=== PATIENT | female | born 1950 | race Caucasian/White ===

== ENCOUNTER 2020-07-07 08:58 | Outpatient (REF) | payer MEDICARE, SELFPAY ==
[2020-07-07 14:35] LABS: Thyroid Stimulating Hormone 1.04 uIU/mL (0.32-4.0)
[2020-07-07 15:05] LABS: T4 Thyroxine 6.6 ug/dL (4.5-12.0)
[2020-07-08 08:18] LABS: Triiodothyronine T3 Total 63 ng/dL (76-181)
== END 2020-07-07 08:59 | disposition home or self-care (01) ==
LOC: HO.10HDL 08:58
PROVIDERS: Visit Provider Internal Medicine Pulmonary Disease
DX: L65.9 Nonscarring hair loss, unspecified (principal)
CPT/HCPCS: 36415; 84436; 84443; 84480

== ENCOUNTER 2020-09-19 08:13 | Day surgery (SDC) | payer MEDICARE, SELFPAY ==
[2020-09-15 11:00] VITALS: BMI 22.6
--- NOTE | 2020-09-16 14:52 | HO.ANESPROP2 ---
Documented by User: Sharmin Lin 09/16/20 14:52 HPI - Anesthesia Eval Consult details Narrative: 70yo F for Colonoscopy FOR[facility] Past Medical History Medical History (Updated 09/15/20 @ 10:56 by Korin Villegas) No significant medical problems Surgical History Surgical History (Updated 09/15/20 @ 10:56 by Korin Villegas) H/O colonoscopy History of Social History Social History (Updated 09/15/20 @ 11:01 by Korin Villegas) Household Members: Spouse Patient Tobacco Use Status: Tobacco use Unknown Are you DNR?: No Advance Directives Information Provided: No Meds Allergies Allergy/AdvReac Type Severity Reaction Status Date / Time No Known Allergies Allergy Unverified 12/20/19 15:16 [No Known Allergies*] Home Medications Medication Instructions Recorded Confirmed Last Taken Type calcium carbonate-vitamin D2 1 tab PO DAILY 09/15/20 09/15/20 Unknown History [Calcium + Vitamin D] multivitamin 1 tab PO DAILY 09/15/20 09/15/20 Unknown History Exam Exam Date and Time: September 16, 2020 1452 Height,Weight and Vital Signs: Height 5 ft 5 in Weight 61.689 kg Assessment and Plan Assessment Anesthesia Assessment: Chart Reviewed Documented by User: Ann Peck 09/19/20 08:57 [facility] Past Medical History Medical History (Updated 09/15/20 @ 10:56 by Korin Villegas) No significant medical problems Surgical History Surgical History (Updated 09/15/20 @ 10:56 by Korin Villegas) H/O colonoscopy History of Social History Social History (Updated 09/15/20 @ 11:01 by Korin Villegas) Household Members: Spouse Patient Tobacco Use Status: Tobacco use Unknown Are you DNR?: No Advance Directives Information Provided: No Meds Allergies Allergy/AdvReac Type Severity Reaction Status Date / Time No Known Allergies Allergy Unverified 12/20/19 15:16 [No Known Allergies*] Home Medications Medication Instructions Recorded Confirmed Last Taken Type calcium carbonate-vitamin D2 1 tab PO DAILY 09/15/20 09/15/20 Unknown History [Calcium + Vitamin D] multivitamin 1 tab PO DAILY 09/15/20 09/15/20 Unknown History Exam Airway Mallampati Class: I TM Dist: >3cm Neck ROM: Full Heart: rrr Lungs: cta Assessment and Plan Assessment Anesthesia Assessment: Anesthesia Plan Discussed and Chart Reviewed Final Anesthetic Review NPO: Yes ASA Class: II Final Preanesthetic Review: No Changes in Pt Med Stat and Consent Obtained/Reviewed Patient Risk: Intermediate Procedure Risk: Intermediate Anesthetic Plan Anesthetic Plan: MAC: Disposition: Standard PACU
[2020-09-19 08:34] VITALS: BP 136/68; PULSE 65; RESP 18; TEMP 36.7; O2SAT 98
[2020-09-19] MEDS: Lactated Ringers 1,000 ML 100 ML IVCONT (08:41)
[2020-09-19 09:48] VITALS: BP 107/48; PULSE 65; RESP 16; TEMP 36.1; O2SAT 94
--- NOTE | 2020-09-19 09:52 | P.BOP_ITS ---
Brief Operative Note Date of Service: 09/19/20 Pre-op diagnosis: Screening Post-op diagnosis: other (Diverticulosis) Procedure: Colonoscopy to the cecum Surgeon: Rodrigo Moss Anesthesia: MAC Was an Analytical Chemistry Teacher used for this Procedure?: No Estimated blood loss (mL): 0 Pathology: none sent Condition: stable Disposition: PACU
[2020-09-19 10:03] VITALS: BP 104/57; PULSE 56; RESP 16; TEMP 36.1; O2SAT 99
[2020-09-19 10:18] VITALS: BP 105/48; PULSE 51; RESP 16; TEMP 36.1; O2SAT 98
[2020-09-19 10:51] VITALS: BP 114/48; PULSE 50; RESP 16; TEMP 36.1; O2SAT 100
--- NOTE | 2020-09-19 10:57 | OP_ITS ---
SURGEON: Rodrigo Moss MD INDICATIONS: The patient presents for followup of colorectal cancer screening. Full consent has been obtained from her for this, including risks of bleeding and perforation. PREOPERATIVE DIAGNOSIS: Colorectal cancer screening. POSTOPERATIVE DIAGNOSIS: PROCEDURE PERFORMED: Colonoscopy to the cecum. ESTIMATED BLOOD LOSS: COMPLICATIONS: ANESTHESIA: Monitored anesthesia care. ASSISTANTS: SPECIMENS: POSTOPERATIVE DIAGNOSES: Colorectal cancer screening, mild sigmoid diverticulosis, small internal hemorrhoids. DESCRIPTION OF PROCEDURE: The patient was placed in the left lateral decubitus position. The digital rectal exam revealed no abnormalities. The Olympus video pediatric colonoscope was entered into the rectum and advanced easily to the cecum. Once in the cecum, I did identify normal-appearing cecal pouch with appendiceal orifice and a normal-appearing ileocecal valve. There was transillumination of light deep in the right lower quadrant. The entire cecum was well visualized and appeared normal. Scope was slowly withdrawn assessing all mucosal surfaces carefully. Preparation was excellent. I did not visualize any sign of polyps, colitis, nor angiodysplasia. There was a mild amount of sigmoid diverticulosis. In the rectum, scope was retroflexed visualizing minimal internal hemorrhoids, but no other pathology. The rectal mucosa appeared normal. The scope was straightened and withdrawn from the patient. She tolerated the procedure well and was returned to recovery area in stable condition. IMPRESSION: 1. Mild sigmoid diverticulosis. 2. Small internal hemorrhoids. PLAN: Given today's negative exam, negative colonoscopies in 2004 and 2010, and no family history of colorectal cancer, I do not think she will need any further screening colonoscopies at this point given her age. She will otherwise see me on a p.r.n. basis. MD YAMIL Freeman/SPEEDY / [id number]
[2020-09-19 11:23] VITALS: BP 119/60; PULSE 57; RESP 16; O2SAT 99
== END 2020-09-19 13:11 | disposition home or self-care (01) ==
PROVIDERS: PCP Internal Medicine; Visit Provider Internal Medicine
PROC: 0DJD8ZZ Inspection of Lower Intestinal Tract, Via Natural or Artificial Opening Endoscopic (ICD-10-PCS; CPT 45378; principal; 2020-09-19 09:00)
DX: Z12.11 Encounter for screening for malignant neoplasm of colon (principal); Z86.010 Personal history of colon polyps; K57.30 Diverticulosis of large intestine without perforation or abscess without bleeding; K64.8 Other hemorrhoids; K58.1 Irritable bowel syndrome with constipation
CPT/HCPCS: G0105

== ENCOUNTER 2020-10-21 15:46 | Outpatient (REF) | payer MEDICARE, SELFPAY ==
--- NOTE | ~2020-10-21 | MM_ITS ---
EXAMINATION: MM SCREENING DIGITAL BREAST TOMOSYNTHESIS, BILATERAL CLINICAL INFORMATION: Screening. Asymptomatic. The lifetime risk of breast cancer based on the Tyrer-Cuzick Model is 5%. COMPARISON: Mammography: 09/17/2019, 09/11/2018, 08/09/2017, 07/05/2016, 12/22/2015, 07/01/2015, 05/20/2015. TECHNIQUE: Digital breast tomosynthesis is performed in both the craniocaudal and mediolateral oblique views along with computer-aided detection (CAD). Synthesized 2D images are generated from the tomosynthesis. FINDINGS: The breasts are heterogeneously dense, which may obscure small masses (ACR BI-RADS breast composition Category c). Breast tissue composition borders on average fibroglandular. The parenchymal pattern is similar to prior studies. There is no interval mass or architectural abnormality or developing density. No abnormal calcifications on the right. The axilla and skin contours are unremarkable. Left breast has focal calcifications central upper outer breast mid depth, possibly early vascular on tomography. It is uncertain if these are new or coarsening of old calcifications previously under surveillance. Patient will be recalled for additional magnification views. MM/MM tomosynthesis screening BI IMPRESSION: 1. Left: Calcifications central upper outer breast mid depth, possibly early vascular on tomography. It is uncertain if these are new or coarsening of calcifications previously under surveillance. 2. Right: There are no significant changes from prior study. ASSESSMENT: BI-RADS 0: Incomplete - Need Additional Imaging Evaluation RECOMMENDATION: 1. Additional views of the left breast (magnification CC, magnification ML). 2. Radiology department staff will contact the patient for additional imaging. This patient's information was entered into a reminder system with a target due date for their next mammogram.
== END 2020-10-21 15:47 | disposition home or self-care (01) ==
LOC: HO.MAMMO 15:46
PROVIDERS: PCP Internal Medicine; Visit Provider Internal Medicine
DX: Z12.31 Encounter for screening mammogram for malignant neoplasm of breast (principal)
CPT/HCPCS: 77063; 77067

== ENCOUNTER 2020-10-27 10:29 | Outpatient (REF) | payer MEDICARE, SELFPAY ==
--- NOTE | ~2020-10-27 | MM_ITS ---
EXAMINATION: MM DIAGNOSTIC DIGITAL MAMMOGRAPHY, LEFT CLINICAL INFORMATION: Recall from screening for calcifications central upper outer left breast mid depth. Prior history left breast calcifications under surveillance same quadrant. COMPARISON: Mammography: 10/21/2020, 09/17/2019, 09/11/2018, 08/09/2017, 07/05/2016 TECHNIQUE: Digital mammography is performed in the following views: Magnification CC, magnification ML x2. FINDINGS: The breasts are heterogeneously dense, which may obscure small masses (ACR BI-RADS breast composition Category c). The additional magnification views demonstrate a few new faint tubular-shaped calcifications central upper outer breast corresponding to recent screening mammography, possibly early ductal secretory type. Management plan is for short interval six-month follow-up left mammography in 6 months to include magnification views. The previously followed tightly grouped calcifications mid upper outer left breast residing slightly more posterior are uniform punctate and stable in number and appearance from prior remote diagnostic magnification views 2017 and 2016. Results are discussed with the patient at time of visit. MM/MM added views LT IMPRESSION: 1. New probable benign calcifications central upper outer left breast. 2. The prior grouped calcifications mid upper outer left breast under surveillance are stable. ASSESSMENT: BI-RADS 3: Probably Benign RECOMMENDATION: Diagnostic left mammography in 6 months. This patient's information was entered into a reminder system with a target due date for their next mammogram.
== END 2020-10-27 10:30 | disposition home or self-care (01) ==
LOC: HO.MAMMO 10:29
PROVIDERS: Visit Provider Internal Medicine
DX: R92.1 Mammographic calcification found on diagnostic imaging of breast (principal)
CPT/HCPCS: 77065

== ENCOUNTER 2020-12-17 09:27 | Outpatient (REF) | payer MEDICARE, SELFPAY ==
[2020-12-17 11:19] LABS: Appearance Urine CLEAR; Color Urine YELLOW; Glucose Urine UA NEG (NEG); Leukocyte Esterase Urine TRACE (NEG); Nitrite Urine NEG (NEG); PH 6.5 (5.0-8.0); Specific Gravity - Urine 1.015 (1.005-1.025); Urine Blood NEG (NEG); Urine Ketones NEG (NEG); Urine Protein NEG (NEG-TRACE)
[2020-12-17 11:22] LABS: MANUAL DIFF FLAG NO
[2020-12-17 11:31] LABS: Basophils Percent Auto 0.6 % (0-2); Eosinophils Absolute Auto 0.1 X10*3/uL (0.0-0.4); Eosinophils Percent Auto 2.9 % (0-4); Hematocrit 38.5 % (37-47); Hemoglobin 12.8 g/dl (12.0-16.0); Imm Gran Abs Auto 0.01 X10*3/uL (0.00-0.03); Imm Gran Pct Auto 0.2 % (0.0-0.4); Lymphocytes Absolute Auto 1.5 X10*3/uL (1.2-4.9); Mean Corpuscular HGB Conc 33.2 g/dl (31.0-35.0); Mean Corpuscular Hemoglobin 31.4 pg (27.0-33.0); Mean Corpuscular Volume 94.6 fL (80-98); Mean Platelet Volume 11.4 fL (9.4-12.3); Monocytes Absolute Auto 0.4 X10*3/uL (0.1-1.2); Monocytes Percent Auto 7.3 % (2-11); Neutrophils Absolute Auto 2.8 X10*3/uL (2.0-8.3); Platelet Count 216 X10*3/uL (160-400); Red Blood Count 4.07 X10*6/uL (4.20-5.50); Red Cell Distribution Width 12.5 % (11.0-16.0); White Blood Count 4.8 X10*3/uL (4.8-10.8)
[2020-12-17 11:32] LABS: RBC Urine 0 /HPF (0); Squamous Epithelial Cell Urine TRACE /LPF; WBC Urine 0-2 /HPF (0-4)
[2020-12-17 12:44] LABS: Alanine Aminotransferase 15 U/L (0-31); Albumin Level 4.1 g/dL (3.5-5.0); Alkaline Phosphatase 61 U/L (39-117); Anion Gap 11 (12-20); Aspartate Amino Transferase 21 U/L (5-31); Bilirubin Total 0.8 mg/dL (0.0-1.0); Blood Urea Nitrogen 18 mg/dL (9-16); Calcium 9.1 mg/dL (8.4-10.2); Carbon Dioxide 27 mmol/L (22-29); Chloride 109 mmol/L (96-108); Cholesterol 191 mg/dL; Estimated Glomerular Filt Rate > 60; Glucose Fasting 97 mg/dL (60-99); HDL Cholesterol 65 mg/dL; LDL Cholesterol Calculated 116 mg/dl; Potassium 4.5 mmol/L (3.3-5.1); Sodium 142 mmol/L (135-145); Total Protein 6.1 g/dL (6.5-8.0); Triglycerides 50 mg/dL
[2020-12-17 13:16] LABS: Thyroid Stimulating Hormone 0.65 uIU/mL (0.32-4.0); Vitamin D 25-OH Total 51.4 ng/mL (>30)
== END 2020-12-17 09:28 | disposition home or self-care (01) ==
LOC: HO.HMGCLDS 09:27
PROVIDERS: PCP Internal Medicine; Visit Provider Internal Medicine
DX: Z00.00 Encounter for general adult medical examination without abnormal findings (principal)
CPT/HCPCS: 36415; 80053; 80061; 81001; 82306; 84443; 85025

== ENCOUNTER → 2020-12-25 14:49 | Outpatient (BNVA) | payer MEDICARE, SELFPAY | PROVIDERS: PCP Internal Medicine; Visit Provider Advanced Practice Midwife | DX: Z01.419 Encounter for gynecological examination (general) (routine) without abnormal findings (principal); N90.89 Other specified noninflammatory disorders of vulva and perineum | CPT/HCPCS: 99212 ==

== ENCOUNTER 2021-02-16 10:26 | Outpatient (REF) | payer MEDICARE, SELFPAY | END 2021-02-16 10:27 | disposition home or self-care (01) | LOC: HO.LAB 10:26 | PROVIDERS: PCP Internal Medicine; Visit Provider Obstetrics & Gynecology | DX: N90.89 Other specified noninflammatory disorders of vulva and perineum (principal) | CPT/HCPCS: 88305; 88312 ==

== ENCOUNTER 2021-06-04 12:25 | Outpatient (REF) | payer MEDICARE, SELFPAY ==
--- NOTE | ~2021-06-04 | MM_ITS ---
EXAMINATION: MM DIAGNOSTIC DIGITAL BREAST TOMOSYNTHESIS, LEFT CLINICAL INFORMATION: Short interval follow-up probable benign calcifications central upper outer left breast. No known family history breast cancer. The lifetime risk of breast cancer based on the Tyrer-Cuzick Model is 5%. COMPARISON: Mammography: 10/27/2020, 10/21/2020 (BI-RADS 0), diagnostic mammography 08/09/2017 (BI-RADS 2). TECHNIQUE: Digital breast tomosynthesis is performed in both the craniocaudal and mediolateral oblique views along with computer-aided detection (CAD). Synthesized 2D images are generated from the tomosynthesis. Additional magnification CC and magnification ML views are obtained. FINDINGS: There are scattered areas of fibroglandular density (ACR BI-RADS breast composition Category b). Breast tissue composition borders on heterogeneously dense. There is no interval mass or architectural abnormality or developing density. The axilla and skin contours are unremarkable. There are tightly grouped punctate calcifications mid upper outer left breast previously under surveillance which are stable since prior diagnostic exam 2018. The more recent loosely grouped calcifications central upper outer left breast are unchanged in number and geographic extent. The calcifications appear amorphous on the CC view and do not have the typical appearance for early ductal secretory type. The calcifications are unchanged in appearance on the ML view. Results are discussed with the patient and her spouse. Management options were discussed including stereotactic sampling versus continued short interval follow-up diagnostic mammography. Patient is in favor of stereotactic sampling. MM/MM tomosynthesis diagnostic LT IMPRESSION: Although unchanged in number, the calcifications for follow-up appear amorphous on the CC view rather than early ductal secretory type. ASSESSMENT: BI-RADS 4: Suspicious (subcategory 4A: Low suspicion for malignancy) RECOMMENDATION: Stereotactic sampling left breast calcifications. This patient's information was entered into a reminder system with a target due date for their next mammogram.
== END 2021-06-04 12:26 | disposition home or self-care (01) ==
LOC: HO.MAMMO 12:25
PROVIDERS: PCP Internal Medicine; Visit Provider Internal Medicine
DX: R92.1 Mammographic calcification found on diagnostic imaging of breast (principal)
CPT/HCPCS: 77061; 77065

== ENCOUNTER → 2021-06-11 09:09 | Outpatient (BNVA) | payer MEDICARE, SELFPAY | PROVIDERS: PCP Internal Medicine; Visit Provider Surgery | DX: R92.8 Other abnormal and inconclusive findings on diagnostic imaging of breast (principal) | CPT/HCPCS: 99202 ==

== ENCOUNTER 2021-06-12 07:57 | Outpatient (REF) | payer MEDICARE, SELFPAY ==
--- NOTE | ~2021-06-12 | MM_ITS ---
EXAMINATION: STEREOTACTIC TOMOSYNTHESIS-GUIDED VACUUM-ASSISTED BREAST BIOPSY, LEFT SPECIMEN RADIOGRAPH, LEFT POST PROCEDURE DIGITAL MAMMOGRAM, LEFT CLINICAL INFORMATION: Grouped calcifications mid upper outer left breast for sampling. COMPARISON: Mammography 10/21/2020, 10/27/2020, 06/04/2021. TECHNIQUE/PROCEDURE: Informed consent was obtained from the patient after discussion of the benefits, risks, and alternatives to biopsy today. Patient appeared to understand. Gave opportunity for questions. Patient signed consent form. BIOPSY TABLE: [employer] Affirm Prone Biopsy System. LESION: Grouped calcifications mid upper outer left breast. LOCAL ANESTHESIA: 10 mL carbonated 1% lidocaine; 10 mL 1% lidocaine with epinephrine. DERMATOTOMY: Single skin erasto dermatotomy performed. NEEDLE: Stayfuliva 9-gauge vacuum assisted core biopsy device. APPROACH: craniocaudal. TARGETING: Combination of digital breast tomosynthesis and stereotactic digital mammography used for targeting. CORES: 8. CLIP: [employer] SecurMark Cylinder-shaped marker. SPECIMEN RADIOGRAPH: Specimen radiograph is taken in separate room using digital mammography. The index calcifications are in the excised cores. There are at least 8 calcifications in the cores. POST PROCEDURE UNILATERAL DIGITAL MAMMOGRAM: The post biopsy mammogram is performed in separate room using separate digital mammography equipment from the biopsy procedure. CC and ML views are obtained. There are scattered areas of fibroglandular density (breast composition category: b). The clip marker is in position. The calcifications are markedly decreased at the biopsy site. No gross hematoma. The patient tolerated the procedure well. No immediate complications. Home instructions reviewed with the patient. Final pathology results are pending. MM/MM stereotactic biopsy LT IMPRESSION: 1. Digital tomosynthesis-guided core biopsy left breast with clip placement. 2. Specimen radiograph taken and post procedure mammogram. There is satisfactory positioning of the biopsy clip. 3. Final pathology results pending. An addendum report will be issued.
[2021-06-12] MEDS: Lidocaine HCl 1 % 20 ML VIAL 10 ML SUBCUT (09:20)
[2021-06-12] MEDS: Sodium Bicarbonate 8.4% 50 MEQ/50 ML VIAL SUBCUT (09:22)
== END 2021-06-12 07:58 | disposition home or self-care (01) ==
LOC: HO.MAMMO 07:57
PROVIDERS: PCP Internal Medicine; Visit Provider Surgery
DX: R92.1 Mammographic calcification found on diagnostic imaging of breast (principal)
CPT/HCPCS: 19081; 88305; 88360; A4648

== ENCOUNTER → 2021-06-16 10:11 | Outpatient (BNVA) | payer MEDICARE, SELFPAY | PROVIDERS: PCP Internal Medicine; Visit Provider Surgery | DX: D05.12 Intraductal carcinoma in situ of left breast (principal) | CPT/HCPCS: 99212 ==

== ENCOUNTER 2021-11-16 11:31 | Outpatient (REF) | payer MEDICARE, SELFPAY ==
[2021-11-16 13:47] LABS: MANUAL DIFF FLAG NO
[2021-11-16 13:58] LABS: C Reactive Protein 1.78 mg/dL (< or = 0.50)
[2021-11-16 14:23] LABS: Free T4 (Free Thyroxine) 1.73 ng/dL (0.71-1.85); Thyroid Stimulating Hormone < 0.01 uIU/mL (0.32-4.0)
[2021-11-16 15:23] LABS: Erythrocyte Sedimentation Rate 16 MM/HR (0-20)
[2021-11-16 18:27] LABS: Basophils Percent Auto 0.3 % (0-2); Eosinophils Absolute Auto 0.1 X10*3/uL (0.0-0.4); Eosinophils Percent Auto 1.1 % (0-4); Hematocrit 39.1 % (37.0-47.0); Hemoglobin 12.6 g/dl (12.0-16.0); Imm Gran Abs Auto 0.02 X10*3/uL (0.00-0.03); Imm Gran Pct Auto 0.3 % (0.0-0.4); Lymphocytes Absolute Auto 1.1 X10*3/uL (1.2-4.9); Lymphocytes Percent Auto 18.3 % (20-40); Mean Corpuscular HGB Conc 32.2 g/dl (31.0-35.0); Mean Corpuscular Hemoglobin 30.4 pg (27.0-33.0); Mean Corpuscular Volume 94.4 fL (80.0-98.0); Mean Platelet Volume 10.7 fL (9.4-12.3); Monocytes Absolute Auto 0.6 X10*3/uL (0.1-1.2); Monocytes Percent Auto 10.3 % (2-11); Neutrophils Absolute Auto 4.3 x10*3/uL (2.0-8.3); Neutrophils Percent Auto 69.7 % (45-73); Platelet Count 261 X10*3/uL (160-400); Red Blood Count 4.14 X10*6/uL (4.20-5.50); Red Cell Distribution Width 12.1 % (11.0-16.0); White Blood Count 6.1 X10*3/uL (4.8-10.8)
[2021-11-18 05:32] LABS: Triiodothyronine T3 Free 5.8 pg/mL (2.3-4.2)
== END 2021-11-16 11:32 | disposition home or self-care (01) ==
LOC: HO.HMGCLDS 11:31
PROVIDERS: PCP Internal Medicine; Visit Provider Internal Medicine
DX: M54.2 Cervicalgia (principal)
CPT/HCPCS: 36415; 84439; 84443; 84481; 85025; 85652; 86140

== ENCOUNTER → 2021-11-25 09:18 | Outpatient (BNVA) | payer MEDICARE, SELFPAY | PROVIDERS: PCP Internal Medicine; Visit Provider Internal Medicine Endocrinology, Diabetes & Metabolism | DX: E05.90 Thyrotoxicosis, unspecified without thyrotoxic crisis or storm (principal) | CPT/HCPCS: 99202 ==

== ENCOUNTER → 2021-12-01 10:23 | Outpatient (REF) | payer MEDICARE, SELFPAY ==
--- NOTE | ~2021-12-01 | NM_ITS ---
EXAMINATION: NM THYROID UPTAKE AND SCAN CLINICAL INFORMATION: Thyrotoxicosis. Tender neck. COMPARISON: None TECHNIQUE: Following the oral administration of 0.27 microcuries of I-123 sodium iodide, thyroid uptake was performed and expressed as a percentage of the administrated dose. Gamma scintillation camera images of the thyroid in the anterior and right and left anterior oblique views were obtained using a pinhole collimator following the administration of 10 mCi Tc-99m pertechnetate. FINDINGS: On thyroid scan no thyroid gland is visualized. A 24-hour radioactive iodine uptake is 0.36%. On Technetium imaging there is faint visualization of thyroid gland after more than 5 minutes of imaging. NM/NM thyroid w uptake IMPRESSION: Findings consistent with hypoactive thyroid gland secondary to inflammatory process. Radioactive thyroid uptake is 0.36% at 24 hours. The thyroid gland is barely visible on Technetium study.
== END ==
LOC: HO.NUCMED 10:23
PROVIDERS: PCP Internal Medicine; Visit Provider Internal Medicine Endocrinology, Diabetes & Metabolism
DX: E05.90 Thyrotoxicosis, unspecified without thyrotoxic crisis or storm (principal)
CPT/HCPCS: 78014; A9512; A9516

== ENCOUNTER 2021-12-02 11:58 | Outpatient (REF) | payer MEDICARE, SELFPAY ==
[2021-12-02 14:27] LABS: Free T4 (Free Thyroxine) 1.75 ng/dL (0.71-1.85); Thyroid Stimulating Hormone < 0.01 uIU/mL (0.32-4.0)
[2021-12-03 23:56] LABS: Triiodothyronine T3 Free 6.3 pg/mL (2.3-4.2)
== END 2021-12-02 11:59 | disposition home or self-care (01) ==
LOC: HO.LAB 11:58
PROVIDERS: PCP Internal Medicine; Visit Provider Internal Medicine Endocrinology, Diabetes & Metabolism
DX: E05.90 Thyrotoxicosis, unspecified without thyrotoxic crisis or storm (principal)
CPT/HCPCS: 36415; 84439; 84443; 84481

== ENCOUNTER 2022-01-04 14:11 | Outpatient (REF) | payer MEDICARE, SELFPAY ==
[2022-01-04 17:25] LABS: Free T4 (Free Thyroxine) 0.96 ng/dL (0.71-1.85); Thyroid Stimulating Hormone 0.06 uIU/mL (0.32-4.0)
[2022-01-06 04:56] LABS: Triiodothyronine T3 Free 2.9 pg/mL (2.3-4.2)
== END 2022-01-04 14:12 | disposition home or self-care (01) ==
LOC: HO.HMGCLDS 14:11
PROVIDERS: PCP Internal Medicine; Visit Provider Internal Medicine Endocrinology, Diabetes & Metabolism
DX: E05.90 Thyrotoxicosis, unspecified without thyrotoxic crisis or storm (principal)
CPT/HCPCS: 36415; 84439; 84443; 84481

== ENCOUNTER 2022-02-10 14:56 | Outpatient (REF) | payer MEDICARE, SELFPAY ==
[2022-02-10 17:13] LABS: Free T4 (Free Thyroxine) 0.93 ng/dL (0.71-1.85)
== END 2022-02-10 14:57 | disposition home or self-care (01) ==
LOC: HO.HMGCLDS 14:56
PROVIDERS: PCP Internal Medicine; Visit Provider Internal Medicine Endocrinology, Diabetes & Metabolism
DX: E05.90 Thyrotoxicosis, unspecified without thyrotoxic crisis or storm (principal)
CPT/HCPCS: 36415; 84439; 84443

== ENCOUNTER → 2022-02-19 14:37 | Outpatient (BNVA) | payer MEDICARE, SELFPAY | PROVIDERS: PCP Internal Medicine; Visit Provider Internal Medicine Endocrinology, Diabetes & Metabolism | DX: E05.90 Thyrotoxicosis, unspecified without thyrotoxic crisis or storm (principal) | CPT/HCPCS: 99212 ==

== ENCOUNTER 2022-06-02 15:36 | Outpatient (REF) | payer MEDICARE, SELFPAY ==
--- NOTE | ~2022-06-02 | XR_ITS ---
EXAMINATION: XR ABDOMEN WITH DECUBITUS VIEWS CLINICAL INDICATION: Right upper quadrant abdominal pain. COMPARISON: None TECHNIQUE: Abdomen with upright views. FINDINGS: Moderate scattered stool is seen in colon without any obstruction. There is no free air or air-fluid levels in upright view. There is no organomegaly. There is mild dextroscoliosis of mid lumbar spine. XR/XR abdomen w decubitus IMPRESSION: Mild constipation.
[2022-06-02 15:54] LABS: MANUAL DIFF FLAG NO
[2022-06-02 17:42] LABS: Basophils Absolute Auto 0.1 X10*3/uL (0.0-0.2); Basophils Percent Auto 0.8 % (0-2); Eosinophils Absolute Auto 0.1 X10*3/uL (0.0-0.4); Eosinophils Percent Auto 1.9 % (0-4); Hematocrit 41.1 % (37.0-47.0); Hemoglobin 13.6 g/dl (12.0-16.0); Imm Gran Abs Auto 0.02 X10*3/uL (0.00-0.03); Imm Gran Pct Auto 0.3 % (0.0-0.4); Lymphocytes Absolute Auto 1.5 X10*3/uL (1.2-4.9); Lymphocytes Percent Auto 24.3 % (20-40); Mean Corpuscular HGB Conc 33.1 g/dl (31.0-35.0); Mean Corpuscular Hemoglobin 30.9 pg (27.0-33.0); Mean Corpuscular Volume 93.4 fL (80.0-98.0); Mean Platelet Volume 10.3 fL (9.4-12.3); Monocytes Absolute Auto 0.5 X10*3/uL (0.1-1.2); Monocytes Percent Auto 8.3 % (2-11); Neutrophils Absolute Auto 4.1 x10*3/uL (2.0-8.3); Neutrophils Percent Auto 64.4 % (45-73); Platelet Count 226 X10*3/uL (160-400); Red Cell Distribution Width 12.4 % (11.0-16.0); White Blood Count 6.3 X10*3/uL (4.8-10.8)
[2022-06-02 17:53] LABS: Appearance Urine Clear; Color Urine Yellow; Glucose Urine UA Negative (Negative); Leukocyte Esterase Urine Negative (Negative); Nitrite Urine Negative (Negative); Specific Gravity - Urine <= 1.005 (1.005-1.025); Urine Blood Negative (Negative); Urine Ketones Negative (Negative); Urine Protein Negative (Neg-Trace)
[2022-06-02 18:27] LABS: Alanine Aminotransferase 47 U/L (0-31); Albumin Level 4.3 g/dL (3.5-5.0); Alkaline Phosphatase 71 U/L (39-117); Anion Gap 13 (12-20); Aspartate Amino Transferase 36 U/L (5-31); Bilirubin Total 0.5 mg/dL (0.0-1.0); Blood Urea Nitrogen 19 mg/dL (9-16); C Reactive Protein 0.24 mg/dL (< or = 0.50); Calcium 9.6 mg/dL (8.4-10.2); Carbon Dioxide 29 mmol/L (22-29); Chloride 105 mmol/L (96-108); Estimated Glomerular Filt Rate > 60; Glucose Random 73 mg/dL (60-115); Potassium 4.6 mmol/L (3.3-5.1); Sodium 142 mmol/L (135-145); Total Protein 6.6 g/dL (6.5-8.0)
== END 2022-06-02 15:37 | disposition home or self-care (01) ==
LOC: HO.LAB 15:36
PROVIDERS: PCP Internal Medicine; Visit Provider Internal Medicine
DX: R10.11 Right upper quadrant pain (principal)
CPT/HCPCS: 36415; 74021; 80053; 81003; 85025; 86140

== ENCOUNTER 2022-06-18 13:07 | Outpatient (REF) | payer MEDICARE, SELFPAY ==
[2022-06-18 14:48] LABS: Alanine Aminotransferase 65 U/L (0-31); Alkaline Phosphatase 69 U/L (39-117); Aspartate Amino Transferase 61 U/L (5-31); Bilirubin Direct < 0.2 mg/dL (0.0-0.5); Bilirubin Total 0.5 mg/dL (0.0-1.0); Total Protein 6.1 g/dL (6.5-8.0)
== END 2022-06-18 13:08 | disposition home or self-care (01) ==
LOC: HO.HMGCLDS 13:07
PROVIDERS: PCP Internal Medicine; Visit Provider Internal Medicine
DX: Z13.89 Encounter for screening for other disorder (principal)
CPT/HCPCS: 36415; 80076

== ENCOUNTER 2022-06-18 13:18 | Outpatient (REF) | payer MEDICARE, SELFPAY ==
--- NOTE | ~2022-06-18 | US_ITS ---
EXAMINATION: US PELVIS CLINICAL INFORMATION: Right lower quadrant pain. Postmenopausal, age 71. Prior history uterine fibroids. COMPARISON: CT abdomen and pelvis with contrast 06/30/2015; MR pelvis with contrast 05/17/2005 (report); ultrasound pelvis 05/06/2005 (report). TECHNIQUE: Ultrasound of the pelvis is performed using both transabdominal and transvaginal transducers along with Doppler. Transvaginal imaging is performed due to inadequate visualization transabdominally. FINDINGS: Uterus: The uterus is anteverted and measures 6.4 x 4.2 x 5.5 cm. Volume 77 mL. Prior ultrasound measurements 2006:12.6 x 5.2 x 7.6 cm; volume 259 mL The double wall endometrial thickness is normal: 2.5 mm. Again, there is an intramural left uterine fundal/body fibroid, nearly isoechoic, mildly heterogeneous, with overall dimensions 4.8 x 1.6 x 4.2 cm. Prior measurements 2006: 4.0 x 2.0 x 3.9 cm. There is also a small heavily calcified fibroid peripheral intramural close to some serous right body measuring 0.7 x 0.6 x 0.9 cm. Prior ultrasound report 2005 notes 2 cm subserous fundal fibroid. Adnexa: Right ovary measures 2.1 x 1.3 x 1.9 cm. Volume 2.8 mL. Left ovary: Not visualized. There is no visible pelvic adnexal mass. No pelvic ascites. US/US pelvic and transvaginal IMPRESSION: -Uterine fibroids, larger 4.8 cm. Prior measurement 4.0 cm in 2006. No significant change. -Right ovary unremarkable. Left ovary not visualized. -No pelvic ascites.
== END 2022-06-18 13:19 | disposition home or self-care (01) ==
LOC: HO.HMGCX 13:18
PROVIDERS: PCP Internal Medicine; Visit Provider Internal Medicine
DX: R10.31 Right lower quadrant pain (principal)
CPT/HCPCS: 36415; 76830; 76856; 80076

== ENCOUNTER → 2022-07-21 13:26 | Outpatient (BNVA) | payer MEDICARE, SELFPAY | PROVIDERS: PCP Internal Medicine; Visit Provider Obstetrics & Gynecology | DX: R10.9 Unspecified abdominal pain (principal); D21.9 Benign neoplasm of connective and other soft tissue, unspecified | CPT/HCPCS: 99212 ==

== ENCOUNTER → 2022-07-26 10:59 | Outpatient (BNVA) | payer MEDICARE, SELFPAY | PROVIDERS: PCP Internal Medicine; Visit Provider Anesthesiology | DX: R10.9 Unspecified abdominal pain (principal); G58.9 Mononeuropathy, unspecified | CPT/HCPCS: 99202 ==

== ENCOUNTER 2022-08-26 10:31 | Day surgery (SDC) | payer MEDICARE, SELFPAY ==
[2022-08-24 11:05] VITALS: BMI 25.1
--- NOTE | 2022-08-25 09:14 | P.CONAN_ITS ---
Documented by User: Sharmin Lin NP 08/25/22 09:14 HPI - Anesthesia Eval Consult details Narrative: 72yo F for Right Diagnostic Transversus Abdominal Plane Block PMFSH Active Problems Active Problems: All Active Problems (Updated 08/24/22 @ 10:56 by Rosa Menchaca, RN) Encounter for annual routine gynecological examination (Acute) Vulvar lesion (Acute) Abnormal mammogram of left breast (Acute) DCIS (ductal carcinoma in situ) (Acute) Abdominal pain (Acute) Myoma (Acute) Mononeuropathy, unspecified (Acute) Hyperthyroidism (Acute) Past Medical History Medical History Arthritis Back pain Ductal carcinoma of breast Hyperthyroidism No significant medical problems Family History Family History Mother Metastatic melanoma Surgical History Surgical History H/O colonoscopy History of History of lumpectomy of left breast Social History Social History Household Members: Spouse Alcohol intake: current Alcohol intake frequency: holidays/special occasions only Patient Tobacco Use Status: Never used Tobacco Advance Directives: No Advance Directives Information Provided: Yes Advance Directives on File: No Sexual orientation: Straight/Heterosexual Gender identity: Female Meds Allergies Allergy/AdvReac Type Severity Reaction Status Date / Time sulfamethoxazole Allergy Intermediate Diarrhea Verified 08/26/22 10:47 [From Bactrim] trimethoprim [From Bactrim] Allergy Intermediate Diarrhea Verified 08/26/22 10:47 ibuprofen AdvReac Unknown Gastrointestinal Verified 08/26/22 10:47 Upset Home Medications Medication Instructions Recorded Confirmed Last Taken Type calcium carb-ergocalciferol (vit 1 tab PO DAILY 09/15/20 08/24/22 Unknown History D2) 600 mg calcium-200 unit tablet multivitamin 1 tab PO DAILY 09/15/20 08/24/22 Unknown History anastrozole 1 mg tablet 1 mg PO DAILY 11/25/21 08/24/22 Unknown History cholecalciferol (vitamin D3) 25 25 mcg PO DAILY 11/25/21 08/24/22 Unknown History mcg (1,000 unit) capsule lorazepam 1 mg tablet 1 mg PO BEDTIME PRN Insomnia 02/19/22 08/24/22 Unknown History Exam Exam Date and Time: August 25, 2022 0914 Height,Weight and Vital Signs: Height 5 ft 4 in Weight 66.224 kg Pertinent Lab Results Pertinent Lab Results: Laboratory Tests 06/02/22 06/02/22 15:51 15:51 WBC 6.3 Hgb 13.6 Hct 41.1 Plt Count 226 Sodium 142 Potassium 4.6 Chloride 105 Carbon Dioxide 29 BUN 19 H Creatinine 0.77 Assessment and Plan Assessment Anesthesia Assessment: Chart Reviewed Documented by User: Anne Sanchez MD 08/26/22 11:35 PMFSH Past Medical History Medical History Arthritis Back pain Ductal carcinoma of breast Hyperthyroidism No significant medical problems Family History Family History Mother Metastatic melanoma Family history of problems with anesthesia: No Surgical History Surgical History H/O colonoscopy History of History of lumpectomy of left breast History of Problems with Anesthesia: No Social History Social History Household Members: Spouse Alcohol intake: current Alcohol intake frequency: holidays/special occasions only Patient Tobacco Use Status: Never used Tobacco Advance Directives: No Advance Directives Information Provided: Yes Advance Directives on File: No Sexual orientation: Straight/Heterosexual Gender identity: Female Meds Allergies Allergy/AdvReac Type Severity Reaction Status Date / Time sulfamethoxazole Allergy Intermediate Diarrhea Verified 08/26/22 10:47 [From Bactrim] trimethoprim [From Bactrim] Allergy Intermediate Diarrhea Verified 08/26/22 10:47 ibuprofen AdvReac Unknown Gastrointestinal Verified 08/26/22 10:47 Upset Home Medications Medication Instructions Recorded Confirmed Last Taken Type calcium carb-ergocalciferol (vit 1 tab PO DAILY 09/15/20 08/24/22 Unknown History D2) 600 mg calcium-200 unit tablet multivitamin 1 tab PO DAILY 09/15/20 08/24/22 Unknown History anastrozole 1 mg tablet 1 mg PO DAILY 11/25/21 08/24/22 Unknown History cholecalciferol (vitamin D3) 25 25 mcg PO DAILY 11/25/21 08/24/22 Unknown Hi story mcg (1,000 unit) capsule lorazepam 1 mg tablet 1 mg PO BEDTIME PRN Insomnia 02/19/22 08/24/22 Unknown History Exam Airway Mallampati Class: I TM Dist: >3cm Neck ROM: Full Loose/Missing/Broken Teeth: No Heart: rr Lungs: cta Assessment and Plan Assessment Anesthesia Assessment: Anesthesia Plan Discussed Final Anesthetic Review Family History of Problems with Anesthesia: No History of Problems with Anesthesia: No NPO: Yes ASA Class: I Final Preanesthetic Review: No Changes in Pt Med Stat, Meds/Allgs Chart Reviewed, Consent Obtained/Reviewed and Anes Risks/Benef Reviewed Patient Risk: Low Procedure Risk: Low Anesthetic Plan Anesthetic Plan: GA Disposition: Standard PACU
--- OUTSIDE RECORDS SUMMARY | 2022-08-26 10:33 | XMS_ITS ---
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 Propagator Laborer Name Role Phone Rodrigo Moss [facility] [phone] PROBLEMS Type Condition ICD9-CM Code UMD50-GJ Code Onset Dates Condition Status SNOMED Code Problem Encounter for screening for malignant neoplasm of colon Z12.11 Active 126935557 Problem History of adenomatous polyp of colon Z86.010 Active 364533957 Problem Nausea and vomiting, intractability of vomiting not specified, unspecified vomiting type R11.2 Active 10442780 Problem RLQ abdominal pain R10.31 Active 51031 4002 Problem Encounter for screening for malignant neoplasm of rectum Z12.12 Active 246744709 Problem Elevated liver function tests R79.89 Active 076916043 Problem Preprocedural examination Z01.818 Active 279901301408810 Problem Diarrhea, unspecified type R19.7 Active 46232074 Problem Irritable bowel syndrome with constipation K58.1 Active 067976210 Problem Diverticulosis of colon K57.30 Active 466091990 Problem Elevated liver enzymes R74.8 Active 108960191 ALLERGIES Substance Reaction Event Type Date Status Bactrim Unknown Drug Allergy Jun, Active ENCOUNTERS Encounter Location Date Diagnosis [facility] [address] [place], [place] Jun, Elevated liver function tests R79.89 [facility] [address] [place] [address] [place] 09 Jun, 2022 RLQ abdominal pain R10.31 and Elevated liver enzymes R74.8 [facility] [address] [facility] [place] Jun, [facility] [address], [place] [phone] Sep, Colon cancer screening Z12.11 ; Other hemorrhoids K64.8 and Diverticulosis of colon K57.30 [facility] [address] [place] [address] [place] Jun, Irritable bowel syndrome with constipation K58.1 ; History of adenomatous polyp of colon Z86.010 ; Encounter for screening for malignant neoplasm of colon Z12.11 and Preprocedural examination Z01.818 [facility] [address] [place] [address] Jun, [facility] [address] [place] [address] Nov, Diarrhea, unspecified type R19.7 and Nausea and vomiting, intractability of vomiting not specified, unspecified vomiting type R11.2 [facility] [address] [place] [address] Apr, Encounter for screening for malignant neoplasm of colon Z12.11 [facility] [address] [place] [phone] Oct, Preprocedural examination Z01.818 ; History of adenomatous polyp of colon Z86.010 ; Encounter for screening for malignant neoplasm of colon Z12.11 and Encounter for screening for malignant neoplasm of rectum Z12.12 [facility] [address], [place] [id number] Apr, [facility] ER [address], [place] [id number] Jan, [facility] [address], [place] [phone] Jun, [facility] ER [address], [place] [id number] May, [facility] [address], [place] [id number] Apr, [facility] [address], [place] [id number] Mar, [facility] [address], [place] [id number] Jan, [facility] ER [address], [place] [id number] August, IMMUNIZATIONS Vaccine Route Administration Date Status Influenza Unknown Dec 03, 2021 Administered SOCIAL HISTORY Never Assessed REASON FOR REFERRAL FUNCTIONAL STATUS PLAN OF CARE Activity Details VITAL SIGNS Weight 145 lbs 2022-06-10 Weight 136 lbs 2020-06-10 Weight 140 lbs 2015-10-07 Height 64.5 in 2022-06-10 Height 65 in 2020-06-10 Height 65 in 2015-10-07 BMI 24.50 kg/m2 2022-06-10 BMI 22.63 kg/m2 2020-06-10 BMI 23.29 kg/m2 2015-10-07 Heart Rate 56 /min 2020-06-10 Heart Rate 60 /min 2015-10-07 Temperature 97.5 degrees Fahrenheit Blood pressure systolic 000 mm Hg Blood pressure diastolic 00 mm Hg 2022-06 MEDICATIONS Medication Instructions Dosage Frequency Start Date End Date Duration Status Vitamin D 1000 UNIT Orally Once a day 1 tablet 24h 30 day(s) Active Calcium 600 + D 600-200 MG-UNIT Orally Twice a day 1 tablet 12h Active Anastrozole 1 MG TAKE 1 TABLET BY MOUTH EVERY DAY 90 Active Hyoscyamine Sulfate 0.125 MG Sublingual Every 4 to 6 hours as needed for abdominal discomfort/cramp s use 1 or 2 tablets Jun, 30 days Active Multivitamin Act simi PROCEDURES Procedure Date Ordered Result Body Site TOBACCO NON-USER June 10, 2022 COLORECTAL CA SCREEN DOC REV June 10, 2020 DOC MEDS VERIFIED W/PT OR RE June 10, 2020 DOC MEDS VERIFIED W/PT OR RE June 10, 2022 PRES/ABSN URINE INCON ASSESS June 10, 2020 COLORECTAL CA SCREEN DOC REV June 10, 2022 TEST FOR BLOOD, FECES Apr 15, 2016 BP SCR PRFRM RCMDD DEFIND SCR INTVL June 10, 2020 BP SCR NOT PRFRM REC REASON NOS June 10, 2022 TOBACCO NON-USER June 10, 2020 COLOREC CNCR SCR;COLNSCPY NO HI RSK September 19, 2020 RESULTS Name Result Date Reference Range Liver Panel 2022-06-18 Bilirubin Total 0.5 0.0-1.0 Bilirubin Direct < 0.2 0.0-0.5 Aspartate Amino Transferase 61 5-31 Alanine Aminotransferase 65 0-3 1 Total Protein 6.1 6.5-8.0 Albumin Level 4.0 3.5-5.0 Alkaline Phosphatase 69 39-117 US pelvic and transvaginal 2022-06-18 Hemoccult Cards (Screening) 2016-04-15 Sample 1 neg Sample 2 neg Sample 3 neg REASON FOR VISIT Patient presents today for abd pain, PT PRESENTS TODAY FOR Rt lower quadrant pain, screening, patient presents today for screening colonoscopy, want to do a telephone OV, hemoccult cards, screening colonoscopy, screening colonoscopy Insurance Providers Health Insurance Type Health Plan Insurance Address Health Plan Insurance Phone Health Plan Insurance Name Health Plan Coverage Dates Member ID Patient Relationship to Subscriber Patient Address Patient Phone Patient Name Patient Date of Subscriber ID Subscriber Name Subscriber Date of Group [facility] [address] [facility] [phone] [place] [address] ZEENAT NICHOLS [id number] MEDICARE OF [place] [address] [facility] [address] MEDICARE OF [facility] ZEENAT NICHOLS [id number] MEDEX ATTN CLAIMS [address] [facility] [address] MEDEX self ZEENAT NICHOLS [id number]
--- OUTSIDE RECORDS SUMMARY | 2022-08-26 10:33 | XMS_ITS ---
Author Name Rodrigo Serna Address [address] [place] [phone] Organization Rodrigo Serna DO [facility] Address [address] [place] [phone] Care Team Providers Care Centralized Traffic Control Operator Name Role Phone Rodrigo Serna [facility] [phone] PROBLEMS Type Condition ICD9-CM Code LSC23-EH Code Onset Dates Condition Status SNOMED Code Problem Irritable bowel syndrome without diarrhea K58.9 Active 87222877 Problem Subacute thyroiditis E06.1 Active 66014165 ALLERGIES Substance Reaction Event Type Date Status Sulfamethoxazole-TMP DS rash, pruritis, diarrhea Drug Phil rgy Jul, Active ENCOUNTERS Encounter Location Date Diagnosis Rodrigo Serna DO [address] [id number] August, Rodrigo Serna DO [address] [id number] Jul, Right lower quadrant abdominal pain R10.31 and Ductal carcinoma in situ (DCIS) of left breast D05.12 Rodrigo Serna DO [address] [id number] Jul, Rodrigo Serna DO [address] [id number] Jun, Rodrigo Serna DO [address] [id number] Jun, Rodrigo Serna DO [address] [id number] Jun, Right upper quadrant abdominal pain R10.11 ; Right lower quadrant abdominal pain R10.31 and Ductal carcinoma in situ (DCIS) of left breast D05.12 Rodrigo Serna DO, [address] [id number] 13 May, 2022 Rodrigo Serna DO, [address] [id number] May, Rodrigo Serna DO, [address] [id number] Apr, Rodrigo Serna DO, [address] [id number] Apr, Rodrigo Serna DO, [address] [id number] Apr, Rodrigo Serna DO, [address] [id number] Apr, Rodrigo Serna DO, [address] [id number] Feb, Rodrigo Serna DO, [address] [id number] Feb, Rodrigo Serna DO, [address] [id number] Nov, Subacute thyroiditis E06.1 Rodrigo Serna DO, [address] [id number] Nov, Neck pain on left side M54.2 and Neck pain on right side M54.2 Rodrigo Serna DO, [address] [id number] Nov, Rodrigo Serna DO, [address] [id number] Oct, Rodrigo Serna DO, [address] [id number] Sep, Rodrigo Serna DO, [address] [id number] Jun, Rodrigo Serna DO, [address] [id number] Jun, Rodrigo Serna DO, [address] [id number] Jun, Rodrigo Serna DO, [address] [id number] Jun, Rodrigo Serna DO, [address] [id number] Feb, Rodrigo Serna DO, [address], [place] [id number] Jan, Rodrigo Serna DO, [facility] [address], [place] [id number] Dec, Rodrigo Serna DO, [facility] [address], [place] [id number] Dec, Encounter for general adult medical examination without abnormal findings Z00.00 Rodrigo Serna DO, [facility] [address], [place] [id number] Jun, Rodrigo Serna DO, [facility] [address], [place] [id number] May, Irritable bowel syndrome without diarrhea K58.9 IMMUNIZATIONS Vaccine Route Administration Date Status Influenza High Dose Unknown Jan 16, 2017 Administ ered Influenza High Dose Unknown Jan 27, 2018 Administ ered Flu-aIIV4 Unknown Dec 25, 2021 Administered COVID-19 Pfizer Bivalent Unknown July 29, 2022 A dministered Influenza Quad Unknown Jan 04, 2019 Administered COVID-19 Pfizer BioNTech Unknown June 04, 2020 A dministered COVID-19 Pfizer BioNTech Unknown July 05, 2021 A dministered PCV 13 Unknown July 08, 2016 Administered Zoster Vaccine Unknown June 13, 2015 Administere d COVID-19 Pfizer BioNTech Unknown June 25, 2020 A dministered COVID-19 Pfizer BioNTech Unknown Dec 26, 2020 Ad ministered Influnza High Dose Quad Unknown Dec 15, 2019 Adm inistered Influenza Quad Unknown Feb 02, 2016 Administered Flu-aIIV4 Unknown Dec 26, 2020 Administered COVID-19 Pfizer Bivalent Unknown Dec 08, 2021 Ad ministered TDaP Unknown June 07, 2016 Administered SOCIAL HISTORY Qualifiers Date Never Smoker REASON FOR REFERRAL FUNCTIONAL STATUS PLAN OF CARE Activity Details VITAL SIGNS Weight 145 lbs 2022-07-30 Weight 148 lbs 2022-06-02 Weight 136 lbs 2020-12-05 Weight 136 lbs 2020-05-28 Height 65 in 2022-07-30 Height 65 in 2022-06-02 Height 65 in 2020-12-10 Height 65 in 2020-12-05 Height 65 in 2020-05-28 BMI 24.13 kg/m2 2022-07-30 BMI 24.63 kg/m2 2022-06-02 BMI 22.63 kg/m2 2020-12-05 BMI 22.63 kg/m2 2020-05-28 Heart Rate 61 /min 2020-12-10 Blood pressure systolic 112 mm Hg Blood pressure diastolic 64 mm Hg 2022-06 MEDICATIONS Medication Instructions Dosage Frequency Start Date End Date Duration Status Anastrozole 1 MG Orally Once a day 1 tablet 24h Active Calcium 600 + D 600-200 MG-UNIT Orally Once a day 1 tablet with a meal 24h Active LORazepam 1 MG Orally Once a day 1 tablet at bedtime as needed 24h Jun, Active Meloxicam 15 MG Orally Once a day 1 tablet with food 24h Jul, 30 day(s) Active Multivitamin - Orally Once a day 1 tablet 24h Active Vitamin D (Cholecalciferol ) 25 MCG (1000 UT) Orally Once a day 1 capsule 24h Active PROCEDURES Procedure Date Ordered Result Body Site TOBACCO NON-USER May 28, 2020 COLORECTAL CA SCREEN DOC REV Dec 05, 2020 DOC MEDS VERIFIED W/PT OR RE May 28, 2020 BMI<30 AND >=22 CALC & DOCU May 28, 2020 Scrn cole perf rslts doc Dec 05, 2020 PNEUMOC IMM ORDER/ADMIN Dec 05, 2020 PRES/ABSN URINE INCON ASSESS May 28, 2020 TOBACCO NON-USER Dec 05, 2020 ANNUAL WELLNESS VST; PPS SUBSQT VST Dec 05, 2020 DOC MEDS VERIFIED W/PT OR RE Dec 05, 2020 BMI<30 AND >=22 CALC & DOCU Dec 05, 2020 RESULTS Name Result Date Reference Range MAMMOGRAM, SCREENING Liver Panel 2022-06-18 Bilirubin Total 0.5 0.0-1.0 Bilirubin Direct < 0.2 0.0-0.5 Aspartate Amino Transferase 61 5-31 Alanine Aminotransferase 65 0-3 1 Total Protein 6.1 6.5-8.0 Albumin Level 4.0 3.5-5.0 Alkaline Phosphatase 69 39-117 Complete Blood Count Auto Diff 2022-06-02 White Blood Count 6.3 4.8-10.8 Red Blood Count 4.40 4.20-5.50 Hemoglobin 13.6 12.0-16.0 Hematocrit 41.1 37.0-47.0 Mean Corpuscular Volume 93.4 80.0 -98.0 Mean Corpuscular Hemoglobin 30.9 27.0-33.0 Mean Corpuscular HGB Conc 33.1 31 .0-35.0 Red Cell Distribution Width 12.4 11.0-16.0 Platelet Count 226 160-400 Mean Platelet Volume 10.3 9.4-12. 3 Neutrophils Percent Auto 64.4 45- 73 Imm Gran Pct Auto 0.3 0.0-0.4 Lymphocytes Percent Auto 24.3 20- 40 Monocytes Percent Auto 8.3 2-11 Eosinophils Percent Auto 1.9 0-4 Basophils Percent Auto 0.8 0-2 NRBC Pct Auto 0.0 0.0-0.2 Neutrophils Absolute Auto 4.1 2. 0-8.3 Imm Gran Abs Auto 0.02 0.00-0.03 Lymphocytes Absolute Auto 1.5 1. 2-4.9 Monocytes Absolute Auto 0.5 0.1- 1.2 Eosinophils Absolute Auto 0.1 0. 0-0.4 Basophils Absolute Auto 0.1 0.0- 0.2 NRBC Abs Auto 0.000 0.0-0.012 Urinalysis 2022-06-02 Color Urine Yellow Appearance Urine Clear PH 7.0 5.0-9.0 Glucose Urine UA Negative Negative Urine Blood Negative Negative Specific Auberry - Urine <= 1.005 1.0 05-1.025 Urine Protein Negative Neg-Trace Urine Ketones Negative Negative Nitrite Urine Negative Negative Leukocyte Esterase Urine Negative Neg ative Comprehensive Met. Panel 2022-06-02 Sodium 142 135-145 Potassium 4.6 3.3-5.1 Chloride 105 96-108 Carbon Dioxide 29 22-29 Anion Gap 13 12-20 Blood Urea Nitrogen 19 9-16 Creatinine 0.77 0.5-1.4 Estimated Glomerular Filt Rate >60 Glucose Random 73 60-115 Calcium 9.6 8.4-10.2 Bilirubin Total 0.5 0.0-1.0 Aspartate Amino Transferase 36 5-31 Alanine Aminotransferase 47 0-3 1 Total Protein 6.6 6.5-8.0 Albumin Level 4.3 3.5-5.0 Alkaline Phosphatase 71 39-117 C Reactive Protein 2022-06-02 C Reactive Protein 0.24 < or = 0. 50 XR abdomen w decubitus 2022-06-02 Free T4 (Free Thyroxine) 2022-02-10 Free T4 (Free Thyroxine) 0.93 0.7 1-1.85 Thyroid Stimulating Hormone 2022-02-10 Thyroid Stimulating Hormone 1.60 0.32-4.0 Free T4 (Free Thyroxine) 2022-01-04 Free T4 (Free Thyroxine) 0.96 0.7 1-1.85 Thyroid Stimulating Hormone 2022-01-04 Thyroid Stimulating Hormone 0.06 0.32-4.0 Triiodothyronine T3 Free 2022-01-04 Triiodothyronine T3 Free 2.9 2.3 -4.2 Free T4 (Free Thyroxine) 2021-12-02 Free T4 (Free Thyroxine) 1.75 0.7 1-1.85 Thyroid Stimulating Hormone 2021-12-02 Thyroid Stimulating Hormone < 0.01 0.32-4.0 Triiodothyronine T3 Free 2021-12-02 Triiodothyronine T3 Free 6.3 2.3 -4.2 Complete Blood Count Auto Diff 2021-11-16 White Blood Count 6.1 4.8-10.8 Red Blood Count 4.14 4.20-5.50 Hemoglobin 12.6 12.0-16.0 Hematocrit 39.1 37.0-47.0 Mean Corpuscular Volume 94.4 80.0 -98.0 Mean Corpuscular Hemoglobin 30.4 27.0-33.0 Mean Corpuscular HGB Conc 32.2 31 .0-35.0 Red Cell Distribution Width 12.1 11.0-16.0 Platelet Count 261 160-400 Mean Platelet Volume 10.7 9.4-12. 3 Neutrophils Percent Auto 69.7 45- 73 Imm Gran Pct Auto 0.3 0.0-0.4 Lymphocytes Percent Auto 18.3 20- 40 Monocytes Percent Auto 10.3 2-11 Eosinophils Percent Auto 1.1 0-4 Basophils Percent Auto 0.3 0-2 NRBC Pct Auto 0.0 0.0-0.2 Neutrophils Absolute Auto 4.3 2. 0-8.3 Imm Gran Abs Auto 0.02 0.00-0.03 Lymphocytes Absolute Auto 1.1 1. 2-4.9 Monocytes Absolute Auto 0.6 0.1- 1.2 Eosinophils Absolute Auto 0.1 0. 0-0.4 Basophils Absolute Auto 0.0 0.0- 0.2 NRBC Abs Auto 0.000 0.0-0.012 Erythrocyte Sedimentation Rate 2021-11-16 Erythrocyte Sedimentation Rate 16 0-20 C Reactive Protein 2021-11-16 C Reactive Protein 1.78 < or = 0. 50 Thyroid Stimulating Hormone 2021-11-16 Thyroid Stimulating Hormone < 0.01 0.32-4.0 Triiodothyronine T3 Free 2021-11-16 Triiodothyronine T3 Free 5.8 2.3 -4.2 Free T4 (Free Thyroxine) 2021-11-16 Free T4 (Free Thyroxine) 1.73 0.7 1-1.85 Pathology 2021-06-12 MM tomosynthesis diagnostic LT 2021-06-04 Pathology 2021-02-16 Complete Blood Count Auto Diff 2020-12-17 White Blood Count 4.8 4.8-10.8 Red Blood Count 4.07 4.20-5.50 Hemoglobin 12.8 12.0-16.0 Hematocrit 38.5 37-47 Mean Corpuscular Volume 94.6 80-9 8 Mean Corpuscular Hemoglobin 31.4 27.0-33.0 Mean Corpuscular HGB Conc 33.2 31 .0-35.0 Red Cell Distribution Width 12.5 11.0-16.0 Platelet Count 216 160-400 Mean Platelet Volume 11.4 9.4-12. 3 Neutrophils Percent Auto 58.0 45- 73 Imm Gran Pct Auto 0.2 0.0-0.4 Lymphocytes Percent Auto 31.0 20- 40 Monocytes Percent Auto 7.3 2-11 Eosinophils Percent Auto 2.9 0-4 Basophils Percent Auto 0.6 0-2 NRBC Pct Auto 0.0 0.0-0.2 Neutrophils Absolute Auto 2.8 2. 0-8.3 Imm Gran Abs Auto 0.01 0.00-0.03 Lymphocytes Absolute Auto 1.5 1. 2-4.9 Monocytes Absolute Auto 0.4 0.1- 1.2 Eosinophils Absolute Auto 0.1 0. 0-0.4 Basophils Absolute Auto 0.0 0.0- 0.2 NRBC Abs Auto 0.000 0.0-0.012 Urinalysis and Microscopic 2020-12-17 Color Urine YELLOW Appearance Urine CLEAR PH 6.5 5.0-8.0 Glucose Urine UA NEG NEG Urine Blood NEG NEG Specific Auberry - Urine 1.015 1.0 05-1.025 Urine Protein NEG NEG-TRACE Urine Ketones NEG NEG Nitrite Urine NEG NEG Leukocyte Esterase Urine TRACE NEG RBC Urine 0 0 WBC Urine 0-2 0-4 Squamous Epithelial Cell Urine TRACE Bacteria Urine NONE Comprehensive [place]. Panel Fast 2020-12-17 Sodium 142 135-145 Potassium 4.5 3.3-5.1 Chloride 109 96-108 Carbon Dioxide 27 22-29 Anion Gap 11 12-20 Blood Urea Nitrogen 18 9-16 Creatinine 0.77 0.5-1.4 Estimated Glomerular Filt Rate >60 Glucose Fasting 97 60-99 Calcium 9.1 8.4-10.2 Bilirubin Total 0.8 0.0-1.0 Aspartate Amino Transferase 21 5-31 Alanine Aminotransferase 15 0-3 1 Total Protein 6.1 6.5-8.0 Albumin Level 4.1 3.5-5.0 Alkaline Phosphatase 61 39-117 Lipid Panel 2020-12-17 Triglycerides 50 Cholesterol 191 LDL Cholesterol Calculated 116 HDL Cholesterol 65 Vitamin D 25-OH Total 2020-12-17 Vitamin D 25-OH Total 51.4 >30 Thyroid Stimulating Hormone 2020-12-17 Thyroid Stimulating Hormone 0.65 0.32-4.0 MM added views LT 2020-10-27 MM tomosynthesis screening BI 2020-10-21 MAMMOGRAM, SCREENING REASON FOR VISIT 2 month f/u, Update, right sided abdominal pain, 1 month f/u, Postpone follow-up appointment?, Re:RE:Referral for OBGYN consult, Referral for OBGYN consult, abdominal pain, Update, Update, Message, RE:Re:RE:Update and question, Re:RE:Update and question, Update and question, Thank you, Needs call back from office, ? swollen lymph nodes, Needs call back from MD, Question of thyroid problem, Message, Message, Message, Update, Medication to help me sleep, Needs call back from MD, FYI, Update, Right shoulder and lower back, FYI only, Physical, annual visit, Message, New Patient, new patient Insurance Providers Health Insurance Type Health Plan Insurance Address Health Plan Insurance Phone Health Plan Insurance Name Health Plan Coverage Dates Member ID Patient Relationship to Subscriber Patient Address Patient Phone Patient Name Patient Date of Subscriber ID Subscriber Name Subscriber Date of Group No MEDICARE [address] [place] [address] MEDICARE self Jasmina Aponte [id number] MEDEX [address] [facility] [address] MEDEX self Jasmina Aponte [id number]
[2022-08-26] MEDS: Lactated Ringers 1,000 ML 100 ML IVCONT (10:59)
--- NOTE | 2022-08-26 11:23 | MHC.SHP ---
Pre-Procedural Eval Section A Date of Service: 08/26/22 The patient is an INPATIENT: No Changes since office visit: Yes Patient answered all questions The History & Physical has been completed within 30 days and I have reviewed it.: No Section B Chief Complaint: Unspecified abdominal pain,Mononeuropathy, Details of Present Illness: As above Relevant Family History (Specify if Yes): No Relevant Social History: None Present Medications: see Short Stay Collaborative assessment Medical History: No relevant PMH History of Previous Operations: No relevant previous surgery Allergies: Allergies Allergy/AdvReac Type Severity Reaction Status Date / Time sulfamethoxazole Allergy Intermediate Diarrhea Verified 08/26/22 10:47 [From Bactrim] trimethoprim [From Bactrim] Allergy Intermediate Diarrhea Verified 08/26/22 10:47 ibuprofen AdvReac Unknown Gastrointestinal Verified 08/26/22 10:47 Upset Review of Systems Sugical H&P ROS: Negative: Constitution, Cardiovascular, Respiratory, Neurological, Psychiatric, Hem-Onc, Allergic/Immunologic, Gastrointestinal, Genitourinary, Musculoskeletal, Integumentary, Endocrine and Eyes/Ears/Nose/Throat Exam Surgical H&P Exam: Normal: HEENT, Normal: Heart, Normal: Lungs, Normal: Extremities, Normal: Abdomen, Normal: Skin and Normal: Neurological Plan Diagnosis/Plan: Unchanged patient reported her pain progressed further along the ilioinguinal and hy hypogastric nerves on the right now she feels electric shock-like sensation in the projection of the iliac crest and anterior superior iliac spine. I offered patient option to continue as we planned with TAP block, alternatively offered the patient to try diagnostic T11-T10 epidural steroid injection in the attempt to alleviate her pain. If this would be significant success I would offer her [employer] spinal cord stimulator placed in the projection of T5-T6 posterior epidural space. Patient chose to go for TAP block today and reconvene later on with the results of the injection. Time Spent With Patient Time: Total time managing care of this patient today __15__ minutes.
--- NOTE | 2022-08-26 12:17 | P.BOP_ITS ---
Brief Operative Note Date of Service: 08/26/22 Procedure: Transversus abdominis plane block on the right Surgeon: Stefano Yanez MD Anesthesia: MAC Was an Nuclear Engineering Technician used for this Procedure?: No Estimated blood loss (mL): 0 Pathology: none sent Condition: stable Disposition: PACU
--- NOTE | 2022-08-26 12:19 | P.OP_ITS ---
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 She was offered TAP block on the right to diagnose and treat her condition. Informed consent was thoroughly explained to the patient. Patient reported that her pain now it is more more widespread and not only on the abdominal wall but also in the flank with burning and pins and needle sensation in the projection of ASIS and above. Risks and benefits including failure to alleviate pain so widespread were carefully explained to the patient. The patient was taken to the operating room she was positioned supine on operating table. [employer] monitors were applied and patient was moderately sedated. Time-out was performed delineating name and date of of the patient site and side of the procedure risk of fire and need of antibiotics which is none. Her entire abdomen was prepped with ChloraPrep and draped with self-adhesive sterile utility towels. Sterilely draped ultrasound probe was brought over the delineated field and positioned in right-sided from the umbilicus. Sliding ultrasound probe ipsilateral to the right, picture of transverse sections of the external oblique muscle, internal oblique muscle, as well as transversus abdominus muscle were delineated on the screen. The fascia between the transversus abdominis and internal oblique muscle was chosen as the target of the injection. Echo stim positive needle was injected extra anatomically in in- plain fashion. The needle was observed live advancing to the target on the screen. When tip of the needle was positioned between the transversus abdominis and internal oblique muscle injection of 1 cc of normal saline was performed. The expansion of the TAP plain was observed, after that 20 cc of Ropivacaine mixed with Kenalog 40 mg was injected into the plane. Upon completion of the injection needle was withdrawn , sterile Band-Aid was applied.
[2022-08-26 12:20] VITALS: BP 112/56; PULSE 58; RESP 16; TEMP 36.3; O2SAT 96
[2022-08-26 12:45] VITALS: BP 102/52; PULSE 54; RESP 16; TEMP 36.1; O2SAT 99
--- NOTE | 2022-08-26 12:57 | PC.NURSE ---
see preop nursing record for VS
== END 2022-08-26 15:14 | disposition home or self-care (01) ==
PROVIDERS: PCP Internal Medicine; Visit Provider Anesthesiology
PROC: (CPT 64486; principal; 2022-08-26 11:30)
DX: R10.9 Unspecified abdominal pain (principal); G57.81 Other specified mononeuropathies of right lower limb; E05.90 Thyrotoxicosis, unspecified without thyrotoxic crisis or storm; M19.90 Unspecified osteoarthritis, unspecified site; D05.12 Intraductal carcinoma in situ of left breast; Z79.811 Long term (current) use of aromatase inhibitors; Z79.899 Other long term (current) drug therapy; Z88.2 Allergy status to sulfonamides; Z88.8 Allergy status to other drugs, medicaments and biological substances
CPT/HCPCS: 64486; J1100; J2250; J2795; J3301; Q9965; Q9967

== ENCOUNTER → 2022-09-01 13:36 | Outpatient (BNVA) | payer MEDICARE, SELFPAY | PROVIDERS: PCP Internal Medicine; Visit Provider Anesthesiology | DX: G58.9 Mononeuropathy, unspecified (principal); R10.9 Unspecified abdominal pain | CPT/HCPCS: Q3014 ==

== ENCOUNTER 2022-09-03 14:30 | Outpatient (REF) | payer MEDICARE, SELFPAY ==
[2022-09-03 17:39] LABS: Alanine Aminotransferase 16 U/L (0-31); Albumin Level 4.2 g/dL (3.5-5.0); Alkaline Phosphatase 57 U/L (39-117); Aspartate Amino Transferase 18 U/L (5-31); Bilirubin Direct 0.2 mg/dL (0.0-0.5); Bilirubin Total 0.6 mg/dL (0.0-1.0); Total Protein 6.3 g/dL (6.5-8.0)
== END 2022-09-03 14:31 | disposition home or self-care (01) ==
LOC: HO.HMGCLDS 14:30
PROVIDERS: PCP Internal Medicine; Visit Provider Internal Medicine
DX: R79.89 Other specified abnormal findings of blood chemistry (principal)
CPT/HCPCS: 36415; 80076

== ENCOUNTER 2022-09-03 20:17 | Observation (INO) | payer MEDICARE, SELFPAY ==
--- NOTE | ~2022-09-03 | CT_ITS ---
EXAMINATION: CT HEAD WITHOUT CONTRAST CT ANGIOGRAM NECK AND HEAD CLINICAL INFORMATION: Headache, loss of the word finding, blurry vision, dysarthria COMPARISON: None. TECHNIQUE: Initial noncontrast head CT was performed. Test bolus sequences followed by intravenous administration 70 mL of Omnipaque 350. Helical imaging was performed in the axial plane from the thoracic inlet to the skull vertex. Delayed postcontrast imaging of the head was also performed. The data was processed at the distribution engineering technologist's workstation for generation of MIP sequences. Angled MIPs and volume rendered reformatted images were also generated at an offline 3D workstation. Stenoses are assessed in accordance with NASCET criteria unless otherwise indicated. DOSE LOWERING TECHNIQUES: This CT examination was performed using dose optimization techniques as appropriate, variously including the following: - Automated exposure control - Adjustment of mA and/or kV according to patient size (this includes techniques or standardized protocols for targeted exams were dose is matched to indication/reason for exam; i.e. extremities or head) - Use of iterative reconstruction technique DLP: 2345 mGy-cm FINDINGS: Neck CTA: Normal appearance of the visualized great vessels off the aortic arch. Both vertebral arteries are widely patent throughout their extracranial cervical course. Normal appearance of the common and internal carotid arteries without focal stenosis. Brain CTA: Normal appearance of the intradural vertebral arteries. Normal appearance of the basilar and superior cerebellar arteries. Normally opacified posterior cerebral arteries bilaterally. Normal appearance of the intradural internal carotid arteries without focal stenosis. Normal appearance of the anterior cerebral and middle cerebral arteries without focal occlusion or stenosis. Normal anterior communicating artery. Normal arborization of the middle cerebral arteries. CT Head: No intracranial mass, hemorrhage, extra-axial collection, or midline shift. The junior-white matter differentiation is preserved. There is mild periventricular white matter hypoattenuation consistent with chronic small vessel ischemic disease. No pathologic intra-axial enhancement or regional oligemia. No hydrocephalus. The mastoid air cells and paranasal sinuses remain well aerated. CT Neck: The thyroid gland and remaining cervical soft tissues are normal in appearance. There is disc space narrowing and endplate osteophyte formation in the lower cervical spine. Upper Chest: No abnormalities in the visualized lung apices or upper mediastinum. CT/CT angio head neck IMPRESSION: 1. No acute intracranial findings. Mild chronic small vessel ischemic disease. 2. No hemodynamically significant stenosis in the major arteries of the neck. No large vessel occlusion or significant stenosis in the intracranial circulation.
--- NOTE | ~2022-09-03 | CT_ITS ---
EXAMINATION: CT HEAD WITHOUT CONTRAST CT ANGIOGRAM NECK AND HEAD CLINICAL INFORMATION: Headache, loss of the word finding, blurry vision, dysarthria COMPARISON: None. TECHNIQUE: Initial noncontrast head CT was performed. Test bolus sequences followed by intravenous administration 70 mL of Omnipaque 350. Helical imaging was performed in the axial plane from the thoracic inlet to the skull vertex. Delayed postcontrast imaging of the head was also performed. The data was processed at the cytometry technologist's workstation for generation of MIP sequences. Angled MIPs and volume rendered reformatted images were also generated at an offline 3D workstation. Stenoses are assessed in accordance with NASCET criteria unless otherwise indicated. DOSE LOWERING TECHNIQUES: This CT examination was performed using dose optimization techniques as appropriate, variously including the following: - Automated exposure control - Adjustment of mA and/or kV according to patient size (this includes techniques or standardized protocols for targeted exams were dose is matched to indication/reason for exam; i.e. extremities or head) - Use of iterative reconstruction technique DLP: 2345 mGy-cm FINDINGS: Neck CTA: Normal appearance of the visualized great vessels off the aortic arch. Both vertebral arteries are widely patent throughout their extracranial cervical course. Normal appearance of the common and internal carotid arteries without focal stenosis. Brain CTA: Normal appearance of the intradural vertebral arteries. Normal appearance of the basilar and superior cerebellar arteries. Normally opacified posterior cerebral arteries bilaterally. Normal appearance of the intradural internal carotid arteries without focal stenosis. Normal appearance of the anterior cerebral and middle cerebral arteries without focal occlusion or stenosis. Normal anterior communicating artery. Normal arborization of the middle cerebral arteries. CT Head: No intracranial mass, hemorrhage, extra-axial collection, or midline shift. The junior-white matter differentiation is preserved. There is mild periventricular white matter hypoattenuation consistent with chronic small vessel ischemic disease. No pathologic intra-axial enhancement or regional oligemia. No hydrocephalus. The mastoid air cells and paranasal sinuses remain well aerated. CT Neck: The thyroid gland and remaining cervical soft tissues are normal in appearance. There is disc space narrowing and endplate osteophyte formation in the lower cervical spine. Upper Chest: No abnormalities in the visualized lung apices or upper mediastinum. CT/CT head/brain wo IV con IMPRESSION: 1. No acute intracranial findings. Mild chronic small vessel ischemic disease. 2. No hemodynamically significant stenosis in the major arteries of the neck. No large vessel occlusion or significant stenosis in the intracranial circulation.
--- NOTE | 2022-09-03 20:34 | ED.GENADULT ---
HPI - General Adult General Chief complaint: General Medical Stated complaint: TIA? Time Seen by Provider: 09/03/22 20:45 Source: patient Mode of arrival: ambulatory Limitations: no limitations History of Present Illness HPI narrative: Patient comes to the emergency room complaining of a sudden onset of visual changes from the right eye which resolved within 5 minutes, accompanied by a dull head pressure. Patient states that she was reading noticed that she had trouble seeing out of her right eye, states that it felt like a light was shining in her right eye. Within a few minutes, patient states that she had an episode of not being able to write words or find words. This episode lasted for about 5 minutes. Patient states that she was very frustrated trying to speak, she knew what she wanted to say but the words would not come out. These 2 episodes happen within 45 minutes. When patient arrived to the emergency room, patient was asymptomatic other than feeling tired/fatigue. Patient states that she does not have history of headaches and rarely gets any headaches. Related Data Home Medications Medication Instructions Recorded Confirmed calcium carb-ergocalciferol (vit 1 tab PO DAILY 09/15/20 09/03/22 D2) 600 mg calcium-200 unit tablet multivitamin 1 tab PO DAILY 09/15/20 09/03/22 anastrozole 1 mg tablet 1 mg PO DAILY 11/25/21 09/03/22 cholecalciferol (vitamin D3) 25 25 mcg PO DAILY 11/25/21 09/03/22 mcg (1,000 unit) capsule lorazepam 1 mg tablet 1 mg PO BEDTIME PRN Insomnia 02/19/22 09/03/22 Allergies Allergy/AdvReac Type Severity Reaction Status Date / Time sulfamethoxazole Allergy Intermediate Diarrhea Verified 09/01/22 13:37 [From Bactrim] trimethoprim [From Bactrim] Allergy Intermediate Diarrhea Verified 09/01/22 13:37 ibuprofen AdvReac Unknown Gastrointestinal Verified 09/01/22 13:37 Upset Review of Systems Review of Systems: Constitutional : No Weight loss, No Fever, No Chills, No Night Sweats, No Fatigue, No Malaise ENT/Mouth : No Hearing loss, No Ear Pain, No Nasal Congestion, No Sinus Pain, No Hoarseness, No sore throat, No Rhinorrhea, No Swallowing Difficulty Eyes: No Eye Pain, No Swelling, No Redness, No Foreign Body, No Discharge, No Vision Changes Cardiovascular : No Chest Pain, No SOB, No Dyspnea on Exertion, No Orthopnea, No Edema, No Palpitations Respiratory : No Cough, No Sputum, No Wheezing, No Smoke Exposure, No Dyspnea Gastrointestinal : No Nausea, No Vomiting, No Diarrhea, No Constipation, No abdominal Pain, No Hematochezia, No Melena Genitourinary : no irregular bleeding, No Dysuria, No Urinary Frequency, No Hematuria, No Urinary Incontinence, No Urgency, No Flank Pain, No Urinary Flow Changes, No Hesitancy Musculoskeletal : No joint pain, No Myalgias, No Joint Swelling Skin : No Skin Lesions, No rash Neuro : No Weakness, No Numbness, No Paresthesias, No Loss of Consciousness, No Dizziness, complaining of an episode of dysarthria, unable to find words or write words. Episode of head pressure that lasted for about 1 minute. Psych : No Anxiety/Panic, No Depression, No SI/HI/AH/VH, No Social Issues, Heme/Lymph: No Bruising, No Bleeding,No Lymphadenopathy Endocrine : No Polyuria, No Polydipsia, No Temperature Intolerance PMFSH Past Medical History Medical History Arthritis Back pain Ductal carcinoma of breast Hyperthyroidism No significant medical problems Surgical History H/O colonoscopy History of History of lumpectomy of left breast Family History Family History Mother Metastatic melanoma Social History Social History Household Members: Spouse Alcohol intake: current Alcohol intake frequency: a few times a week Patient Tobacco Use Status: Never used Tobacco Smoked in Last 30 Days: No Use of substances other than those prescribed or required for medical reasons: No Advance Directives: No Advance Directives Information Provided: Yes Sexual orientation: Straight/Heterosexual Gender identity: Female Physical Exam ED Vital Signs: Vital Signs - 24 hr 09/03/22 21:04 Temperature 98.7 F Pulse Rate 64 Respiratory Rate 18 Blood Pressure 145/75 H Pulse Oximetry 97 Oxygen Delivery Method Room Air BMI result Body Mass Index 24.0 Const Other: Appearance: Alert. Oriented X3. No acute distress. Eyes: Pupils equal, round and reactive to light. ENT: Pharynx normal. Neck: Normal inspection. Neck supple. No lymph nodes noted. No crepitus CVS: Normal heart rate and rhythm. Pulses normal. Normal S1 and S2 Respiratory: No respiratory distress. Breath sounds normal. No Wheezing. No rales Abdomen: Soft and nontender. No rigidity. No distention. Skin: Skin warm and dry. Normal skin color. Normal skin turgor. Extremities: No lower extremity edema. No Lacerations. No Rash Neuro: Oriented X 3. No motor deficit. No sensory deficit. Moving all extremities. No slurred speech. CN 2 through 12 grossly intact Psych: calm, cooperative, normal affect Course Course Course Narrative: RME performed by Blank Garcia PA-C. Patient is a 72 year old assigned female at presenting to the emergency department with a possible TIA. Patient had a 45 minute episode of not being able to word find and having right sided eye pain / throbbing. Patient had a headache during the episode and now feels fatigued. Labs and imaging ordered. Reevaluation(s) Reevaluation #1: -we will go ahead and obtain labs and CT and CTA of head and neck -discussed with the patient that her symptoms are concerning for a TIA, regardless of the labs and imaging results, I recommend admission for further evaluation. Medications Administered Discontinued Medications Generic Name Dose Route Start Last Admin Trade Name Freq PRN Reason Stop Dose Admin Iohexol 100 ml 09/03/22 22:43 09/03/22 22:43 Iohexol 350 Mg/Ml 100 Ml Infus..Btl IV 09/03/22 22:44 70 ml ONCE ONE Administration Medical Decision Making Medical Decision Making [facility] Narrative: -interpretation of CT scan of the head: No intracranial bleed. -patient remains asymptomatic -as mentioned above, patient likely had a TIA, patient being admitted, -I discussed the patient with Dr. Betts Admission/Observation Consideration of admission/observation: Escalation of care including admission/observation considered Consult Healthcare Provider Management of the patient was discussed with: Hospitalist Lab Data [facility] Lab Attestation statement: I reviewed the patient's lab results. 09/03/22 21:23 09/03/22 21:23 Labs: Lab Results 09/03/22 09/03/22 09/03/22 Range/Units 21:01 21:23 21:23 WBC 6.5 (4.8-10.8) X10*3/uL RBC 4.25 (4.20-5.50) X10*6/uL Hgb 13.3 (12.0-16.0) g/dl Hct 39.2 (37.0-47.0) % MCV 92.2 (80.0-98.0) fL MCH 31.3 (27.0-33.0) pg MCHC 33.9 (31.0-35.0) g/dl RDW 12.6 (11.0-16.0) % Plt Count 216 (160-400) X10*3/uL MPV 10.1 (9.4-12.3) fL Immature Gran % (Auto) 0.6 H (0.0-0.4) % Neut % (Auto) 69.4 (45-73) % Lymph % (Auto) 18.6 L (20-40) % [place] % (Auto) 9.9 (2-11) % Eos % (Auto) 0.9 (0-4) % Baso % (Auto) 0.6 (0-2) % Lymph # (Auto) 1.2 (1.2-4.9) X10*3/uL [place] # (Auto) 0.6 (0.1-1.2) X10*3/uL Eos # (Auto) 0.1 (0.0-0.4) X10*3/uL Baso # (Auto) 0.0 (0.0-0.2) X10*3/uL Abs Immat Gran (auto) 0.04 H (0.00-0.03) X10*3/uL Absolute Neuts (auto) 4.5 (2.0-8.3) x10*3/uL Absolute Nucleated RBC 0.000 (0.0-0.012) X10*3/uL Nucleated RBC % (auto) 0.0 (0.0-0.2) /100WBC ESR 2 (0-20) MM/HR Sodium (135-145) mmol/L Potassium (3.3-5.1) mmol/L Chloride (96-108) mmol/L Carbon Dioxide (22-29) mmol/L Anion Gap (12-20) BUN (9-16) mg/dL Creatinine (0.5-1.4) mg/dL Estim Creat Clear Calc Estimated GFR Random Glucose (60-115) mg/dL Calcium (8.4-10.2) mg/dL Magnesium (1.6-2.6) mg/dL Total Bilirubin (0.0-1.0) mg/dL AST (5-31) U/L ALT (0-31) U/L Alkaline Phosphatase (39-117) U/L C-Reactive Protein (< or = 0.50) mg/dL Total Protein (6.5-8.0) g/dL Albumin (3.5-5.0) g/dL Urine Color Yellow Urine Appearance Clear Urine pH 6.5 (5.0-9.0) Ur Specific Harrold 1.010 (1.005-1.025) Urine Protein Negative (Neg-Trace) mg/dL Urine Glucose (UA) Negative (Negative) mg/dL Urine Ketones Negative (Negative) mg/dL Urine Blood Negative (Negative) Urine Nitrite Negative (Negative) Ur Leukocyte Esterase Negative (Negative) 09/03/22 Range/Units 21:23 WBC (4.8-10.8) X10*3/uL RBC (4.20-5.50) X10*6/uL Hgb (12.0-16.0) g/dl Hct (37.0-47.0) % MCV (80.0-98.0) fL MCH (27.0-33.0) pg MCHC (31.0-35.0) g/dl RDW (11.0-16.0) % Plt Count (160-400) X10*3/uL MPV (9.4-12.3) fL Immature Gran % (Auto) (0.0-0.4) % Neut % (Auto) (45-73) % Lymph % (Auto) (20-40) % [place] % (Auto) (2-11) % Eos % (Auto) (0-4) % Baso % (Auto) (0-2) % Lymph # (Auto) (1.2-4.9) X10*3/uL [place] # (Auto) (0.1-1.2) X10*3/uL Eos # (Auto) (0.0-0.4) X10*3/uL Baso # (Auto) (0.0-0.2) X10*3/uL Abs Immat Gran (auto) (0.00-0.03) X10*3/uL Absolute Neuts (auto) (2.0-8.3) x10*3/uL Absolute Nucleated RBC (0.0-0.012) X10*3/uL Nucleated RBC % (auto) (0.0-0.2) /100WBC ESR (0-20) MM/HR Sodium 138 (135-145) mmol/L Potassium 4.1 (3.3-5.1) mmol/L Chloride 103 (96-108) mmol/L Carbon Dioxide 28 (22-29) mmol/L Anion Gap 11 L (12-20) BUN 21 H (9-16) mg/dL Creatinine 0.93 (0.5-1.4) mg/dL Estim Creat Clear Calc 47.2 Estimated GFR 59 Random Glucose 96 (60-115) mg/dL Calcium 9.6 (8.4-10.2) mg/dL Magnesium 2.0 (1.6-2.6) mg/dL Total Bilirubin 0.4 (0.0-1.0) mg/dL AST 19 (5-31) U/L ALT 18 (0-31) U/L Alkaline Phosphatase 62 (39-117) U/L C-Reactive Protein < 0.10 (< or = 0.50) mg/dL Total Protein 6.3 L (6.5-8.0) g/dL Albumin 4.3 (3.5-5.0) g/dL Urine Color Urine Appearance Urine pH (5.0-9.0) Ur Specific Harrold (1.005-1.025) Urine Protein (Neg-Trace) mg/dL Urine Glucose (UA) (Negative) mg/dL Urine Ketones (Negative) mg/dL Urine Blood (Negative) Urine Nitrite (Negative) Ur Leukocyte Esterase (Negative) Radiology Impression Discussion of test interpretation with radiology: I have reviewed the radiologist's reading. Radiologist Impression: FINDINGS: Neck CTA: Normal appearance of the visualized great vessels off the aortic arch. Both vertebral arteries are widely patent throughout their extracranial cervical course. Normal appearance of the common and internal carotid arteries without focal stenosis. Brain CTA: Normal appearance of the intradural vertebral arteries. Normal appearance of the basilar and superior cerebellar arteries. Normally opacified posterior cerebral arteries bilaterally. Normal appearance of the intradural internal carotid arteries without focal stenosis. Normal appearance of the anterior cerebral and middle cerebral arteries without focal occlusion or stenosis. Normal anterior communicating artery. Normal arborization of the middle cerebral arteries. CT Head: No intracranial mass, hemorrhage, extra-axial collection, or midline shift. The junior-white matter differentiation is preserved. There is mild periventricular white matter hypoattenuation consistent with chronic small vessel ischemic disease. No pathologic intra-axial enhancement or regional oligemia. No hydrocephalus. The mastoid air cells and paranasal sinuses remain well aerated. CT Neck: The thyroid gland and remaining cervical soft tissues are normal in appearance. There is disc space narrowing and endplate osteophyte formation in the lower cervical spine. Upper Chest: No abnormalities in the visualized lung apices or upper mediastinum. CT/CT angio head neck IMPRESSION: 1.? No acute intracranial findings. Mild chronic small vessel ischemic disease. 2.? No hemodynamically significant stenosis in the major arteries of the neck. No large vessel occlusion or significant stenosis in the intracranial circulation. ? Critical Care Time Critical Care Time Critical Care Time: Yes Total Critical Care Time: 60 Attestation: I have personally provided critical care time. Time includes review of lab data, radiology results, discussion with consultants, and monitoring for potential decompensation. Intervention performed as documented. Discharge Plan Discharge Clinical Impression: Brain TIA Patient Disposition: Admitted As Inpatient Prescriptions: No Action multivitamin Tablet 1 tab PO DAILY Calcium + Vitamin D 600 mg calcium- 200 unit Tablet 1 tab PO DAILY lorazepam 1 mg tablet 1 mg PO BEDTIME PRN (Reason: Insomnia) anastrozole 1 mg tablet 1 mg PO DAILY cholecalciferol (vitamin D3) 25 mcg (1,000 unit) capsule 25 mcg PO DAILY
[2022-09-03 20:37] VITALS: BMI 24.0
[2022-09-03 21:04] VITALS: BP 145/75; PULSE 64; RESP 18; TEMP 37.1; O2SAT 97
[2022-09-03 21:11] LABS: Appearance Urine Clear; Color Urine Yellow; Glucose Urine UA Negative (Negative); Leukocyte Esterase Urine Negative (Negative); Nitrite Urine Negative (Negative); PH 6.5 (5.0-9.0); Urine Blood Negative (Negative); Urine Ketones Negative (Negative); Urine Protein Negative (Neg-Trace)
--- OUTSIDE RECORDS SUMMARY | 2022-09-03 21:18 | XMS_ITS ---
Author Name Isa Rodrigo Address [address] [place] [address] Organization [facility] Address [address] [place] [address] Care Team Providers Care Mantel Craftsman Name Role Phone Rodrigo Moss [facility] [phone] PROBLEMS Type Condition ICD9-CM Code OOU08-GV Code Onset Dates Condition Status SNOMED Code Problem Encounter for screening for malignant neoplasm of colon Z12.11 Active 131188097 Problem History of adenomatous polyp of colon Z86.010 Active 955006424 Problem Nausea and vomiting, intractability of vomiting not specified, unspecified vomiting type R11.2 Active 70766484 Problem RLQ abdominal pain R10.31 Active 47835 4002 Problem Encounter for screening for malignant neoplasm of rectum Z12.12 Active 739825245 Problem Elevated liver function tests R79.89 Active 450027084 Problem Preprocedural examination Z01.818 Active 838771758935423 Problem Diarrhea, unspecified type R19.7 Active 11581859 Problem Irritable bowel syndrome with constipation K58.1 Active 607227721 Problem Diverticulosis of colon K57.30 Active 644923507 Problem Elevated liver enzymes R74.8 Active 646093605 ALLERGIES Substance Reaction Event Type Date Status Bactrim Unknown Drug Allergy Jun, Active ENCOUNTERS Encounter Location Date Diagnosis [facility] [address] [place], [place] Jun, Elevated liver function tests R79.89 [facility] [address] [place] [address] [place] 09 Jun, 2022 RLQ abdominal pain R10.31 and Elevated liver enzymes R74.8 [facility] [address] [facility] [place] Jun, [facility] [address] [place], [place] [id number] Sep, Colon cancer screening Z12.11 ; Other hemorrhoids K64.8 and Diverticulosis of colon K57.30 [facility] [address] [place] [address] [place] Jun, Irritable bowel syndrome with constipation K58.1 ; History of adenomatous polyp of colon Z86.010 ; Encounter for screening for malignant neoplasm of colon Z12.11 and Preprocedural examination Z01.818 [facility] [address] [place] [address] Jun, [facility] [address] [place] [address] Nov, Diarrhea, unspecified type R19.7 and Nausea and vomiting, intractability of vomiting not specified, unspecified vomiting type R11.2 [facility] [address] [place] [address] Apr, Encounter for screening for malignant neoplasm of colon Z12.11 [facility] [address] [place] [id number] Oct, Preprocedural examination Z01.818 ; History of adenomatous polyp of colon Z86.010 ; Encounter for screening for malignant neoplasm of colon Z12.11 and Encounter for screening for malignant neoplasm of rectum Z12.12 [facility] [address] [place], [place] [id number] Apr, [facility] [address] [place], [place] [id number] Jan, [facility] [address] [place], [place] [id number] Jun, [facility] [address] [place], [place] [id number] May, [facility] [address] [place], [place] [id number] Apr, [facility] [address] [place] [id number] Mar, [facility] [address] [place], [place] [id number] Jan, [facility] [address] [place], [place] [id number] August, IMMUNIZATIONS Vaccine Route Administration Date Status [...] Name Subscriber Date of Group No MEDICARE OF [place] [address] [facility] [address] MEDICARE [facility] ZEENAT NICHOLS [id number] MEDEX ATTN CLAIMS [address] [facility] [address] MEDEX self ZEENAT NICHOLS [id number] [facility] [address] [facility] [address] [facility] self ZEENAT NICHOLS [id number]
--- NOTE | 2022-09-03 21:21 | PHA.MEDREC ---
Pharmacy Consult ? Medication Reconciliation Medication list obtain from medical record from [facility] Discharge Surgical Packet Home Medication List from 08/26/22 . Pharmacy has completed the medication reconciliation.
[2022-09-03 21:31] LABS: MANUAL DIFF FLAG NO
[2022-09-03 21:32] LABS: Basophils Percent Auto 0.6 % (0-2); Eosinophils Absolute Auto 0.1 X10*3/uL (0.0-0.4); Eosinophils Percent Auto 0.9 % (0-4); Hematocrit 39.2 % (37.0-47.0); Hemoglobin 13.3 g/dl (12.0-16.0); Imm Gran Abs Auto 0.04 X10*3/uL (0.00-0.03); Imm Gran Pct Auto 0.6 % (0.0-0.4); Lymphocytes Absolute Auto 1.2 X10*3/uL (1.2-4.9); Lymphocytes Percent Auto 18.6 % (20-40); Mean Corpuscular HGB Conc 33.9 g/dl (31.0-35.0); Mean Corpuscular Hemoglobin 31.3 pg (27.0-33.0); Mean Corpuscular Volume 92.2 fL (80.0-98.0); Mean Platelet Volume 10.1 fL (9.4-12.3); Monocytes Absolute Auto 0.6 X10*3/uL (0.1-1.2); Monocytes Percent Auto 9.9 % (2-11); Neutrophils Absolute Auto 4.5 x10*3/uL (2.0-8.3); Neutrophils Percent Auto 69.4 % (45-73); Platelet Count 216 X10*3/uL (160-400); Red Blood Count 4.25 X10*6/uL (4.20-5.50); Red Cell Distribution Width 12.6 % (11.0-16.0); White Blood Count 6.5 X10*3/uL (4.8-10.8)
[2022-09-03 22:00] LABS: Alanine Aminotransferase 18 U/L (0-31); Albumin Level 4.3 g/dL (3.5-5.0); Alkaline Phosphatase 62 U/L (39-117); Anion Gap 11 (12-20); Aspartate Amino Transferase 19 U/L (5-31); Bilirubin Total 0.4 mg/dL (0.0-1.0); Blood Urea Nitrogen 21 mg/dL (9-16); C Reactive Protein < 0.10 mg/dL (< or = 0.50); Calcium 9.6 mg/dL (8.4-10.2); Carbon Dioxide 28 mmol/L (22-29); Chloride 103 mmol/L (96-108); Creatinine Clr Calc Pharmacy 47.2; Estimated Glomerular Filt Rate 59; Glucose Random 96 mg/dL (60-115); Potassium 4.1 mmol/L (3.3-5.1); Sodium 138 mmol/L (135-145); Total Protein 6.3 g/dL (6.5-8.0)
[2022-09-03 22:27] LABS: Erythrocyte Sedimentation Rate 2 MM/HR (0-20)
[2022-09-03] MEDS: iohexoL 350 MG/ML 100 ML INFUS..BTL IV (22:43)
--- NOTE | 2022-09-03 23:31 | ECG_ITS ---
Test Reason : TIA Blood Pressure : / mmHG Vent. Rate : 056 BPM Atrial Rate : 056 BPM P-R Int : 144 ms QRS Dur : 082 ms QT Int : 442 ms P-R-T Axes : 064 021 029 degrees QTc Int : 426 ms Sinus bradycardia Otherwise normal ECG No previous ECGs available Referred By: Xiomara Walsh Electronically Signed By:ULISES QUINTANA MD
[2022-09-03 23:53] VITALS: BP 138/60; PULSE 62; RESP 18; TEMP 36.7; O2SAT 97
--- NOTE | 2022-09-04 00:15 | P.HPHOSP_ITS ---
History of Present Illness Date of Service: 09/04/22 Chief Complaint: TIA like symptoms 72-year-old female with recently nose DCIS status post lumpectomy, presents the hospital with complaints of TIA like symptoms. Patient reports that she had her usual productive day, which she got home while in the car, she started developing vision issues on her right eye when reading her emails on her phone. She started having intermittent pulsing shock-like waves of her right vision, she did not lose vision she did not have any blurry or double vision. This vision issue lasted about 15 minutes and then spontaneously resolved, while at home, she noticed that she had difficulty spelling familiar words like teniis when trying to writing her calendar. 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 Patient states that she has been having intermittent mild headaches diffuse, otherwise denies any numbness tingling, in face arms or lower extremity, she denies any weakness in any of her extremities. She denies any facial droop, and no difficulty with speech jeffrey. No chest pain, no palpitations, no abdominal pain nausea or vomiting, no diarrhea constipation, no urinary symptoms and no lower extremity edema. On arrival to the ED patient hemodynamically stable Labs are unremarkable CTA head and neck shows no acute intracranial findings, mild chronic small-vess el ischemic disease, no hemodynamically significant stenosis in the major arteries of the neck, no large vessel occlusion or significant stenosis in the intracranial circulation Patient started on aspirin, statin and will be admitted for further evaluation Review of Systems Review of Systems: Yes all other systems are reviewed and are negative [facility] Medical History Arthritis Back pain Ductal carcinoma of breast Hyperthyroidism No significant medical problems Family History Mother Metastatic melanoma Surgical History H/O colonoscopy History of History of lumpectomy of left breast Social History Household Members: Spouse Alcohol intake: current Alcohol intake frequency: a few times a week Patient Tobacco Use Status: Never used Tobacco Smoked in Last 30 Days: No Use of substances other than those prescribed or required for medical reasons: No Advance Directives: No Advance Directives Information Provided: Yes Nutrition Risks: No Nutritional Risk Sexual orientation: Straight/Heterosexual Gender identity: Female Meds Allergies Allergy/AdvReac Type Severity Reaction Status Date / Time sulfamethoxazole Allergy Intermediate Diarrhea Verified 09/01/22 13:37 [From Bactrim] trimethoprim [From Bactrim] Allergy Intermediate Diarrhea Verified 09/01/22 13:37 ibuprofen AdvReac Unknown Gastrointestinal Verified 09/01/22 13:37 Upset Active Medications: Current Medications Pharmacy Consult (Consult Rx Perform Med Rec) 1 each MISCELLANE ONCE PRN PRN Reason: Consult order Home Medications Medication Instructions Recorded Confirmed Last Taken Type calcium carb-ergocalciferol (vit 1 tab PO DAILY 09/15/20 09/03/22 Unknown History D2) 600 mg calcium-200 unit tablet multivitamin 1 tab PO DAILY 09/15/20 09/03/22 Unknown History anastrozole 1 mg tablet 1 mg PO DAILY 11/25/21 09/03/22 Unknown History cholecalciferol (vitamin D3) 25 25 mcg PO DAILY 11/25/21 09/03/22 Unknown History mcg (1,000 unit) capsule lorazepam 1 mg tablet 1 mg PO BEDTIME PRN Insomnia 02/19/22 09/03/22 Unknown History Physical Exam Vital Signs and Narrative: Vital Signs: Last Vital Signs Temp 98.0 F 09/03/22 23:53 Pulse 62 09/03/22 23:53 Resp 18 09/03/22 23:53 BP 138/60 09/03/22 23:53 Pulse Ox 97 09/03/22 23:53 O2 Del Method Room Air 09/03/22 21:04 BMI result Body Mass Index 24.0 Const: General: cooperative and no acute distress Orientation/consciousness: patient oriented x3 Eyes: General: appearance normal, both eyes and all related structures Resp: Effort & Inspection: normal respiratory effort Auscultation: clear to auscultation bilaterally Cardio: Rate: regular rate Rhythm: regular rhythm GI: Palpation (GI): Soft to palpation Auscultation: normal bowel sounds Skin: General skin exam: no rashes or lesions noted Neuro: Other: Nerves 2-12 intact, does have nystagmus on vision to the right upon following my finger without head movement, patient's strength is 5/5 in all extremities, no sensation loss General: patient oriented x3 Cognition (Neuro): normal cognition Extrem: General: Yes normal to inspection and Yes no pedal edema Results Labs 09/03/22 21:23 09/03/22 21:23 Labs: Laboratory Results - last 24 hr 09/03/22 09/03/22 09/03/22 21:01 21:23 21:23 MCV 92.2 MCH 31.3 MCHC 33.9 RDW 12.6 Plt Count 216 MPV 10.1 Immature Gran % (Auto) 0.6 H Neut % (Auto) 69.4 Lymph % (Auto) 18.6 L [place] % (Auto) 9.9 Eos % (Auto) 0.9 Baso % (Auto) 0.6 Lymph # (Auto) 1.2 [place] # (Auto) 0.6 Eos # (Auto) 0.1 Baso # (Auto) 0.0 Abs Immat Gran (auto) 0.04 H Absolute Neuts (auto) 4.5 Absolute Nucleated RBC 0.000 Nucleated RBC % (auto) 0.0 ESR 2 Anion Gap Estim Creat Clear Calc Estimated GFR Random Glucose Calcium Magnesium Total Bilirubin AST ALT Alkaline Phosphatase C-Reactive Protein Total Protein Albumin Urine Color Yellow Urine Appearance Clear Urine pH 6.5 Ur Specific [place] 1.010 Urine Protein Negative Urine Glucose (UA) Negative Urine Ketones Negative Urine Blood Negative Urine Nitrite Negative Ur Leukocyte Esterase Negative 09/03/22 21:23 MCV MCH MCHC RDW Plt Count MPV Immature Gran % (Auto) Neut % (Auto) Lymph % (Auto) [place] % (Auto) Eos % (Auto) Baso % (Auto) Lymph # (Auto) [place] # (Auto) Eos # (Auto) Baso # (Auto) Abs Immat Gran (auto) Absolute Neuts (auto) Absolute Nucleated RBC Nucleated RBC % (auto) ESR Anion Gap 11 L Estim Creat Clear Calc 47.2 Estimated GFR 59 Random Glucose 96 Calcium 9.6 Magnesium 2.0 Total Bilirubin 0.4 AST 19 ALT 18 Alkaline Phosphatase 62 C-Reactive Protein < 0.10 Total Protein 6.3 L Albumin 4.3 Urine Color Urine Appearance Urine pH Ur Specific [place] Urine Protein Urine Glucose (UA) Urine Ketones Urine Blood Urine Nitrite Ur Leukocyte Esterase Imaging Radiologist's Impressions: Impressions Head CT 09/03/22 22:30 IMPRESSION: 1. No acute intracranial findings. Mild chronic small vessel ischemic disease. 2. No hemodynamically significant stenosis in the major arteries of the neck. No large vessel occlusion or significant stenosis in the intracranial circulation. Head/Neck CTA 09/03/22 22:30 IMPRESSION: 1. No acute intracranial findings. Mild chronic small vessel ischemic disease. 2. No hemodynamically significant stenosis in the major arteries of the neck. No large vessel occlusion or significant stenosis in the intracranial circulation. Assessment and Plan (1) Brain TIA: Status: Acute Plan 72-year-old female with significant past medical history of breast cancer status post lumpectomy presents the hospital with complaints of TIA like symptoms # acute CVA - patient with symptoms of dysarthria that has now resolved - no other neurological deficits - no significant risk factors - will obtain MRI - given the highly suspicious symptoms will start aspirin and statin - neurology consulted DVT prophylaxis: Early ambulation Time Spent With Patient Time: Total time managing care of this patient today ____ minutes. Quality Stroke Does the patient have a stroke diagnosis?: No VTE Prior VTE?: No VTE Risk Level:: Medical - low VTE Device Contraindication: Treatment Not Indicated VTE Drug Contraindication: Treatment Not Indicated
--- OUTSIDE RECORDS SUMMARY | 2022-09-04 00:18 | XMS_ITS ---
Author Name Isa Rodrigo Address [address] [place] [address] Organization [facility] Address [address] [place] [address] Care Team Providers Care [employer] Professor Name Role Phone Rodrigo [facility] [phone] PROBLEMS Type Condition ICD9-CM Code [id number] Code Onset Dates Condition Status SNOMED Code Problem Encounter for screening for malignant neoplasm of colon Z12.11 Active 033843820 Problem History of adenomatous polyp of colon Z86.010 Active 415724375 Problem Nausea and vomiting, intractability of vomiting not specified, unspecified vomiting type R11.2 Active 90925263 Problem RLQ abdominal pain R10.31 Active 64744 4002 Problem Encounter for screening for malignant neoplasm of rectum Z12.12 Active 935069324 Problem Elevated liver function tests R79.89 Active 801537084 Problem Preprocedural examination Z01.818 Active 901081575265515 Problem Diarrhea, unspecified type R19.7 Active 31192097 Problem Irritable bowel syndrome with constipation K58.1 Active 830909281 Problem Diverticulosis of colon K57.30 Active 483711961 Problem Elevated liver enzymes R74.8 Active 737150968 ALLERGIES Substance Reaction Event Type Date Status Bactrim Unknown Drug Allergy Jun, Active ENCOUNTERS Encounter Location Date Diagnosis [facility] [address] [place], [place] Jun, Elevated liver function tests R79.89 [facility] [address] [place] [address] [place] 09 Jun, 2022 RLQ abdominal pain R10.31 and Elevated liver enzymes R74.8 [facility] [address] [facility] [place] Jun, [facility] [address] [place], [place] [phone] Sep, Colon cancer screening Z12.11 ; Other hemorrhoids K64.8 and Diverticulosis of colon K57.30 [facility] [address] [place] [address] [place] Jun, Irritable bowel syndrome with constipation K58.1 ; History of adenomatous polyp of colon Z86.010 ; Encounter for screening for malignant neoplasm of colon Z12.11 and Preprocedural examination Z01.818 [facility] [address] [place] [address] Jun, [facility] [address] [place] [address] Nov, Diarrhea, unspecified type R19.7 and Nausea and vomiting, intractability of vomiting not specified, unspecified vomiting type R11.2 [facility] [address] [place] [address] Apr, Encounter for screening for malignant neoplasm of colon Z12.11 [facility] [address] [place] [phone] Oct, Preprocedural examination Z01.818 ; History of adenomatous polyp of colon Z86.010 ; Encounter for screening for malignant neoplasm of colon Z12.11 and Encounter for screening for malignant neoplasm of rectum Z12.12 [facility] [address] [place], [place] [id number] Apr, [facility] [address] [place], [place] [id number] Jan, [facility] [address] [place], [place] [id number] Jun, [facility] [address] [place], [place] [id number] May, [facility] [address] [place], [place] [id number] Apr, [facility] [address] [place] [id number] Mar, [facility] [address] [place], [place] [id number] Jan, [facility] [address] [place], [place] [id number] August, IMMUNIZATIONS Vaccine Route Administration Date Status [...] Subscriber Date of Group No MED[place]ARE OF [place] [address] [facility] [address] MEDICARE [facility] ZEENAT NICHOLS [id number] MEDEX ATTN CLAIMS [address] [facility] [address] MEDEX self ZEENAT NICHOLS [id number] [facility] [address] [facility] [address] [facility] self ZEENAT NICHOLS [id number]
--- OUTSIDE RECORDS SUMMARY | 2022-09-04 00:19 | XMS_ITS ---
Author Name Rodrigo Serna Address [address] [place] [id number] Organization Rodrigo Serna DO [facility] Address [address] [place] [id number] Care Team Providers Care [employer] Name Role Phone Rodrigo Serna [facility] [phone] PROBLEMS Type Condition ICD9-CM Code XUO09-OU Code Onset Dates Condition Status SNOMED Code Problem Irritable bowel syndrome without diarrhea K58.9 Active 28442658 Problem Subacute thyroiditis E06.1 Active 49021391 ALLERGIES Substance Reaction Event Type Date Status Sulfamethoxazole-TMP DS rash, pruritis, diarrhea Drug Phil rgy Jul, Active ENCOUNTERS Encounter Location Date Diagnosis Rodrigo Serna DO [address] [id number] August, Rodrigo Serna DO [address] [id number] Jul, Right lower quadrant abdominal pain R10.31 and Ductal carcinoma in situ (DCIS) of left breast D05.12 Rodrigo Serna DO [address] [id number] Jul, Rodrigo Serna DO [address] [id number] Jun, Rodrigo Serna DO [address] [id number] Jun, Rodrigo Serna DO [address] [id number] Jun, Right upper quadrant abdominal pain R10.11 ; Right lower quadrant abdominal pain R10.31 and Ductal carcinoma in situ (DCIS) of left breast D05.12 Rodrigo Serna DO, [address] [id number] 13 May, 2022 Rodrigo Serna DO, [address] [id number] May, Rodrigo Serna DO, [address] [id number] Apr, Rodrigo Serna DO, [address] [id number] Apr, Rodrigo Serna DO, [address] [id number] Apr, Rodrigo Serna DO, [address] [id number] Apr, Rodrigo Serna DO, [address] [id number] Feb, Rodrigo Serna DO, [address] [id number] Feb, Rodrigo Serna DO, [address] [id number] Nov, Subacute thyroiditis E06.1 Rodrigo Serna DO, [address] [id number] Nov, Neck pain on left side M54.2 and Neck pain on right side M54.2 Rodrigo Serna DO, [address] [id number] Nov, Rodrigo Serna DO, [address] [id number] Oct, Rodrigo Serna DO, [address] [id number] Sep, Rodrigo Serna DO, [address] [id number] Jun, Rodrigo Serna DO, [address] [id number] Jun, Rodrigo Serna DO, [address] [id number] Jun, Rodrigo Serna DO, [address] [id number] Jun, Rodrigo Serna DO, [address] [id number] Feb, Rodrigo Serna DO, [address], [place] [id number] Jan, Rodrigo Serna DO, [facility] [address] [place], [place] [id number] Dec, Rodrigo Serna DO, [facility] [place], [place] [id number] Dec, Encounter for general adult medical examination without abnormal findings Z00.00 Rodrigo Serna DO, [facility] [address] [place], [place] [id number] Jun, Rodrigo Serna DO, [facility] [address] [place], [place] [id number] May, Irritable bowel syndrome without diarrhea K58.9 [...] Negative Negative Urine Blood Negative Negative Specific [place] - Urine <= 1.005 1.0 05-1.025 Urine [...] NEG NEG Urine Blood NEG NEG Specific [place] - Urine 1.015 1.0 05-1.025 Urine Protein NEG NEG-TRACE Urine Ketones NEG NEG Nitrite Urine NEG NEG Leukocyte Esterase Urine TRACE NEG RBC Urine 0 0 WBC Urine 0-2 0-4 Squamous Epithelial Cell Urine TRACE Bacteria Urine NONE Comprehensive [place]. Panel Fast 2020-12-17 Sodium 142 135-145 Potassium [...] Subscriber Name Subscriber Date of Group No MEDEX [address] [facility] [id number] MEDEX self Jasmina Aponte [id number] MEDICARE [address] [place] [address] MEDICARE self Jasmina Aponte [id number]
[2022-09-04] MEDS: Aspirin Enteric Coated 81 MG TABLET.DR PO ×2 (00:32→09:16)
[2022-09-04] MEDS: Atorvastatin Calcium 80 MG TABLET PO (00:32)
--- NOTE | 2022-09-04 00:44 | PC.NURSE ---
pt resting comfortably on stretcher in no apparent distress, denies any pain, denies headaches, states symptoms have resolved from prior. pt pass swallow eval. sipping water and eating sriram cracker with no issues. 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 call fowler within reach. waiting for bed assignment on c. will CTM.
--- NOTE | 2022-09-04 01:04 | PC.NURSE ---
attempted to call report to room 457 @0100 but no answer from RN. waiting for call back.
--- NOTE | 2022-09-04 01:20 | PC.NURSE ---
called for report @ 01:17. waiting for callback
--- NOTE | 2022-09-04 01:56 | PC.NURSE ---
attempted to call back report to RN @0030 waiting for call back
[2022-09-04 02:42] VITALS: BMI 24.5
[2022-09-04 03:10] VITALS: BP 107/53; PULSE 54; RESP 16; TEMP 36.4; O2SAT 96
[2022-09-04 06:24] LABS: MANUAL DIFF FLAG NO
[2022-09-04 06:31] LABS: Basophils Absolute Auto 0.1 X10*3/uL (0.0-0.2); Basophils Percent Auto 0.9 % (0-2); Eosinophils Absolute Auto 0.1 X10*3/uL (0.0-0.4); Eosinophils Percent Auto 1.3 % (0-4); Hematocrit 39.6 % (37.0-47.0); Hemoglobin 13.1 g/dl (12.0-16.0); Imm Gran Abs Auto 0.03 X10*3/uL (0.00-0.03); Imm Gran Pct Auto 0.6 % (0.0-0.4); Lymphocytes Absolute Auto 1.1 X10*3/uL (1.2-4.9); Lymphocytes Percent Auto 19.9 % (20-40); Mean Corpuscular HGB Conc 33.1 g/dl (31.0-35.0); Mean Corpuscular Hemoglobin 30.6 pg (27.0-33.0); Mean Corpuscular Volume 92.5 fL (80.0-98.0); Mean Platelet Volume 10.3 fL (9.4-12.3); Monocytes Absolute Auto 0.7 X10*3/uL (0.1-1.2); Monocytes Percent Auto 13.2 % (2-11); Neutrophils Absolute Auto 3.5 x10*3/uL (2.0-8.3); Neutrophils Percent Auto 64.1 % (45-73); Platelet Count 196 X10*3/uL (160-400); Red Blood Count 4.28 X10*6/uL (4.20-5.50); Red Cell Distribution Width 12.5 % (11.0-16.0); White Blood Count 5.4 X10*3/uL (4.8-10.8)
[2022-09-04 07:10] LABS: Anion Gap 10 (12-20); Blood Urea Nitrogen 17 mg/dL (9-16); Calcium 9.2 mg/dL (8.4-10.2); Carbon Dioxide 27 mmol/L (22-29); Chloride 108 mmol/L (96-108); Creatinine Clr Calc Pharmacy 59.3; Estimated Glomerular Filt Rate > 60; Glucose Random 89 mg/dL (60-115); Potassium 4.1 mmol/L (3.3-5.1); Sodium 141 mmol/L (135-145)
[2022-09-04 07:26] VITALS: BP 101/53; PULSE 50; RESP 20; TEMP 36.3; O2SAT 96
[2022-09-04] MEDS: Multivitamin TABLET 1 TAB PO (09:16)
[2022-09-04] MEDS: Anastrozole 1 MG TABLET PO (09:16)
[2022-09-04] MEDS: Cholecalciferol (Vitamin D3) 25 MCG TABLET PO (09:16)
[2022-09-04] MEDS: Calcium + Vitamin D 250 MG TABLET PO (09:16)
[2022-09-04 11:23] VITALS: BP 117/57; PULSE 60; RESP 20; TEMP 36.1; O2SAT 96
--- NOTE | 2022-09-04 14:55 | P.PNIM_ITS ---
Subjective Subjective Date of Service: 09/04/22 Interval History: seen and examined this morning follow up for possible TIA Patient had right eye blurry vision, difficulty with word finding, intermittent headache prior to admission. Symptoms resolved at this time No specific complaints this morning Review of Systems Review of Systems: Yes all other systems are reviewed and are negative Constitutional Constitutional: Denies chills and Denies fever(s) Cardiovascular Cardiovascular: Denies chest pain, Denies palpitations and Denies dyspnea Respiratory Respiratory: Denies cough and Denies dyspnea Endocrine Endocrine: Denies palpitations Physical Exam Vital Signs: Vital Signs: Last Vital Signs Temp 97.0 F 09/04/22 11:23 Pulse 60 09/04/22 11:23 Resp 20 09/04/22 11:23 BP 117/57 L 09/04/22 11:23 Pulse Ox 96 09/04/22 11:23 O2 Del Method Room Air 09/04/22 11:23 BMI result Body Mass Index 24.5 Const: General: cooperative, comfortable, no acute distress, alert and awake Nutritional Appearance: average body habitus Orientation/consciousness: patient oriented x3 Eyes: Pupils: Equal, round and reactive pupils present Resp: Effort & Inspection: normal respiratory effort and able to speak in complete sentences Auscultation: clear to auscultation bilaterally Cardio: Rate: regular rate Heart sounds: S1 normal heart sound present and S2 normal heart sound present GI: Inspection: No distended Palpation (GI): Soft to palpation and nontend er Neuro: General: patient oriented x3, moves all extremities and CN's II-XI intact bilaterally Cranial nerves: Yes Equal, round and reactive pupils present, Yes Bilaterally intact EOM present, Yes Normal facial strength present and Yes Midline tongue present Extrem: General: Yes no pedal edema Objective Data Active Medications Acetaminophen (Acetaminophen 325 Mg Tablet) 650 mg PO Q6H PRN PRN Reason: Pain, Mild (Pain Scale 1-3) Anastrozole (Anastrozole 1 Mg Tablet) 1 mg PO DAILY [facility] Last Admin: 09/04/22 09:16 Dose: 1 mg Documented By: HUA Aspirin (Aspirin Enteric Coated 81 Mg Tablet.) 81 mg PO DAILY [facility] Last Admin: 09/04/22 09:16 Dose: 81 mg Documented By: HUA Atorvastatin Calcium (Atorvastatin Calcium 80 Mg Tablet) 80 mg PO BEDTIME [facility] Last Admin: 09/04/22 00:32 Dose: 80 mg Documented By: HAROON Calcium Carbonate/Cholecalciferol (Calcium + Vitamin D 250 Mg Tablet) 250 mg PO DAILY [facility] Last Admin: 09/04/22 09:16 Dose: 250 mg Documented By: HUA Docusate Sodium (Docusate Sodium 100 Mg Capsule) 100 mg PO DAILY PRN PRN Reason: Constipation Lorazepam (Lorazepam 1 Mg Tablet) 1 mg PO BEDTIME PRN PRN Reason: Insomnia Multivitamins/Vitamin C (Multivitamin Tablet) 1 tab PO DAILY [facility] Last Admin: 09/04/22 09:16 Dose: 1 tab Documented By: HUA Ondansetron HCl (Ondansetron Hcl 4 Mg/2 Ml Vial) 4 mg IVPUSH Q8H PRN PRN Reason: Nausea and Vomiting Pharmacy Consult (Consult Rx Perform Med Rec) 1 each MISCELLANE ONCE PRN PRN Reason: Consult order Vitamin D (Cholecalciferol (Vitamin D3) 25 Mcg Tablet) 25 mcg PO DAILY [facility] Last Admin: 09/04/22 09:16 Dose: 25 mcg Documented By: HUA Labs 09/04/22 06:12 09/04/22 06:12 Labs: Laboratory Results - last 24 hr 09/03/22 09/03/22 09/03/22 21:01 21:23 21:23 MCV 92.2 MCH 31.3 MCHC 33.9 RDW 12.6 Plt Count 216 MPV 10.1 Immature Gran % (Auto) 0.6 H Neut % (Auto) 69.4 Lymph % (Auto) 18.6 L [place] % (Auto) 9.9 Eos % (Auto) 0.9 Baso % (Auto) 0.6 Lymph # (Auto) 1.2 [place] # (Auto) 0.6 Eos # (Auto) 0.1 Baso # (Auto) 0.0 Abs Immat Gran (auto) 0.04 H Absolute Neuts (auto) 4.5 Absolute Nucleated RBC 0.000 Nucleated RBC % (auto) 0.0 ESR 2 Anion Gap Estim Creat Clear Calc Estimated GFR Random Glucose Calcium Magnesium Total Bilirubin AST ALT Alkaline Phosphatase C-Reactive Protein Total Protein Albumin Urine Color Yellow Urine Appearance Clear Urine pH 6.5 Ur Specific [place] 1.010 Urine Protein Negative Urine Glucose (UA) Negative Urine Ketones Negative Urine Blood Negative Urine Nitrite Negative Ur Leukocyte Esterase Negative 09/03/22 09/04/22 09/04/22 21:23 06:12 06:12 MCV 92.5 MCH 30.6 MCHC 33.1 RDW 12.5 Plt Count 196 MPV 10.3 Immature Gran % (Auto) 0.6 H Neut % (Auto) 64.1 Lymph % (Auto) 19.9 L [place] % (Auto) 13.2 H Eos % (Auto) 1.3 Baso % (Auto) 0.9 Lymph # (Auto) 1.1 L [place] # (Auto) 0.7 Eos # (Auto) 0.1 Baso # (Auto) 0.1 Abs Immat Gran (auto) 0.03 Absolute Neuts (auto) 3.5 Absolute Nucleated RBC 0.000 Nucleated RBC % (auto) 0.0 ESR Anion Gap 11 L 10 L Estim Creat Clear Calc 47.2 59.3 Estimated GFR 59 > 60 Random Glucose 96 89 Calcium 9.6 9.2 Magnesium 2.0 Total Bilirubin 0.4 AST 19 ALT 18 Alkaline Phosphatase 62 C-Reactive Protein < 0.10 Total Protein 6.3 L Albumin 4.3 Urine Color Urine Appearance Urine pH Ur Specific [place] Urine Protein Urine Glucose (UA) Urine Ketones Urine Blood Urine Nitrite Ur Leukocyte Esterase Assessment and Plan (1) Brain TIA: Status: Acute Plan 72-year-old female with significant past medical history of breast cancer status post lumpectomy presents the hospital with complaints of TIA like symptoms blurry vision, word finding difficulty possible TIA vs stroke No residual symptoms therefore not tpa candidate and no need for PT/OT evaluation brain CT/head and neck CTA negative. No focal neurological deficits MRI not available at this time started on aspirin and statin lipid profile pending neurology consult pending Breast cancer Continue anastrozole DVT prophylaxis: Early ambulation attending - dr medina Time Spent With Patient Time: Total time managing care of this patient today ____ minutes. Quality Stroke Does the patient have a stroke diagnosis?: No VTE Prior VTE?: No VTE Risk Level:: Medical - low VTE Device Contraindication: Treatment Not Indicated VTE Drug Contraindication: Treatment Not Indicated
[2022-09-04 15:11] VITALS: BP 111/58; PULSE 62; RESP 20; TEMP 36.8; O2SAT 97
[2022-09-04 15:18] LABS: Cholesterol 194 mg/dL; HDL Cholesterol 54 mg/dL; LDL Cholesterol Calculated 131 mg/dl; Triglycerides 45 mg/dL
--- NOTE | 2022-09-04 17:32 | PM.NEUROCN ---
History of Present Illness Data of Consult Service Date: 09/04/22 Primary Care Provider: DO ADAIR Reynolds Reason for consult: transient right visual disturbance and speech problem this is a 72-year-old right-handed woman with a history of breast cancer on anastrozole who is otherwise healthy, who presented with a transient episode of right visual disturbance and some language problems that lasted about 45 minutes. She had been out shopping and when she returned she was checking her e-mail and noticed a circular bubble in her vision but could see around it. It seemed like a water bubble which seemed to be confined to the right eye because she did try and close the other eye and so it but when she closes the right eye she did not see it. She went and laid down for about 15 minutes and then she tried to write her tennis schedule and could not spell the word tennis and then she was showing her shopping to her and could not get the words out and was speaking with nonsensical words and she was aware of it. She went and laid back down and in about 45 minutes everything had cleared. During this time she had mild to moderate headache off and on. There was no facial droop no complete loss of vision no lateralized numbness or weakness. She has never had anything like this before. There was no history of migraines in the past. Her mother had migraines in 2 of her daughters have also had migraines. Since April she has had a right mid abdominal area of pain numbness and burning sensations for which she had a laparoscopy and had her appendix removed which was normal. The symptoms have gotten better in the last week. Some of the symptoms go around the abdomen on the right side suggestive of a thoracic T10 reticular abnormality possible shingles without eruptions She had a CT scan of the head which was unremarkable with minor microvascular white matter changes and a CTA of the head and neck which is unremarkable with no occlusive disease. She has no stroke risk factors. MRI cannot be done over the weekend. Review of Systems Review of Systems: Constitutional : No Weight loss, No Fever, No Chills, No Night Sweats, No Fatigue, No Malaise ENT/Mouth : No Hearing loss, No Ear Pain, No Nasal Congestion, No Sinus Pain, No Hoarseness, No sore throat, No Rhinorrhea, No Swallowing Difficulty Eyes: No Eye Pain, No Swelling, No Redness, No Foreign Body, No Discharge, No Vision Changes Cardiovascular : No Chest Pain, No SOB, No Dyspnea on Exertion, No Orthopnea, No Edema, No Palpitations Respiratory : No Cough, No Sputum, No Wheezing, No Smoke Exposure, No Dyspnea Gastrointestinal : No Nausea, No Vomiting, No Diarrhea, No Constipation, No abdominal Pain, No Hematochezia, No Melena Genitourinary : no irregular bleeding, No Dysuria, No Urinary Frequency, No Hematuria, No Urinary Incontinence, No Urgency, No Flank Pain, No Urinary Flow Changes, No Hesitancy Musculoskeletal : No joint pain, No Myalgias, No Joint Swelling Skin : No Skin Lesions, No rash Neuro : No Weakness, No Numbness, No Paresthesias, No Loss of Consciousness, No Dizziness, complaining of an episode of dysarthria, unable to find words or write words. Episode of head pressure that lasted for about 1 minute. Psych : No Anxiety/Panic, No Depression, No SI/HI/AH/VH, No Social Issues, Heme/Lymph: No Bruising, No Bleeding,No Lymphadenopathy Endocrine : No Polyuria, No Polydipsia, No Temperature Intolerance Yes all other systems are reviewed and are negative Constitutional: Constitutional: Denies chills and Denies fever(s) Cardiovascular: Cardiovascular: Denies chest pain, Denies palpitations and Denies dyspnea Respiratory: Respiratory: Denies cough and Denies dyspnea Endocrine: Endocrine: Denies palpitations PMFSH Past Medical History Medical History Arthritis Back pain Ductal carcinoma of breast Hyperthyroidism No significant medical problems Family History Family History Mother Metastatic melanoma Surgical History Surgical History H/O colonoscopy History of History of lumpectomy of left breast Social History Social History Household Members: Spouse Alcohol intake: current Alcohol intake frequency: a few times a week Patient Tobacco Use Status: Never used Tobacco Smoked in Last 30 Days: No Use of substances other than those prescribed or required for medical reasons: No Advance Directives: No Advance Directives Information Provided: Yes Nutrition Risks: No Nutritional Risk Sexual orientation: Straight/Heterosexual Gender identity: Female Meds Allergies Allergy/AdvReac Type Severity Reaction Status Date / Time sulfamethoxazole Allergy Intermediate Diarrhea Verified 09/01/22 13:37 [From Bactrim] trimethoprim [From Bactrim] Allergy Intermediate Diarrhea Verified 09/01/22 13:37 ibuprofen AdvReac Unknown Gastrointestinal Verified 09/01/22 13:37 Upset Active Medications: Current Medications Acetaminophen (Acetaminophen 325 Mg Tablet) 650 mg PO Q6H PRN PRN Reason: Pain, Mild (Pain Scale 1-3) Anastrozole (Anastrozole 1 Mg Tablet) 1 mg PO DAILY [facility] Last Admin: 09/04/22 09:16 Dose: 1 mg Aspirin (Aspirin Enteric Coated 81 Mg Tablet.Dr) 81 mg PO DAILY [facility] Last Admin: 09/04/22 09:16 Dose: 81 mg Atorvastatin Calcium (Atorvastatin Calcium 80 Mg Tablet) 80 mg PO BEDTIME [facility] Last Admin: 09/04/22 00:32 Dose: 80 mg Calcium Carbonate/Cholecalciferol (Calcium + Vitamin D 250 Mg Tablet) 250 mg PO DAILY [facility] Last Admin: 09/04/22 09:16 Dose: 250 mg Docusate Sodium (Docusate Sodium 100 Mg Capsule) 100 mg PO DAILY PRN PRN Reason: Constipation Lorazepam (Lorazepam 1 Mg Tablet) 1 mg PO BEDTIME PRN PRN Reason: Insomnia Multivitamins/Vitamin C (Multivitamin Tablet) 1 tab PO DAILY [facility] Last Admin: 09/04/22 09:16 Dose: 1 tab Ondansetron HCl (Ondansetron Hcl 4 Mg/2 Ml Vial) 4 mg IVPUSH Q8H PRN PRN Reason: Nausea and Vomiting Pharmacy Consult (Consult Rx Perform Med Rec) 1 each MISCELLANE ONCE PRN PRN Reason: Consult order Vitamin D (Cholecalciferol (Vitamin D3) 25 Mcg Tablet) 25 mcg PO DAILY [facility] Last Admin: 09/04/22 09:16 Dose: 25 mcg Home Medications Medication Instructions Recorded Confirmed Last Taken Type calcium carb-ergocalciferol (vit 1 tab PO DAILY 09/15/20 09/03/22 Unknown History D2) 600 mg calcium-200 unit tablet multivitamin 1 tab PO DAILY 09/15/20 09/03/22 Unknown History anastrozole 1 mg tablet 1 mg PO DAILY 11/25/21 09/03/22 Unknown History cholecalciferol (vitamin D3) 25 25 mcg PO DAILY 11/25/21 09/03/22 Unknown History mcg (1,000 unit) capsule lorazepam 1 mg tablet 1 mg PO BEDTIME PRN Insomnia 02/19/22 09/03/22 Unknown History Physical Exam Vital Signs: Vital Signs: Last Vital Signs Temp 98.3 F 09/04/22 15:11 Pulse 62 09/04/22 15:11 Resp 20 09/04/22 15:11 BP 111/58 L 09/04/22 15:11 Pulse Ox 97 09/04/22 15:11 O2 Del Method Room Air 09/04/22 15:11 BMI result Body Mass Index 24.5 Const: Other: Appearance: Alert. Oriented X3. No acute distress. Eyes: Pupils equal, round and reactive to light. ENT: Pharynx normal. Neck: Normal inspection. Neck supple. No lymph nodes noted. No crepitus CVS: Normal heart rate and rhythm. Pulses normal. Normal S1 and S2 Respiratory: No respiratory distress. Breath sounds normal. No Wheezing. No rales Abdomen: Soft and nontender. No rigidity. No distention. Skin: Skin warm and dry. Normal skin color. Normal skin turgor. Extremities: No lower extremity edema. No Lacerations. No Rash Neuro: Oriented X 3. No motor deficit. No sensory deficit. Moving all extremities. No slurred speech. CN 2 through 12 grossly intact Psych: calm, cooperative, normal affect General: cooperative, comfortable, no acute distress, alert and awake Nutritional Appearance: average body habitus Orientation/consciousness: patient oriented x3 Eyes: General: appearance normal, both eyes and all related structures Pupils: Equal, round and reactive pupils present Resp: Effort & Inspection: normal respiratory effort and able to speak in complete sentences Auscultation: clear to auscultation bilaterally Cardio: Rate: regular rate Rhythm: regular rhythm Heart sounds: S1 normal heart sound present and S2 normal heart sound present GI: Inspection: No distended Palpation (GI): Soft to palpation and nontender Auscultation: normal bowel sounds Skin: General skin exam: no rashes or lesions noted Neuro: Other: She is alert and oriented with normal intellectual functions. Speech and language functions are entirely normal. Her vision is back to normal.Nerves 2-12 intact, Muscle tone and strength normal in all 4 extremities. General: patient oriented x3, moves all extremities and CN's II-XI intact bilaterally Cranial nerves: Yes Equal, round and reactive pupils present, Yes Bilaterally intact EOM present, Yes Normal facial strength present and Yes Midline tongue present Cognition (Neuro): normal cognition Extrem: General: Yes normal to inspection and Yes no pedal edema Results Labs 09/04/22 06:12 09/04/22 06:12 Labs: Short CBC 09/03/22 09/04/22 Range/Units 21:23 06:12 WBC 6.5 5.4 (4.8-10.8) X10*3/uL Hgb 13.3 13.1 (12.0-16.0) g/dl Hct 39.2 39.6 (37.0-47.0) % Plt Count 216 196 (160-400) X10*3/uL BMP 09/03/22 09/04/22 21:23 06:12 Sodium 138 141 Potassium 4.1 4.1 Chloride 103 108 Carbon Dioxide 28 27 BUN 21 H 17 H Creatinine 0.93 0.74 Calcium 9.6 9.2 Liver Function 09/03/22 Range/Units 21:23 Total Bilirubin 0.4 (0.0-1.0) mg/dL AST 19 (5-31) U/L ALT 18 (0-31) U/L Alkaline Phosphatase 62 (39-117) U/L Albumin 4.3 (3.5-5.0) g/dL Urine 09/03/22 Range/Units 21:01 Urine Color Yellow Urine Appearance Clear Urine pH 6.5 (5.0-9.0) Ur Specific [place] 1.010 (1.005-1.025) Urine Protein Negative (Neg-Trace) mg/dL Urine Glucose (UA) Negative (Negative) mg/dL Assessment and Plan (1) Migraine equivalent: Status: Acute the temporal profile of her symptoms and the kind of symptoms she experienced are more suggestive of a migraine equivalent and a TIA in the left hemisphere. This could be a late life migraine onset with a family history in previous and subsequent generation of migraine (2) Brain TIA: Status: Acute it is less likely to be a TIA in the left hemisphere with language involvement in the right I isolated visual phenomena which would involve a 2nd vascular distribution and makes it unlikely. Recommendations: MRI of the brain as an outpatient. Continue aspirin 81 mg a day for now. Symptomatic treatment for headaches if they recur. No need to start a statin at this time. Outpatient follow-up she can be discharged at this point. Plan 72-year-old female with significant past medical history of breast cancer status post lumpectomy presents the hospital with complaints of TIA like symptoms blurry vision, word finding difficulty possible TIA vs stroke No residual symptoms therefore not tpa candidate and no need for PT/OT evaluation brain CT/head and neck CTA negative. No focal neurological deficits MRI not available at this time started on aspirin and statin lipid profile pending neurology consult pending Breast cancer Continue anastrozole DVT prophylaxis: Early ambulation attending - dr medina Time Spent With Patient Time: Total time managing care of this patient today ____ minutes. Procedures Date of Service Date of Service: 09/04/22
--- NOTE | 2022-09-04 17:48 | P.DS_ITS ---
DS: Providers Provider Date of Service: 09/04/22 Date of admission: 09/04/22 00:09 Date of discharge: 09/04/22 Primary care physician: Rodrigo Serna DO Consults: 09/04/22 00:14 Consult to Neurology Routine Consulting Provider: [facility] Reason for consultation: cva Has provider been notified: No Attending physician on discharge: Lavinia Galindo Discharging clinician: Racheal Moreira DS: Diagnosis Discharge Diagnosis (1) Migraine equivalent: Status: Acute DS: Summary Hospital Course Hospital Course: From H&P on day of admission 72-year-old female with recently nose DCIS status post lumpectomy, presents the hospital with complaints of TIA like symptoms.? Patient reports that she had her usual productive day, which she got home while in the car, she started developing vision issues on her right eye when reading her emails on her phone.? She started having intermittent pulsing shock-like waves of her right vision, she did not lose vision she did not have any blurry or double vision.? This vision issue lasted about 15 minutes and then spontaneously resolved, while at home, she noticed that she had difficulty spelling familiar words like teniis when trying to writing her calendar. 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 Patient states that she has been having intermittent mild headaches diffuse, otherwise denies any numbness tingling, in face arms or lower extremity, she denies any weakness in any of her extremities.? She denies any facial droop, and no difficulty with speech jeffrey.? No chest pain, no palpitations, no abdominal pain nausea or vomiting, no diarrhea constipation, no urinary symptoms and no lower extremity edema.? On arrival to the ED patient hemodynamically stable Labs are unremarkable CTA head and neck shows no acute intracranial findings, mild chronic small- vessel ischemic disease, no hemodynamically significant stenosis in the major arteries of the neck, no large vessel occlusion or significant stenosis in the intracranial circulation Patient started on aspirin, statin and will be admitted for further evaluation transient blurry vision and word finding difficulty No residual symptoms therefore not tpa candidate and no need for PT/OT evaluation. brain CT/head and neck CTA negative.? No focal neurological deficits noted. No significant risk factors for stroke. Initially treated with aspirin and statin. She had no recurrance of symptoms. She was seen in consultation by neurology who felt that?the temporal profile of her symptoms and the kind of symptoms she experienced are more suggestive of a migraine equivalent then a TIA.?This could be a late life migraine onset with a family history in previous and subsequent generation of migraine. Recommend baby aspirin for now and outpatient noncontrast brain MRI which will need to be ordered by her PCP. Symptomatic treatment for headaches if they recur. Time Spent with Patient Time attestation: Total time managing care of this patient today ____ minutes. Discharge coordination time: Greater than 30 minutes Quality: Safe Use of Opioids Does Pt have an Active Cancer Diagnosis on the Problem List?: No Quality: Stroke Does the patient have a stroke diagnosis?: No Physical Exam Vital Signs: Vital Signs: Last Vital Signs Temp 98.3 F 09/04/22 15:11 Pulse 62 09/04/22 15:11 Resp 20 09/04/22 15:11 BP 111/58 L 09/04/22 15:11 Pulse Ox 97 09/04/22 15:11 O2 Del Method Room Air 09/04/22 15:11 BMI result Body Mass Index 24.5 Const: General: cooperative, comfortable, no acute distress, alert and awake Nutritional Appearance: average body habitus Orientation/consciousness: patient oriented x3 Eyes: Pupils: Equal, round and reactive pupils present Resp: Effort & Inspection: normal respiratory effort and able to speak in complete sentences Auscultation: clear to auscultation bilaterally Cardio: Rate: regular rate Heart sounds: S1 normal heart sound present and S2 normal heart sound present GI: Inspection: No distended Palpation (GI): Soft to palpation and nontender Neuro: General: patient oriented x3, moves all extremities and CN's II-XI intact bilaterally Cranial nerves: Yes Equal, round and reactive pupils present, Yes Bilaterally intact EOM present, Yes Normal facial strength present and Yes Midline tongue present Extrem: General: Yes no pedal edema DS: Data Data Completed and Pending Labs on day of discharge: Laboratory Results - last 24 hr 09/03/22 09/03/22 09/03/22 21:01 21:23 21:23 WBC 6.5 RBC 4.25 Hgb 13.3 Hct 39.2 MCV 92.2 MCH 31.3 MCHC 33.9 RDW 12.6 Plt Count 216 MPV 10.1 Immature Gran % (Auto) 0.6 H Neut % (Auto) 69.4 Lymph % (Auto) 18.6 L [place] % (Auto) 9.9 Eos % (Auto) 0.9 Baso % (Auto) 0.6 Lymph # (Auto) 1.2 [place] # (Auto) 0.6 Eos # (Auto) 0.1 Baso # (Auto) 0.0 Abs Immat Gran (auto) 0.04 H Absolute Neuts (auto) 4.5 Absolute Nucleated RBC 0.000 Nucleated RBC % (auto) 0.0 ESR 2 Sodium Potassium Chloride Carbon Dioxide Anion Gap BUN Creatinine Estim Creat Clear Calc Estimated GFR Random Glucose Calcium Magnesium Total Bilirubin AST ALT Alkaline Phosphatase C-Reactive Protein Total Protein Albumin Triglycerides Cholesterol LDL Cholesterol, Calc HDL Cholesterol Urine Color Yellow Urine Appearance Clear Urine pH 6.5 Ur Specific [place] 1.010 Urine Protein Negative Urine Glucose (UA) Negative Urine Ketones Negative Urine Blood Negative Urine Nitrite Negative Ur Leukocyte Esterase Negative 09/03/22 09/04/22 09/04/22 21:23 06:12 06:12 WBC 5.4 RBC 4.28 Hgb 13.1 Hct 39.6 MCV 92.5 MCH 30.6 MCHC 33.1 RDW 12.5 Plt Count 196 MPV 10.3 Immature Gran % (Auto) 0.6 H Neut % (Auto) 64.1 Lymph % (Auto) 19.9 L [place] % (Auto) 13.2 H Eos % (Auto) 1.3 Baso % (Auto) 0.9 Lymph # (Auto) 1.1 L [place] # (Auto) 0.7 Eos # (Auto) 0.1 Baso # (Auto) 0.1 Abs Immat Gran (auto) 0.03 Absolute Neuts (auto) 3.5 Absolute Nucleated RBC 0.000 Nucleated RBC % (auto) 0.0 ESR Sodium 138 141 Potassium 4.1 4.1 Chloride 103 108 Carbon Dioxide 28 27 Anion Gap 11 L 10 L BUN 21 H 17 H Creatinine 0.93 0.74 Estim Creat Clear Calc 47.2 59.3 Estimated GFR 59 > 60 Random Glucose 96 89 Calcium 9.6 9.2 Magnesium 2.0 Total Bilirubin 0.4 AST 19 ALT 18 Alkaline Phosphatase 62 C-Reactive Protein < 0.10 Total Protein 6.3 L Albumin 4.3 Triglycerides 45 Cholesterol 194 LDL Cholesterol, Calc 131 HDL Cholesterol 54 Urine Color Urine Appearance Urine pH Ur Specific [place] Urine Protein Urine Glucose (UA) Urine Ketones Urine Blood Urine Nitrite Ur Leukocyte Esterase Imaging CT scan - head: Radiologist's impression: ITS Impressions Head CT 09/03/22 22:30 IMPRESSION: 1. No acute intracranial findings. Mild chronic small vessel ischemic disease. 2. No hemodynamically significant stenosis in the major arteries of the neck. No large vessel occlusion or significant stenosis in the intracranial circulation. Head/Neck CTA 09/03/22 22:30 IMPRESSION: 1. No acute intracranial findings. Mild chronic small vessel ischemic disease. 2. No hemodynamically significant stenosis in the major arteries of the neck. No large vessel occlusion or significant stenosis in the intracranial circulation. Discharge Plan Discharge Anticipated Discharge Date/Time: 09/04/22 17:43 Patient Disposition: Home, Self-Care Discharge Diagnosis: vision changes/word finding difficulty related to probable migraine Referrals: Rodrigo Serna DO [Primary Care Provider] - 1 Week (outpatient non contrast brain MRI recommended by neurology ) Discharge Medications: New aspirin 81 mg Tablet,Delayed Release (Dr/Ec) 81 mg PO DAILY 30 Days Qty: 30 0RF Continued multivitamin Tablet 1 tab PO DAILY calcium carbonate-vitamin D2 600 mg calcium- 200 unit Tablet 1 tab PO DAILY lorazepam 1 mg tablet 1 mg PO BEDTIME PRN (Reason: Insomnia) anastrozole 1 mg tablet 1 mg PO DAILY cholecalciferol (vitamin D3) 25 mcg (1,000 unit) capsule 25 mcg PO DAILY Discharge Orders: Discharge Order (Routine); Ordered 09/04/22 Ordered By: Racheal Moreira Activity on Discharge: As tolerated Stand Alone Forms: Patient Portal Discharge page Care Plan Goals: see below Health Concerns: Vision changes and word finding difficulty Plan of Treatment: symptoms likely a result of migraine equivalent take aspirin 81 mg daily as tolerated - prescription sent or over the counter - your preference recommend short interval outpatient non contrast brain MRI - please discuss with your PCP Assessment: see discharge summary
== END 2022-09-04 18:18 | disposition home or self-care (01) ==
LOC: HO.ED 23:32 → HO.EDOVER 09-04 00:17 → HO.IMC 09-04 00:36
PROVIDERS: Physician Assistant Medical; Admitting Provider Internal Medicine; Emergency Provider Emergency Medicine; PCP Internal Medicine; Visit Provider Physician Assistant Medical
DX: G43.109 Migraine with aura, not intractable, without status migrainosus (principal); H54.61 Unqualified visual loss, right eye, normal vision left eye; Z85.3 Personal history of malignant neoplasm of breast; M19.90 Unspecified osteoarthritis, unspecified site; E05.90 Thyrotoxicosis, unspecified without thyrotoxic crisis or storm
CPT/HCPCS: 36415; 70450; 70496; 70498; 80048; 80053; 80061; 81003; 83735; 85025; 85652; 86140; 93005; 99222; 99285; Q9967

== ENCOUNTER 2022-09-06 15:11 | Outpatient (REF) | payer MEDICARE, SELFPAY ==
[2022-09-08 23:09] LABS: A. Phagocytphilium DNA,RT-PCR NOT DETECTED (NOT DETECTED); Babesia Microti DNA, RT-PCR NOT DETECTED (NOT DETECTED); Borrelia Miyamotoi,DNA RT-PCR NOT DETECTED (NOT DETECTED); E.Chaffeensis DNA RT-PCR NOT DETECTED (NOT DETECTED); Lyme(Borrelia ssp)DNA RT-PCR NOT DETECTED (NOT DETECTED)
== END 2022-09-06 15:12 | disposition home or self-care (01) ==
LOC: HO.LAB 15:11
PROVIDERS: Internal Medicine Pulmonary Disease; PCP Internal Medicine; Visit Provider Dermatology
DX: L29.8 Other pruritus (principal)
CPT/HCPCS: 36415; 86787; 87798; 87801

== ENCOUNTER 2022-09-10 16:30 | Outpatient (REF) | payer MEDICARE, SELFPAY ==
--- NOTE | ~2022-09-10 | MR_ITS ---
EXAMINATION: MR BRAIN WITHOUT CONTRAST CLINICAL INFORMATION: TIA COMPARISON: CTA head and neck 09/03/2022 TECHNIQUE: Multiplanar multisequence MR imaging of the brain was obtained without intravenous contrast. FINDINGS: There is no acute infarct on diffusion-weighted imaging. There is no intracranial hemorrhage on iron-sensitive imaging. No extra-axial collection or mass effect/herniation. Scattered periventricular and deep white matter T2 FLAIR hyperintensities consistent with mild to moderate underlying microangiopathy. No hydrocephalus. The ventricles are normal in morphology and size. The major flow voids at the skull base are preserved. The midline structures are normal. The cerebellar tonsils are normally positioned. The craniocervical junction is normal. Marrow signal is within normal limits. The visualized soft tissues are without significant abnormality. No signal abnormality within the paranasal sinuses or within the mastoid air cells. MR/MR head/brain wo con IMPRESSION: No acute intracranial abnormality. Mild to moderate chronic microangiopathy.
== END 2022-09-10 16:31 | disposition home or self-care (01) ==
LOC: HO.MRI 16:30
PROVIDERS: PCP Internal Medicine; Visit Provider Internal Medicine
DX: G45.9 Transient cerebral ischemic attack, unspecified (principal)
CPT/HCPCS: 70551

== ENCOUNTER 2022-09-30 14:03 | Outpatient (REF) | payer MEDICARE, SELFPAY ==
--- NOTE | ~2022-09-30 | US_ITS ---
EXAMINATION: US PELVIS COMPLETE CLINICAL INFORMATION: Leiomyoma; postmenopausal patient. COMPARISON: Pelvic ultrasound dated 06/18/2022. TECHNIQUE: Transabdominal and transvaginal imaging were performed. FINDINGS: The uterus is of normal size and echogenicity measuring 7.6 x 4.2 x 5.5 cm. The uterus is anteverted. A regular, homogeneous endometrium is identified measuring 0.6 cm. FIBROIDS: There are 3 fibroids seen. 1. Location: Leftward fundus and body, myometrial. Size: 4.7 x 2.9 x 4.2 cm. Prior: 3.6 x 3.2 x 3.5 cm. Fibroid characteristics: Heterogeneous echotexture. 2. Location: Rightward body, myometrial. Size: 0.7 x 0.6 x 0.8 cm. Prior: 0.7 x 0.5 x 0.9 cm. Fibroid characteristics: Coarsely calcified, with shadowing. 3. Location: Rightward body, myometrial. Size: 0.8 x 0.8 x 1.3 cm. Prior: Not seen. Fibroid characteristics: Coarsely calcified, with shadowing. The right ovary is not visualized. The left ovary measures 1.6 x 0.7 x 1.0 cm for a volume of 0.6 mL. There is no pelvic free fluid. US/US pelvic and transvaginal IMPRESSION: 1. Uterine fibroids are redemonstrated, as detailed. 2. The right ovary is not visualized.
== END 2022-09-30 14:04 | disposition home or self-care (01) ==
LOC: HO.HMGCX 14:03
PROVIDERS: PCP Internal Medicine; Visit Provider Obstetrics & Gynecology
DX: D21.9 Benign neoplasm of connective and other soft tissue, unspecified (principal)
CPT/HCPCS: 76830; 76856

== ENCOUNTER 2022-10-14 10:03 | Outpatient (AMB) | payer MEDICARE, SELFPAY ==
--- NOTE | 2022-10-14 10:04 | MHC.OFFVIS ---
Intake Intake Visit Reasons: U/S results Program Evaluation Consultant Required: No Information Interpreted: non-clinical & clinical Allergies sulfamethoxazole [From Bactrim] Allergy (Intermediate, Verified 10/14/22 10:04) Diarrhea trimethoprim [From Bactrim] Allergy (Intermediate, Verified 10/14/22 10:04) Diarrhea ibuprofen Adverse Reaction (Unknown, Verified 10/14/22 10:04) Gastrointestinal Upset Post menopausal: Yes HPI HPI Comments History of Present Illness Details The patient is presenting for follow-up regarding myoma is a seen on previous pelvic ultrasound. Ultrasound done recently showed the following The uterus is of normal size and echogenicity measuring 7.6 x 4.2 x 5.5 cm. The uterus is anteverted. A regular, homogeneous endometrium is identified measuring 0.6 cm. FIBROIDS: There are 3 fibroids seen. ?1. Location: Leftward fundus and body, myometrial. ?? ? Size: 4.7 x 2.9 x 4.2 cm. Prior: 3.6 x 3.2 x 3.5 cm. ?? ? Fibroid characteristics: Heterogeneous echotexture. ?2. Location: Rightward body, myometrial. ?? ? Size: 0.7 x 0.6 x 0.8 cm. Prior: 0.7 x 0.5 x 0.9 cm. ?? ? Fibroid characteristics: Coarsely calcified, with shadowing. ?3. Location: Rightward body, myometrial. ?? ? Size: 0.8 x 0.8 x 1.3 cm. Prior: Not seen. ?? ? Fibroid characteristics: Coarsely calcified, with shadowing. The right ovary is not visualized. The left ovary measures 1.6 x 0.7 x 1.0 cm for a volume of 0.6 mL. There is no pelvic free fluid. PFSH Medical History Arthritis Back pain Ductal carcinoma of breast Hyperthyroidism No significant medical problems Surgical History H/O colonoscopy History of History of lumpectomy of left breast Family History Mother Metastatic melanoma Social History Household Members: Spouse Alcohol intake: current Alcohol intake frequency: a few times a week Patient Tobacco Use Status: Never used Tobacco Sexual orientation: Straight/Heterosexual Gender identity: Female Female Reproductive History Menstrual Age of Menarche: 14 Review of Systems Const All systems reviewed & are unremarkable except as noted in HPI and below Reports as per HPI and Reports no additional complaints GI Reports no additional complaints Reports no additional complaints Assessment & Plan Assessment & Plan (1) Myoma: Code(s): D21.9 - Benign neoplasm of connective and other soft tissue, unspecified Plan: Discussed with the patient the findings on pelvic ultrasound and the change in the size of the myomas, mild increase, & the risk of myosarcoma; discussed with the patient the options of treatment including expectant management versus hysterectomy; the pros and cons, risks benefits of each approach were discussed with the patient including the fact that in cases of myosarcoma, surgical treatment can lead to early diagnosis and positively affects the prognosis; after further discussion, the patient decided to think about it and get back to me decision regarding repeat ultrasound in 3-6 months versus hysterectomy. All questions answered, the patient verbalized understanding. I spent a total of 20 minutes reviewing the chart, talking to the patient via video and documenting in the medical record. Telehealth Telehealth Location of provider rendering services: practice address Location of patient: address on file Patient Identification confirmed using: Name, : Yes Telehealth method: video Patient verbally consented to treatment: Yes Patient verbally consented to billing insurance company: Yes Patient informed of any privacy concerns related to visit: Yes Coding Level of Care Code Tele Est Pt Level 2 (88962) Diagnoses Myoma D21.9
--- OUTSIDE RECORDS SUMMARY | 2022-10-14 10:05 | XMS_ITS ---
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 Outside Name Role Phone DaphneRodrigo [facility] [phone] PROBLEMS Type Condition ICD9-CM Code TAM93-YH Code Onset Dates Condition Status SNOMED Code Problem Subacute thyroiditis E06.1 Active 85864387 Problem TIA (transient ischemic attack) G45.9 Active [id number] Problem Irritable bowel syndrome without diarrhea K58.9 Active 84705948 ALLERGIES Substance Reaction Event Type Date Status Sulfamethoxazole-TMP DS rash, pruritis, diarrhea Drug Phil rgy Sep, Active ENCOUNTERS Encounter Location Date Diagnosis Rodrigo Serna DO, [address] [id number] Sep, TIA (transient ischemic attack) G45.9 and Ductal carcinoma in situ (DCIS) of left breast D05.12 Rodrigo Serna DO, [address] [id number] Sep, TIA (transient ischemic attack) G45.9 Rodrigo Serna DO, [address] [id number] August, Rodrigo Serna DO, [address] [id number] Jul, Right lower quadrant abdominal pain R10.31 and Ductal carcinoma in situ (DCIS) of left breast D05.12 Rodrigo Serna DO, [address] [id number] Jul, Rodrigo Serna DO, FACP [address], [place] [id number] Jun, Rodrigo Serna DO, [address] [id number] Jun, Rodrigo Serna DO, [address] [id number] Jun, Right upper quadrant abdominal pain R10.11 ; Right lower quadrant abdominal pain R10.31 and Ductal carcinoma in situ (DCIS) of left breast D05.12 Rodrigo Serna DO, FAC [address], [place] [id number] May, Rodrigo Serna DO, [address] [id number] May, Rodrigo Serna DO, [address] [id number] Apr, Rodrigo Serna DO, [address] [id number] Apr, Rodrigo Serna DO, [address] [id number] Apr, Rodrigo Serna DO, [address] [id number] Apr, Rodrigo Serna DO, [address] [id number] Feb, Rodrigo Serna DO, [address] [id number] Feb, Rodrigo Serna DO, [address] [id number] Nov, Subacute thyroiditis E06.1 Rodrigo Serna DO, [address] [id number] Nov, Neck pain on left side M54.2 and Neck pain on right side M54.2 Rodrigo Serna DO, [address] [id number] Nov, Rodrigo Serna DO, [address] [id number] Oct, Rodrigo Serna DO, [address] [id number] Sep, Rodrigo Serna DO, [address] [id number] Jun, Rodrigo Serna DO, [address], [place] [id number] 18 Jun, 2021 Rodrigo Serna DO, [address] [id number] 16 Jun, 2021 Rodrigo Serna DO, [address] [id number] 04 Jun, 2021 Rodrigo Serna DO, [address] [id number] Feb, Rodrigo Serna DO, [address] [id number] Jan, Rodrigo Serna DO, [address] [id number] 08 Dec, 2020 Rodrigo Serna DO, [address] [id number] Dec, Encounter for general adult medical examination without abnormal findings Z00.00 Rodrigo Serna DO, [address] [id number] Jun, Rodrigo Serna DO, [address] [id number] May, Irritable bowel syndrome without diarrhea K58.9 [...] OF CARE Activity Details VITAL SIGNS Weight 144 lbs 2022-09-28 Weight 145 lbs 2022-07-30 Weight 148 lbs 2022-06-02 Weight 136 lbs 2020-12-05 Weight 136 lbs 2020-05-28 Height 65 in 2022-09-28 Height 65 in 2022-07-30 Height 65 in 2022-06-02 Height 65 in 2020-12-10 Height 65 in 2020-12-05 Height 65 in 2020-05-28 BMI 23.96 kg/m2 2022-09-28 BMI 24.13 kg/m2 2022-07-30 BMI 24.63 kg/m2 2022-06-02 BMI 22.63 kg/m2 2020-12-05 BMI 22.63 kg/m2 2020-05-28 Heart Rate 61 /min 2020-12-10 Blood pressure systolic 110 mm Hg Blood pressure diastolic 58 mm Hg 2022-09 MEDICATIONS Medication Instructions Dosage Frequency Start Date End Date Duration Status Calcium 600 + D 600-200 MG-UNIT Orally Once a day 1 tablet with a meal 24h Active Multivitamin - Orally Once a day 1 tablet 24h Active Anastrozole 1 MG Orally Once a day 1 tablet 24h Active Vitamin D (Cholecalciferol ) 25 MCG (1000 UT) Orally Once a day 1 capsule 24h Active LORazepam 1 MG Orally Once a day 1 tablet at bedtime as needed 24h Jun, Active PROCEDURES Procedure Date Ordered Result Body Site COLORECTAL CA SCREEN DOC REV Dec 05, 2020 Scrn cole perf rslts doc Dec 05, 2020 DOC MEDS VERIFIED W/PT OR RE May 28, 2020 BMI<30 AND >=22 CALC & DOCU May 28, 2020 PNEUMOC IMM ORDER/ADMIN Dec 05, 2020 PRES/ABSN URINE INCON ASSESS May 28, 2020 TOBACCO NON-USER Dec 05, 2020 DOC MEDS VERIFIED W/PT OR RE Dec 05, 2020 ANNUAL WELLNESS VST; PPS SUBSQT VST Dec 05, 2020 TOBACCO NON-USER May 28, 2020 BMI<30 AND >=22 CALC & DOCU Dec 05, 2020 RESULTS Name Result Date Reference Range MR head/brain wo con 2022-09-10 Complete Blood Count Auto Diff 2022-09-04 White Blood Count 5.4 4.8-10.8 Red Blood Count 4.28 4.20-5.50 Hemoglobin 13.1 12.0-16.0 Hematocrit 39.6 37.0-47.0 Mean Corpuscular Volume 92.5 80.0 -98.0 Mean Corpuscular Hemoglobin 30.6 27.0-33.0 Mean Corpuscular HGB Conc 33.1 31 .0-35.0 Red Cell Distribution Width 12.5 11.0-16.0 Platelet Count 196 160-400 Mean Platelet Volume 10.3 9.4-12. 3 Neutrophils Percent Auto 64.1 45- 73 Imm Gran Pct Auto 0.6 0.0-0.4 Lymphocytes Percent Auto 19.9 20- 40 Monocytes Percent Auto 13.2 2-11 Eosinophils Percent Auto 1.3 0-4 Basophils Percent Auto 0.9 0-2 NRBC Pct Auto 0.0 0.0-0.2 Neutrophils Absolute Auto 3.5 2. 0-8.3 Imm Gran Abs Auto 0.03 0.00-0.03 Lymphocytes Absolute Auto 1.1 1. 2-4.9 Monocytes Absolute Auto 0.7 0.1- 1.2 Eosinophils Absolute Auto 0.1 0. 0-0.4 Basophils Absolute Auto 0.1 0.0- 0.2 NRBC Abs Auto 0.000 0.0-0.012 Basic Metabolic Panel 2022-09-04 Sodium 141 135-145 Potassium 4.1 3.3-5.1 Chloride 108 96-108 Carbon Dioxide 27 22-29 Anion Gap 10 12-20 Blood Urea Nitrogen 17 9-16 Creatinine 0.74 0.5-1.4 Creatinine Clr Calc Pharmacy 59.3 Estimated Glomerular Filt Rate >60 Glucose Random 89 60-115 Calcium 9.2 8.4-10.2 Lipid Panel 2022-09-04 Triglycerides 45 Cholesterol 194 LDL Cholesterol Calculated 131 HDL Cholesterol 54 Complete Blood Count Auto Diff 2022-09-03 White Blood Count 6.5 4.8-10.8 Red Blood Count 4.25 4.20-5.50 Hemoglobin 13.3 12.0-16.0 Hematocrit 39.2 37.0-47.0 Mean Corpuscular Volume 92.2 80.0 -98.0 Mean Corpuscular Hemoglobin 31.3 27.0-33.0 Mean Corpuscular HGB Conc 33.9 31 .0-35.0 Red Cell Distribution Width 12.6 11.0-16.0 Platelet Count 216 160-400 Mean Platelet Volume 10.1 9.4-12. 3 Neutrophils Percent Auto 69.4 45- 73 Imm Gran Pct Auto 0.6 0.0-0.4 Lymphocytes Percent Auto 18.6 20- 40 Monocytes Percent Auto 9.9 2-11 Eosinophils Percent Auto 0.9 0-4 Basophils Percent Auto 0.6 0-2 NRBC Pct Auto 0.0 0.0-0.2 Neutrophils Absolute Auto 4.5 2. 0-8.3 Imm Gran Abs Auto 0.04 0.00-0.03 Lymphocytes Absolute Auto 1.2 1. 2-4.9 Monocytes Absolute Auto 0.6 0.1- 1.2 Eosinophils Absolute Auto 0.1 0. 0-0.4 Basophils Absolute Auto 0.0 0.0- 0.2 NRBC Abs Auto 0.000 0.0-0.012 Erythrocyte Sedimentation Rate 2022-09-03 Erythrocyte Sedimentation Rate 2 0-20 Comprehensive Met. Panel 2022-09-03 Sodium 138 135-145 Potassium 4.1 3.3-5.1 Chloride 103 96-108 Carbon Dioxide 28 22-29 Anion Gap 11 12-20 Blood Urea Nitrogen 21 9-16 Creatinine 0.93 0.5-1.4 Creatinine Clr Calc Pharmacy 47.2 Estimated Glomerular Filt Rate 59 Glucose Random 96 60-115 Calcium 9.6 8.4-10.2 Bilirubin Total 0.4 0.0-1.0 Aspartate Amino Transferase 19 5-31 Alanine Aminotransferase 18 0-3 1 Total Protein 6.3 6.5-8.0 Albumin Level 4.3 3.5-5.0 Alkaline Phosphatase 62 39-117 Liver Panel 2022-09-03 Bilirubin Total 0.6 0.0-1.0 Bilirubin Direct 0.2 0.0-0.5 Aspartate Amino Transferase 18 5-31 Alanine Aminotransferase 16 0-3 1 Total Protein 6.3 6.5-8.0 Albumin Level 4.2 3.5-5.0 Alkaline Phosphatase 57 39-117 Magnesium 2022-09-03 Magnesium 2.0 1.6-2.6 C Reactive Protein 2022-09-03 C Reactive Protein < 0.10 < or = 0. 50 UA CC w/rflx Micro + Cult 2022-09-03 Color Urine Yellow Appearance Urine Clear PH 6.5 5.0-9.0 Glucose Urine UA Negative Negative Urine Blood Negative Negative Specific [place] - Urine 1.010 1.0 05-1.025 Urine Protein Negative Neg-Trace Urine Ketones Negative Negative Nitrite Urine Negative Negative Leukocyte Esterase Urine Negative Neg ative MAMMOGRAM, SCREENING Liver Panel 2022-06-18 Bilirubin Total [...] Negative Negative Urine Blood Negative Negative Specific [place] - Urine <= 1.005 1.0 05-1.025 Urine [...] NEG NEG Urine Blood NEG NEG Specific [place] - Urine 1.015 1.0 05-1.025 Urine Protein NEG NEG-TRACE Urine Ketones NEG NEG Nitrite Urine NEG NEG Leukocyte Esterase Urine TRACE NEG RBC Urine 0 0 WBC Urine 0-2 0-4 Squamous Epithelial Cell Urine TRACE Bacteria Urine NONE Comprehensive [place]. Panel Fast 2020-12-17 Sodium 142 135-145 Potassium [...] SCREENING REASON FOR VISIT 2 month f/u, Follow up breast cancer, left, DCIS, s/p lumpectomy and RT, now on HT, Update and request, Update, right sided abdominal pain, 1 month [...] of Group No MEDICARE [address] [place] [address] MEDICARE self Jasmina Aponte [id number] MEDEX [address] [facility] [address] MEDEX self Jasmina Aponte [id number]
== END 2022-10-14 13:57 | disposition home or self-care (01) ==
LOC: HO.HWS 10:03
PROVIDERS: PCP Internal Medicine; Visit Provider Obstetrics & Gynecology
DX: D21.9 Benign neoplasm of connective and other soft tissue, unspecified (principal)
CPT/HCPCS: 99213

== ENCOUNTER → 2022-10-14 10:03 | Outpatient (BNVA) | payer MEDICARE, SELFPAY | PROVIDERS: PCP Internal Medicine; Visit Provider Obstetrics & Gynecology | DX: D25.9 Leiomyoma of uterus, unspecified (principal) | CPT/HCPCS: Q3014 ==

== ENCOUNTER 2023-10-14 11:11 | Emergency (ER) | payer MEDICARE, SELFPAY ==
--- NOTE | ~2023-10-14 | XR_ITS ---
EXAMINATION: XR HIP, RIGHT CLINICAL INFORMATION: Right hip pain COMPARISON: None available. TECHNIQUE: Frontal x-ray of the pelvis, Frontal and Frog leg lateral x-rays of right hip. FINDINGS: BONES: Bony structures are intact. There is no focal bone destruction or periosteal reaction seen. JOINTS: Alignment of hip joint is normal. SOFT TISSUE: Soft tissue is normal. No radiopaque foreign body or abnormal air collection is seen. XR/XR hip RT w PEL1V IMPRESSION: 1. Normal pelvis x-ray. No fracture or dislocation is seen. 2. Normal x-ray of right hip. No fracture or dislocation or signs of avascular necrosis are seen.
--- NOTE | ~2023-10-14 | XR_ITS ---
EXAMINATION: XR LUMBOSACRAL SPINE CLINICAL INFORMATION: Right hip pain COMPARISON: None available. TECHNIQUE: Three views of the lumbosacral spine. FINDINGS: Levoconvex scoliosis with mild to moderate multilevel degenerative disc disease. Advanced facet arthropathy at L4-L5 with slight anterolisthesis, and at L5-S1. No acute osseous abnormality. XR/XR lumbar spine 2-3V IMPRESSION: Levoconvex scoliosis with mild to moderate multilevel degenerative disc disease. Advanced facet arthropathy at L4-L5 with slight anterolisthesis.
--- NOTE | 2023-10-14 11:21 | ED_ITS ---
HPI - Extremity Injury (Lower) General Chief Complaint: Extremity Injury, Lower Stated Complaint: R hip pain Time Seen by Provider: 10/14/23 11:34 Source: patient and family (patient's ) Mode of arrival: ambulatory Limitations: no limitations History of Present Illness ED Provider: Blank Garcia PA-C HPI Narrative: Patient is a 73 year old assigned female at with a history of herpetic neuralgia to the right abdomen / hip / low back, presenting to the emergency department today with right buttock / hip / and abdominal pain. Patient states that over the last 3 days she has been having right hip pain that is worse with sitting and feels different than her previous right sided pain. Patient denies any dizziness, lightheadedness, abdominal pain, nausea, vomiting, fever, chills, blurry vision, double vision, loss of vision, chest pain, difficulty breathing, shortness of breath, night sweats, pain with urination, increased urinary frequency, increased urinary urgency, blood in her urine or stool, syncope or a near syncopal episode, recent trauma or falls, bowel incontinence, bladder incontinence, or any other complaints at this time. Onset (ago): day(s) (3) Severity scale (1-10): 4 Relieving factors: nothing Exacerbating factors: other (sitting) Related Data Home Medications ?Medication ?Instructions ?Recorded ?Confirmed calcium carb-ergocalciferol (vit 1 tab PO DAILY 09/15/20 09/03/22 D2) 600 mg calcium-200 unit tablet multivitamin 1 tab PO DAILY 09/15/20 09/03/22 anastrozole 1 mg tablet 1 mg PO DAILY 11/25/21 09/03/22 cholecalciferol (vitamin D3) 25 25 mcg PO DAILY 11/25/21 09/03/22 mcg (1,000 unit) capsule lorazepam 1 mg tablet 1 mg PO BEDTIME PRN Insomnia 02/19/22 09/03/22 Previous Rx's ?Medication ?Instructions ?Recorded aspirin 81 mg tablet,delayed 81 mg PO DAILY 30 days #30 tabs 09/04/22 release naproxen 500 mg tablet 500 mg PO BID 7 days #14 tabs 10/14/23 omeprazole 20 mg capsule,delayed 20 mg PO BID 7 days #14 caps 10/14/23 release prednisone 20 mg tablet 20 mg PO DAILY 12 days #26 tabs 10/14/23 Allergies Allergy/AdvReac Type Severity Reaction Status Date / Time sulfamethoxazole Allergy Intermediate Diarrhea Verified 10/14/23 11:25 [From Bactrim] trimethoprim [From Bactrim] Allergy Intermediate Diarrhea Verified 10/14/23 11:25 ibuprofen AdvReac Unknown Gastrointestinal Verified 10/14/23 11:25 Upset Review of Systems 2 Constitutional: Constitutional: Reports no additional constitutional complaints, Denies chills, Denies fever(s) and Denies night sweats Eyes: Eyes: Reports no additional eye complaints, Denies blurry vision, Denies change in vision, Denies diplopia, Denies eye discharge, Denies loss of vision and Denies eye pain ENT: Denies dizziness Cardiovascular: Cardiovascular: Reports no additional cardiovascular complaints, Denies chest pain, Denies lightheadedness, Denies Loss of Consciousness and Denies dyspnea Respiratory: Respiratory: Reports no additional respiratory complaints and Denies dyspnea Gastrointestinal: Gastrointestinal: Reports no additional gastrointestinal complaints, Denies abdominal pain, Denies melena, Denies hematochezia, Denies change in bowel habits and Denies change in stool character Genitourinary: Genitourinary: Denies hematuria, Denies urinary frequency, Denies dysuria, Denies urinary incontinence, Denies urinary hesitancy and Denies urinary urgency Musculoskeletal: Musculoskeletal: Reports no additional musculoskeletal complaints, Denies numbness and Denies tingling Comments: right hip pain radiating into right low back pain and right lower abdomen Neurologic: Denies dizziness, Denies loss of vision, Denies numbness and Denies tingling Psychiatric: Psychiatric: Reports no additional psychiatric complaints Endocrine: Endocrine: Reports no additional endocrine complaints Hematologic/Lymphatic: Hematologic/Lymphatic: Reports no additional hematologic/lymphatic complaints Allergic/Immunologic: Allergic/Immunologic: Reports no additional allergic/immunologic complaints PMFSH Past Medical History Attestation statement: The following information was validated with the patient. (all information validated with the patient's ) Source: old records reviewed, obtained from family (patient's provided additional history and confirmed the history provided by the patient ) and nursing notes reviewed Medical History Back pain Arthritis Ductal carcinoma of breast Hyperthyroidism No significant medical problems Surgical History History of lumpectomy of left breast History of H/O colonoscopy Family History Family History Mother Metastatic melanoma Social History Social History Household Members: Spouse Alcohol intake: current Alcohol intake frequency: a few times a week Patient Tobacco Use Status: Never used Tobacco Advance Directives: Yes Advance Directives Information Provided: Yes Advance Directives on File: No Do you have a plan to hurt others: No Plan Sexual orientation: Straight/Heterosexual Gender identity: Female Physical Exam 2 Vital Signs: Vital Signs: Last Vital Signs Temp 97.3 F 10/14/23 13:41 Pulse 61 10/14/23 13:41 Resp 20 10/14/23 13:41 BP 147/65 H 10/14/23 13:41 Pulse Ox 99 10/14/23 13:41 O2 Del Method Room Air 10/14/23 13:41 BMI result Body Mass Index 24.9 Const: General: cooperative, no acute distress, alert and awake Nutritional Appearance: well nourished Orientation/consciousness: patient oriented x3 Limitations: no limitations HEENT: Head: Yes normal to inspection and Yes atraumatic Ears: hearing grossly normal bilaterally and external ears normal General nose exam: Normal external nose present, no nasal discharge noted and no epistaxis Face and sinus: Yes normal facial exam, No abrasion and No laceration Mouth: Normal oral and palatal mucosa present, no drooling and no muffled voice Eyes: General: appearance normal, both eyes and all related structures P eriorbital: periorbital findings normal Eyelids: Yes eyelids normal C onjunctivae: conjunctivae normal Pupils: Equal, round and reactive pupils present EOM: EOMs intact bilaterally Neck: Neck: Yes normal visual inspection, Yes full ROM and Yes no lymphadenopathy Chest: Chest palpation & inspection: normal inspection of the chest Resp: Effort & Inspection: normal respiratory effort and able to speak in complete sentences GI: Inspection: Yes normal to inspection Back/Spine/Pelvis: Other: significant pain with palpation over the ischiogluteal bursa Neuro: General: patient oriented x3 and moves all extremities Cranial nerves: Yes Equal, round and reactive pupils present Cognition (Neuro): n ormal cognition Extrem: General: Yes normal to inspection, Yes full ROM and Yes capillary refill normal Psych: Appearance: grossly normal Mental Status: mental status grossly normal Affect: normal affect Attitude: cooperative Thought process: N ormal thought process present Thought content: Normal thought content present Insight: Good insight present (Psych) Course Course Course Narrative: This is an RME performed by Venkat Al CNP: Additional HPI, ROS, PE not included below will be deferred to primary provider. Patient is a 73-year-old female who presents emergency department for evaluation of R hip pain, points to RLQ/R lateral hip. Reports pain is worse while she is sitting. Pain is intermittent, with intense severity when it is at its maximum. Reports constipation earlier this week relieved with Dulcolax. Denies genitourinary symptoms. Admits to nausea today. Reports she was able to play tennis last night without difficulty. A very hard time sleeping. She admits to a history of similar pain in this location last year which she reports was thought to be secondary to internal shingles. She had an extensive workup last year, underwent exploratory lap and appendectomy, MRI imaging, without abnormal findings. 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 Plan: labs, urinalysis Medications Administered Discontinued Medications Generic Name Dose Route Start Last Admin Trade Name Cain PRN Reason Stop Dose Admin Ketorolac Tromethamine 15 mg 10/14/23 12:42 10/14/23 12:58 Ketorolac Tromethamine 15 Mg/Ml Vial IM 10/14/23 12:43 15 mg ONCE ONE Administration Methylprednisolone Sodium Succinate 60 mg 10/14/23 12:43 10/14/23 12:57 Methylprednisolone Sod Succ 125 Mg/2 Ml Vial IM 10/14/23 12:44 60 mg ONCE ONE Administration Medical Decision Making Medical Decision Making [facility] Narrative: Patient is a 73 year old assigned female at with a history of right herpetic neuralgia to the right abdomen / hip / low back, presenting to the emergency department today with right buttock / hip / and abdominal pain. Patient's physical exam was as noted in the physical exam portion of this note and consistent with ischiogluteal bursitis. Patient's blood work was unremarkable. Patient's urine showed no acute process. Patient's right hip and lumbar spine x-rays showed no acute process. I explained my physical exam findings as well as all test results to the patient and the patient's . I answered all questions asked by the patient and the patient's . I stressed the importance of the patient taking her medication as directed (either prescribed or as the over the counter packaging recommends). I stressed the importance of the patient following up with her primary care provider and the orthopedic group. I stressed the importance of the patient returning to the emergency department immediately if her symptoms were to worsen or if she were to develop any dizziness, shortness of breath, difficulty breathing, chest pain, blurry vision, loss of vision, nausea, vomiting, abdominal pain, fever, chills, back pain, or any other complaints. Patient and the patient's verbalized agreement and understanding with this treatment plan and discharge. Differential Diagnosis Differential Diagnoses: The differential diagnosis associated with the presentation includes Ischiogluteal bursitis Hip bursitis Hip pain Low back pain Bulging disc Admission/Observation Consideration of admission/observation: Escalation of care including admission/observation considered Patient would have been admitted to the hospital had her work up had any findings where hospital admission was appropriate and her clinical presentation warranted hospital admission. Lab Data [facility] Lab Attestation statement: I reviewed the patient's lab results. My interpretation of these results are in the [facility] Rationale portion of this note. 10/14/23 11:36 10/14/23 11:36 Labs: Lab Results 10/14/23 10/14/23 Range/Units 11:36 12:17 WBC 6.4 (4.8-10.8) X10*3/uL RBC 4.67 (4.20-5.50) X10*6/uL Hgb 15.0 (12.0-16.0) g/dl Hct 43.9 (37.0-47.0) % MCV 94.0 (80.0-98.0) fL MCH 32.1 (27.0-33.0) pg MCHC 34.2 (31.0-35.0) g/dl RDW 13.4 (11.0-16.0) % Plt Count 250 D (160-400) X10*3/uL MPV 10.0 (9.4-12.3) fL Immature Gran % (Auto) 0.3 (0.0-0.4) % Neut % (Auto) 66.5 (45-73) % Lymph % (Auto) 24.7 (20-40) % [place] % (Auto) 7.2 (2-11) % Eos % (Auto) 0.8 (0-4) % Baso % (Auto) 0.5 (0-2) % Lymph # (Auto) 1.6 (1.2-4.9) X10*3/uL [place] # (Auto) 0.5 (0.1-1.2) X10*3/uL Eos # (Auto) 0.1 (0.0-0.4) X10*3/uL Baso # (Auto) 0.0 (0.0-0.2) X10*3/uL Abs Immat Gran (auto) 0.02 (0.00-0.03) X10*3/uL Absolute Neuts (auto) 4.3 (2.0-8.3) x10*3/uL Absolute Nucleated RBC 0.000 (0.0-0.012) X10*3/uL Nucleated RBC % (auto) 0.0 (0.0-0.2) /100WBC Sodium 140 (135-145) mmol/L Potassium 4.2 (3.3-5.1) mmol/L Chloride 103 (96-108) mmol/L Carbon Dioxide 27 (22-29) mmol/L Anion Gap 14 (12-20) BUN 17 H (9-16) mg/dL Creatinine 0.81 (0.5-1.4) mg/dL Estim Creat Clear Calc 57.7 Estimated GFR > 60 Random Glucose 106 (60-115) mg/dL Calcium 10.7 H D (8.4-10.2) mg/dL Total Bilirubin 0.7 (0.0-1.0) mg/dL AST 27 (5-31) U/L ALT 26 (0-31) U/L Alkaline Phosphatase 66 (39-117) U/L Total Protein 7.6 (6.5-8.0) g/dL Albumin 4.9 (3.5-5.0) g/dL Urine Color Yellow Urine Appearance Clear Urine pH 6.0 (5.0-9.0) Ur Specific [place] 1.020 (1.005-1.025) Urine Protein Negative (Neg-Trace) mg/dL Urine Glucose (UA) Negative (Negative) mg/dL Urine Ketones Negative (Negative) mg/dL Urine Blood Negative (Negative) Urine Nitrite Negative (Negative) Ur Leukocyte Esterase Negative (Negative) Independent Interpretation I performed an independent interpretation of an: Plain X-Ray Interpretation: My interpretation is in agreement with the radiologist's impression of these imaging studies. - EXAMINATION: XR LUMBOSACRAL SPINE CLINICAL INFORMATION: Right hip pain COMPARISON: None available. TECHNIQUE: Three views of the lumbosacral spine. FINDINGS: Levoconvex scoliosis with mild to moderate multilevel degenerative disc disease. Advanced facet arthropathy at L4-L5 with slight anterolisthesis, and at L5-S1. No acute osseous abnormality. XR/XR lumbar spine 2-3V IMPRESSION: Levoconvex scoliosis with mild to moderate multilevel degenerative disc disease. Advanced facet arthropathy at L4-L5 with slight anterolisthesis. Dictated By: Tico Diaz MD Signed By: Electronically signed by Tico Diaz MD 10/14/23 1349 - EXAMINATION: XR HIP, RIGHT CLINICAL INFORMATION: Right hip pain COMPARISON: None available. TECHNIQUE: Frontal x-ray of the pelvis, Frontal and Frog leg lateral x-rays of right hip. FINDINGS: BONES: Bony structures are intact. There is no focal bone destruction or periosteal reaction seen. JOINTS: Alignment of hip joint is normal. SOFT TISSUE: Soft tissue is normal. No radiopaque foreign body or abnormal air collection is seen. XR/XR hip RT w PEL1V IMPRESSION: 1. Normal pelvis x-ray. No fracture or dislocation is seen. 2. Normal x-ray of right hip. No fracture or dislocation or signs of avascular necrosis are seen. Dictated By: Tamy Palafox Signed By: Electronically signed by Tamy Palafox 10/14/23 4917 Radiology Impression Discussion of test interpretation with radiology: I have reviewed the radiologist's reading. Independent Historian Clinical information obtained from an independent historian. History obtained from or confirmed by: Spouse (patient's provided additional history and confirmed the history provided by the patient) Prescription Management I considered prescription management with: Pain Medication (patient prescribed pain medication) Discharge Plan Discharge Clinical Impression: Ischiogluteal bursitis of right side Patient Disposition: Home, Self-Care Instructions: Hip Bursitis (ED) Additional Instructions: Take your medication as prescribed starting on 10/15/2023. If you begin to have an upset stomach, STOP the Naproxen. Use a donut type cushion for sitting. Follow up with your primary care provider and Dr. Bhakta through the [facility] orthopedic group. If they are unable to see you for whatever reason - follow up with the [facility] pain group. You have been provided both numbers to contact. Return to the emergency department immediately if your symptoms worsen or if you develop any dizziness, shortness of breath, difficulty breathing, chest pain, blurry vision, loss of vision, nausea, vomiting, abdominal pain, fever, chills, back pain, or any other complaints. - Additional information about your diagnosis: Ischiogluteal bursitis???The ischiogluteal (ischial) bursa is located between the ischial tuberosity and the gluteus tegan muscle. Associated bursitis may present with pain in the upper thigh or gluteal region following repeated movement of the gluteus tegan muscle and/or prolonged sitting (thus leading to this condition being known as francis's bottom ). It is therefore associated with a wide range of activities and situations, including cycling, horseback riding, canoeing, tractor driving, and prolonged sitting. Ischiogluteal bursitis can cause symptoms suggestive of sciatica due to its proximity to the sciatic nerve. - Please see the information below about our Patient Portal. If you are not yet enrolled in the [facility] Patient Portal, you will receive an enrollment email invitation following your visit to any [facility] care setting. You may also self-enroll in the Patient Portal by visiting our website: [email or web address] The following information is required to access the Patient Portal: - Your [facility] Medical Record Number - Your personal home email address (must match what is in your electronic medical record, Registration staff can assist with this) - Name - Date of Capabilities of the Patient Portal: - Message some providers - View upcoming appointments - Access your health summary, medical history, and visit history - View current conditions and allergies - View procedure and lab results - View your medications, including guidelines, side effects, and precautions - Complete pre-appointment questionnaires requested by your provider - Ready summary reports of your office visits and procedures To access the Patient Portal Mobile Dany, follow these directions: - Search [employer] in the Dany Store or [employer] Store - Download the Dany - Search for [facility] - Enter your login/password Prescriptions: New prednisone 20 mg tablet 20 mg PO DAILY 12 Days Qty: 26 0RF Rx Instructions: Take 3 tablets for 5 days THEN; Take 2 tablets for 4 days THEN; Take 1 tablet for 3 days naproxen 500 mg tablet 500 mg PO BID 7 Days Qty: 14 0RF omeprazole 20 mg capsule,delayed release(DR/EC) 20 mg PO BID 7 Days Qty: 14 0RF No Action multivitamin Tablet 1 tab PO DAILY calcium carbonate-vitamin D2 600 mg calcium- 200 unit Tablet 1 tab PO DAILY aspirin 81 mg Tablet,Delayed Release (Dr/Ec) 81 mg PO DAILY 30 Days Qty: 30 0RF lorazepam 1 mg tablet 1 mg PO BEDTIME PRN (Reason: Insomnia) anastrozole 1 mg tablet 1 mg PO DAILY cholecalciferol (vitamin D3) 25 mcg (1,000 unit) capsule 25 mcg PO DAILY Referrals: [facility] Orthopedic Surgeons [Provider Group] (Call to establish and follow up with Dr. Bhakta. ) [facility] Pain Management [Provider Group] (If Dr. Bhakta can't get you in - call to establish and follow up with the pain group. ) Rodrigo Serna DO [Primary Care Provider] - Interventions: ED Discharge Assessment Last Done: 10/14/23 13:41 Discharge Date/Time: 10/14/23 13:42 Print Language: Namibian
[2023-10-14 11:22] VITALS: BP 147/65; PULSE 61; RESP 20; TEMP 36.3; O2SAT 99; BMI 24.9
[2023-10-14 11:41] LABS: MANUAL DIFF FLAG NO
--- OUTSIDE RECORDS SUMMARY | 2023-10-14 11:41 | XMS_ITS | Continuity of Care Document ---
Author Organization [facility] [employer] TE[employer]ISTANT Oncolog y Address [address] [place] [id number]- Care Team Providers Care Armature Coil Winder Name Role Phone Daphne Rodrigo MOORE Primary Care Physician Encounter [facility] Date(s): 10/25/22 - 11/24/22 [facility] [employer]IST[employer] Oncology [address] [place] [id number] Allergies, Adverse Reactions, Alerts Substance Reaction Severity Status Bactrim gi, rash Persistent Severe Active Vicodin n/v Persistent Severe Active Adhesive Bandage 1, 2 itching Persistent Moderate Active 1steri strips 2Tegaderm Medications anastrozole 1 mg oral tablet 1 tablet = 1 mg, By Mouth, Daily, 0 Refills, Maintenance, 01/26/22 11:46:00 EDT, Partial fill upon patient request if the prescription is for a schedule II opioid drug. Start Date: 01/26/22 Status: Ordered anastrozole 1 mg oral tablet See Instructions, TAKE 1 TABLET BY MOUTH EVERY DAY, # 90 tablet, 3 Refills, Maintenance, 09/14/22 11:21:00 EDT, [id number], 163.4, cm, 08/03/22 11:43:00 EDT, Height, 63.6, kg, 01/26/22 11:20:00 EDT, Dry Weight Start Date: 09/14/22 Status: Ordered Calcium Citrate = 315 mg, By Mouth, 0 Refills, Maintenance, 08/26/21 9:37:00 EDT, Partial fill upon patient requestif the prescription is for a schedule II opioid drug. Start Date: 08/26/21 Status: Ordered Misc Rx Refills 0, Maintenance, vitamin D 1250 mg, 08/26/21 9:38:00 EDT, Supply Start Date: 08/26/21 Status: Ordered Multivitamin Daily, 0 Refills, Maintenance, 06/23/21 13:18:00 EDT, Partial fill upon patient request if the prescription is for a schedule II opioid drug. Start Date: 06/23/21 Status: Ordered nystatin topical 609426 u/gm cream 1 applicator, Topically, 3 times a day, # 30 Gm, 1 Refills, Maintenance, 10/13/21 11:13:00 EDT, [facility]/pharmacy #[id number], Partial fill upon patient request if the prescription is for a schedule II opioid drug., 1 applicator Topically 3 times a day, 163.4, c... Start Date: 10/13/21 Status: Ordered Vitamin D 24907 iu oral capsule 50,000 International_Units, By Mouth, Daily, Refills 0, Maintenance, 08/03/22 11:46:00 EDT, Partialfill upon patient request if the prescription is for a schedule II opioid drug. 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
--- OUTSIDE RECORDS SUMMARY | 2023-10-14 11:41 | XMS_ITS | Continuity of Care Document ---
Author Organization [facility] [employer] Oncolog y Address [address] [place] [id number]- Care Team Providers Care Time Study Clerk Name Role Phone Rodrigo Serna DO Primary Care Physician [phone] En[place] [facility] [place] [place] [id number] Date(s): 07/12/23 - 08/11/23 [facility] [employer] ASS[employer] Oncology [address] [place] [id number]- Attending Physician: Matt Leigh Admitting Physician: Matt Leigh Referring Physician: AdmtrMatt Allergies, Adverse Reactions, Alerts Substance Reaction Severity [...] DAY, # 90 tablet, 3 Refills, Maintenance, 03/02/23 16:23:00 EST, [id number], 162.4, cm, 03/02/23 16:06:00 EST, Height, 65.3, kg, 11/18/22 14:13:00 EDT, Dry Weight Start Date: 03/02/23 Status: Ordered Calcium Citrate = 315 mg, [...] Start Date: 06/23/21 Status: Ordered nystatin topical 438658 u/gm cream 1 applicator, Topically, 3 times a day, # 30 Gm, 1 Refills, Maintenance, 10/13/21 11:13:00 EDT, [facility]/pharmacy #[id number], Partial fill upon patient request if the prescription is for a schedule II opioid drug., 1 applicator Topically 3 times a day, 163.4, c... Start Date: 10/13/21 Status: Ordered Vitamin D 88663 iu oral capsule 50,000 International_Units, By Mouth, [...] Reference Physician Member Role: PCP Address: Address: [address] [place] [address] [place] [address]- Care Team Related Persons Name: LINDSEY NICHOLS Address: home [address] [place] [id number]
--- OUTSIDE RECORDS SUMMARY | 2023-10-14 11:42 | XMS_ITS | Continuity of Care Document ---
Author Organization [facility] ter Address [address] [place] [address]- Care Team Providers Care Airworthiness Safety Inspector Name Role Phone Rodrigo Serna DO Primary Care Physician [place] [facility] [id number] Date(s): 12/21/22 - 02/18/[address] [id number] Attending Physician: Blanquita Kan MD Admitting Physician: Blanquita Kan MD Referring Physician: Blanquita Kan MD Allergies, Adverse Reactions, Alerts Substance Reaction Severity Status Bactrim gi, rash Persistent Severe Active Adhesive Bandage 1, 2 itching Persistent Moderate Active Vicodin n/v Persistent Severe Active 1steri strips 2Tegaderm Medications anastrozole 1 [...] tablet, 3 Refills, Maintenance, 09/14/22 11:21:00 EDT, [facility] STORE 94502, 163.4, cm, 08/03/22 11:43:00 EDT, Height, 63.6, [...] Start Date: 06/23/21 Status: Ordered nystatin topical 175059 u/gm cream 1 applicator, Topically, 3 times a day, # 30 Gm, 1 Refills, Maintenance, 10/13/21 11:13:00 EDT, [facility]/pharmacy #[id number], Partial fill upon patient request if the prescription is for a schedule II opioid drug., 1 applicator Topically 3 times a day, 163.4, c... Start Date: 10/13/21 Status: Ordered Vitamin D 63566 iu oral capsule 50,000 International_Units, By Mouth, [...] Reference Physician Member Role: PCP Address: Address: [address] [place] [address] [place] [address]- Care Team Related Persons Name: LINDSEY NICHOLS Address: home [address] [place] [address]
--- OUTSIDE RECORDS SUMMARY | 2023-10-14 11:42 | XMS_ITS | Continuity of Care Document ---
Author Organization 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 Oncolog y Address [address] [place] [address]- Care Team Providers Care Rotoformer Backtender Name Role Phone Rodrigo Serna DO Primary Care Physician Encounter [facility] [place] Date(s): 12/14/22 - 01/13/23 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 Oncology [address] [place] [address] Allergies, Adverse Reactions, Alerts Substance Reaction Severity [...] tablet, 3 Refills, Maintenance, 09/14/22 11:21:00 EDT, [facility] STORE 95192, 163.4, cm, 08/03/22 11:43:00 EDT, Height, 63.6, [...] Start Date: 06/23/21 Status: Ordered nystatin topical 588518 u/gm cream 1 applicator, Topically, 3 times a day, # 30 Gm, 1 Refills, Maintenance, 10/13/21 11:13:00 EDT, [facility]/pharmacy #[id number], Partial fill upon patient request if the prescription is for a schedule II opioid drug., 1 applicator Topically 3 times a day, 163.4, c... Start Date: 10/13/21 Status: Ordered Vitamin D 92961 iu oral capsule 50,000 International_Units, By Mouth, [...] Reference Physician Member Role: PCP Address: Address: [address] [place] [address] [place] [address]- Care Team Related Persons Name: LINDSEY NICHOLS Address: home [address] [place] [address]
--- OUTSIDE RECORDS SUMMARY | 2023-10-14 11:42 | XMS_ITS | Continuity of Care Document ---
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 [address] [place] [id number] Attending Physician: Blanquita Kan MD Admitting Physician: Blanquita Kan MD Referring Physician: Cb Fierro MD Allergies, Adverse Reactions, Alerts Substance Reaction [...] tablet, 3 Refills, Maintenance, 09/14/22 11:21:00 EDT, [facility] STORE 01260, 163.4, cm, 08/03/22 11:43:00 EDT, Height, 63.6, [...] Start Date: 06/23/21 Status: Ordered nystatin topical 122975 u/gm cream 1 applicator, Topically, 3 times a day, # 30 Gm, 1 Refills, Maintenance, 10/13/21 11:13:00 EDT, [facility]/pharmacy #[id number], Partial fill upon patient request if the prescription is for a schedule II opioid drug., 1 applicator Topically 3 times a day, 163.4, c... Start Date: 10/13/21 Status: Ordered Vitamin D 25927 iu oral capsule 50,000 International_Units, By Mouth, [...] Reference Physician Member Role: PCP Address: Address: [address] [place] [address] [place] [address]- Care Team Related Persons Name: LINDSEY NICHOLS Address: home [address] [place] [address]
--- OUTSIDE RECORDS SUMMARY | 2023-10-14 11:42 | XMS_ITS | Patient Health Record ---
Author Organization Rodrigo Serna DO, FACP Address [address] [place] [id number] Care Team Providers Care Fuel Efficient Aircraft Designer Name Role Phone Rodrigo Serna Primary Care Provider [phone] ALLERGIES Allergen (clinical drug ingredient) Drug/Non Drug Allergy documented on EMR Reaction Allergy Type Onset Date Status Sulfamethoxazole-T MP DS rash, pruritis, diarrhea Drug Allergy Active REASON FOR REFERRAL No Information MEDICATIONS Medication SIG (Take, Route, Frequency, Duration) Notes Start Date End Date Status Calcium 600 + D 600-200 MG-UNIT 1 tablet with a meal Orally Once a day Active Multivitamin - 1 tablet Orally Once a day Active LORazepam 1 MG 1 tablet at bedtime as needed Orally Once a day 06/19/2021 Active Anastrozole 1 MG 1 tablet Orally Once a day Active Vitamin D (Cholecalciferol) 25 MCG (1000 UT) 1 capsule Orally Once a day Active IMMUNIZATIONS Vaccine Route Administration Date Status Comme nts PCV 13 Unknown 07/08/2016 Administered TDaP Unknown 06/07/2016 Administered COVID-19 Pfizer Bivalent Unknown 12/08/2021 Administere d Flu-aIIV4 Unknown 12/26/2020 Administered Influenza Quad Unknown 02/02/2016 Administered Influnza High Dose Quad Unknown 12/15/2019 Administered COVID-19 Pfizer BioNTech Unknown 12/26/2020 Administere d COVID-19 Pfizer BioNTech Unknown 06/25/2020 Administere d Zoster Vaccine Unknown 06/13/2015 Administered Influenza Quad Unknown 01/04/2019 Administered COVID-19 Pfizer BioNTech Unknown 06/04/2020 Administere d COVID-19 Pfizer BioNTech Unknown 07/05/2021 Administere d Influenza High Dose Unknown 01/16/2017 Administered Influenza High Dose Unknown 01/27/2018 Administered Flu-aIIV4 Unknown 12/25/2021 Administered COVID-19 Pfizer Bivalent Unknown 07/29/2022 Administere d SOCIAL HISTORY Tobacco Use: Social History Observation Description Date Details (start date - stop date) Never Smoker NA - NA Sex Assigned At : Social History Observation Description Sex Assigned At Unknown Tobacco Use/Smoking Question Answer Notes Patient is a nonsmoker Additional Findings: Tobacco Non-User Cu rrent non-smoker, currently using no form of tobacco Alcohol Screen Question Answer Notes Did you have a drink contain ing alcohol in the past year? Yes How often did you have a dri nk containing alcohol in the past year? 4 or more times a week (4 points) How many drinks did you have on a typical day when you were drinking in the past year? 1 or 2 drinks (0 point) How often did you have 6 or more drinks on one occasion in the past year? Never (0 point) Points 4 Interpretation Positive PROBLEMS Problem Type ICD Code Onset Dates Problem Status W/U Status Risk SNOMED Code Notes Problem Irritable bowel syndrome without diarrhea (K58.9) Active confirmed 35183090 Problem Subacute thyroiditis (E06.1) Active confirmed 74614511 Problem TIA (transient ischemic attack) (G45.9) Active confirmed 258304437 Problem Malignant neoplasm of female breast, unspecified estrogen receptor status, unspecified laterality, unspecified site of breast (C50.919) Active confirmed 336336260 Encounters Encounter Location Date Provider Diagnosis Rodrigo Serna DO [address] [id number] 08/09/2023 Rodrigo Serna DO [address] [id number] 09/07/2023 Rodrigo Serna DO [address] [id number] 02/08/2023 Rodrigo Serna Malignant neoplasm o f female breast, unspecified estrogen receptor status, unspecified laterality, unspecified site of breast C50.919 Rodrigo Serna DO [address] [id number] 09/05/2023 Rodrigo Serna ASSESSMENTS Encounter Date Diagnosis Assessment Notes Treatment Notes Treatment Clinical Notes 02/08/2023 Malignant neoplasm of female breast, unspecified estrogen receptor status, unspecified laterality, unspecified site of breast (ICD-10 - C50.919) PLAN OF TREATMENT Next Appt Details Provider Name:Rodrigo Antonio tasha, 10/18/2023 03:45:00 PM, [address] [place] [address], [place], [place], [id number], Insurance Providers Payer Name Payer Address Payer Phone Subscriber Number Group Number Insured Name Patient Relationship to Insured Coverage Start Date Coverage End Date MEDICARE [address] [place] [phone] [id number] Marilou Aponte Self - patient is the insured MEDEX [address] [place] [address] [phone] [id number] Marilou Aponte Self - patient is the insured MEDICAL (GENERAL) HISTORY Medical History History ICD Code irritable bowel syndrome breast cancer, left, DCIS, s/p lumpectom y and RT, now on HT Surgical History Surgery Date(Month/Year) tonsillectomy section times 2 appendectomy, laparoscopic
--- OUTSIDE RECORDS SUMMARY | 2023-10-14 11:42 | XMS_ITS | Continuity of Care Document ---
Author Organization [facility] REPRODUCTIVE HEALTHCARE ASSISTANT Oncolog y Address [address] [place] [address]- Care Team Providers Care Chain Saw Driver Name Role Phone Rodrigo Serna DO Primary Care Physician [phone] Encounter [facility] [place] Date(s): 12/21/22 - 01/20/23 [facility] REPRODUCTIVE HEALTHCARE ASSISTANT Oncology [address] [place] [address] Allergies, Adverse Reactions, Alerts Substance Reaction [...] tablet, 3 Refills, Maintenance, 09/14/22 11:21:00 EDT, [facility] STORE 07977, 163.4, cm, 08/03/22 11:43:00 EDT, Height, 63.6, [...] Start Date: 06/23/21 Status: Ordered nystatin topical 947500 u/gm cream 1 applicator, Topically, 3 times a day, # 30 Gm, 1 Refills, Maintenance, 10/13/21 11:13:00 EDT, [facility]/pharmacy #[id number], Partial fill upon patient request if the prescription is for a schedule II opioid drug., 1 applicator Topically 3 times a day, 163.4, c... Start Date: 10/13/21 Status: Ordered Vitamin D 41709 iu oral capsule 50,000 International_Units, By Mouth, [...] Reference Physician Member Role: PCP Address: Address: [address] [place] [address] [place] [address]- Care Team Related Persons Name: LINDSEY NICHOLS Address: home [address] [place] [address]
--- OUTSIDE RECORDS SUMMARY | 2023-10-14 11:42 | XMS_ITS | Continuity of Care Document ---
Author Organization [facility] TOOL MAKER Oncolog y Address [address] [place] [address]- Care Team Providers Care Patient Services Manager Name Role Phone Rodrigo Serna DO Primary Care Physician Encounter [facility] ACCT R [id number] Date(s): 11/18/22 - 12/18/22 [facility] TOOL MAKER Oncology [address] [place] [address]- Attending Physician: Matt Leigh Admitting Physician: Matt [...] tablet, 3 Refills, Maintenance, 09/14/22 11:21:00 EDT, [facility] STORE 87839, 163.4, cm, 08/03/22 11:43:00 EDT, Height, 63.6, [...] Start Date: 06/23/21 Status: Ordered nystatin topical 082107 u/gm cream 1 applicator, Topically, 3 times a day, # 30 Gm, 1 Refills, Maintenance, 10/13/21 11:13:00 EDT, [facility]/pharmacy #[id number], Partial fill upon patient request if the prescription is for a schedule II opioid drug., 1 applicator Topically 3 times a day, 163.4, c... Start Date: 10/13/21 Status: Ordered Vitamin D 09311 iu oral capsule 50,000 International_Units, By Mouth, [...] Physician Member Role: PCP Address: Address: [address] [place] [address] [place] [address]- Care Team Related Persons Name: LINDSEY NICHOLS Address: home [address] [place] [address]
--- OUTSIDE RECORDS SUMMARY | 2023-10-14 11:42 | XMS_ITS | Continuity of Care Document ---
Author Organization [facility] PRESS SHOP SUPERVISOR Oncolog y Address [address] [place] [address]- Care Team Providers Care Dye Reel Operator Name Role Phone Daphne Rodrigo MOORE Primary Care Physician Encounter [facility] [place] Date(s): 01/10/23 - 02/09/23 [facility] PRESS SHOP SUPERVISOR Oncology [address] [place] [address] Allergies, Adverse Reactions, Alerts Substance [...] tablet, 3 Refills, Maintenance, 09/14/22 11:21:00 EDT, [facility] STORE 36808, 163.4, cm, 08/03/22 11:43:00 EDT, Height, 63.6, [...] Start Date: 06/23/21 Status: Ordered nystatin topical 159112 u/gm cream 1 applicator, Topically, 3 times a day, # 30 Gm, 1 Refills, Maintenance, 10/13/21 11:13:00 EDT, [facility]/pharmacy #[id number], Partial fill upon patient request if the prescription is for a schedule II opioid drug., 1 applicator Topically 3 times a day, 163.4, c... Start Date: 10/13/21 Status: Ordered Vitamin D 71054 iu oral capsule 50,000 International_Units, By Mouth, [...] Reference Physician Member Role: PCP Address: Address: [address] [place] [address] [place] [address]- Care Team Related Persons Name: LINDSEY NICHOLS Address: home [address] [place] [address]
--- OUTSIDE RECORDS SUMMARY | 2023-10-14 11:42 | XMS_ITS | Patient Health Record ---
Author Organization [facility] Address [address] [place] [address] Care Team Providers Care Cable Technician Name Role Phone Rodrigo Serna DO Primary Care Provider Unavail able Rodrigo Moss Unavailable [phone] ALLERGIES Allergen (clinical drug ingredient) Drug/Non Drug Allergy documented on EMR Reaction Allergy Type Onset Date Status sulfamethoxazole / trimethoprim Bactrim Unknown Drug Allergy Active REASON FOR REFERRAL No Information MEDICATIONS Medication SIG (Take, Route, Frequency, Duration) Notes Start Date End Date Status Anastrozole 1 MG TAKE 1 TABLET BY MOUTH EVERY DAY Oral for 90 Active Hyoscyamine Sulfate 0.125 MG use 1 or 2 tablets Sublingual Every 4 to 6 hours as needed for abdominal discomfort/cramps for 30 days Please let me know if the Hyoscyamine isn't covered and if the patient needs a different Rx. sent over. Thanks [facility] [place] 06/10/2022 Active Vitamin D 1000 UNIT 1 tablet Orally Once a day for 30 day(s) Active Calcium 600 + D 600-200 MG-UNIT 1 tablet Orally Twice a day Active Multivitamin Active IMMUNIZATIONS Vaccine Route Administration Date Status Comme nts Influenza Unknown 12/03/2021 Administered SOCIAL HISTORY Sex Assigned At : Social History Observation Description Sex Assigned At Unknown PROBLEMS Problem Type ICD Code Onset Dates Problem Status W/U Status Risk SNOMED Code Notes Problem Encounter for screening for malignant neoplasm of colon (Z12.11) Active confirmed 363727751 Problem History of adenomatous polyp of colon (Z86.010) Active confirmed 707762602 Problem Encounter for screening for malignant neoplasm of rectum (Z12.12) Active confirmed Screening fo r malignant neoplasm of rectum (669337463) Problem Elevated liver function tests (R79.89) Active confirmed 616368046 Problem Preprocedural examination (Z01.818) Active confirmed 62506958 Problem Elevated liver enzymes (R74.8) Active confirmed 019004327 Problem Diarrhea, unspecified type (R19.7) Active confirmed 92655957 Problem Irritable bowel syndrome with constipation (K58.1) Active confirmed Irritable bowel syndrome characterized by constipation (191559355) Problem Nausea and vomiting, intractability of vomiting not specified, unspecified vomiting type (R11.2) Active confirmed 08086157 Problem Diverticulosis of colon (K57.30) Active confirmed Diverticulosi s of colon (744276332) Problem RLQ abdominal pain (R10.31) Active confirmed 362215313 PLAN OF TREATMENT Pending Test Test Name Order Date CHEM 7 PROFILE 12/01/2017 LIVER PROFILE 06/10/2022 LIVER PROFILE 12/01/2017 LIVER PROFILE 06/21/2022 AMYLASE 12/01/2017 LIPASE 12/01/2017 CBC with MANUAL DIFFERENTIAL 12/01/2017 CLOSTRIDIUM DIFF TOXIN A&B (C DIFF) 11/04 GIARDIA AG, STOOL EIA 12/01/2017 OVA & PARASITES (O&P) 12/01/2017 CULTURE, STOOL 12/01/2017 STOOL WBC 12/01/2017 US pelvic and transvaginal 06/10/2022 Future Test Test Name Order Date COLONOSCOPY 06/10/2020 Insurance Providers Payer Name Payer Address Payer Phone Subscriber Number Group Number Insured Name Patient Relationship to Insured Coverage Start Date Coverage End Date MEDICARE [place] [address] [place] [address] [id number] GABE NICHOLS Self - patient is the insured MEDEX ATTN CLAIMS [address] [place] [address] [phone] [id number] GABE NICHOLS Self - patient is the insured MEDICAL (GENERAL) HISTORY Medical History History ICD Code Screening colonoscopy in 200 2 with removal of a small tubular adenoma; colonoscopy in 2004 and 04-06-2010 were negative for polyps--she does have mild sigmoid diverticulosis and small internal hemorrhoids Denies HI,DM,CVA,Lung disease,renal dise ase Negative Hemoccult cards x 3 in 04/2016 Hx of thyroiditis DCIS Spring 2021 lumpectomy, XRT, Anastr ozole Negative screening colonoscopy in September Right lower quadrant pain of unclear etiology in April of 2022. She underwent an extensive workup while in [place] including a diagnostic laparoscopy and appendectomy, CT scan of the abdomen and pelvis, MRI of the pelvis, MRI of the spine, abdominal ultrasound, HIDA scan with [facility], and laboratories. The results were all nonrevealing, including a basically normal appendix on pathology. However, the surgeon's operative report doesn't describe adhesions in the right or quadrant and around the appendix, with associated dilation, thickening, and edema of the appendix consistent with inflammation. Surgical History Surgery Date(Month/Year) x2 Lumpectomy left breast for DCIS in [facility]2021 Diagnostic laparoscopy as de scribed above with an appendectomy in April of 2022 while in [place] for the evaluation of right lower quadrant pain
[2023-10-14 11:46] LABS: Basophils Percent Auto 0.5 % (0-2); Eosinophils Absolute Auto 0.1 X10*3/uL (0.0-0.4); Eosinophils Percent Auto 0.8 % (0-4); Hematocrit 43.9 % (37.0-47.0); Imm Gran Abs Auto 0.02 X10*3/uL (0.00-0.03); Imm Gran Pct Auto 0.3 % (0.0-0.4); Lymphocytes Absolute Auto 1.6 X10*3/uL (1.2-4.9); Lymphocytes Percent Auto 24.7 % (20-40); Mean Corpuscular HGB Conc 34.2 g/dl (31.0-35.0); Mean Corpuscular Hemoglobin 32.1 pg (27.0-33.0); Monocytes Absolute Auto 0.5 X10*3/uL (0.1-1.2); Monocytes Percent Auto 7.2 % (2-11); Neutrophils Absolute Auto 4.3 x10*3/uL (2.0-8.3); Neutrophils Percent Auto 66.5 % (45-73); Platelet Count 250 X10*3/uL (160-400); Red Blood Count 4.67 X10*6/uL (4.20-5.50); Red Cell Distribution Width 13.4 % (11.0-16.0); White Blood Count 6.4 X10*3/uL (4.8-10.8)
[2023-10-14 12:01] LABS: Alanine Aminotransferase 26 U/L (0-31); Albumin Level 4.9 g/dL (3.5-5.0); Alkaline Phosphatase 66 U/L (39-117); Anion Gap 14 (12-20); Aspartate Amino Transferase 27 U/L (5-31); Bilirubin Total 0.7 mg/dL (0.0-1.0); Blood Urea Nitrogen 17 mg/dL (9-16); Calcium 10.7 mg/dL (8.4-10.2); Carbon Dioxide 27 mmol/L (22-29); Chloride 103 mmol/L (96-108); Creatinine Clr Calc Pharmacy 57.7; Estimated Glomerular Filt Rate > 60; Glucose Random 106 mg/dL (60-115); Potassium 4.2 mmol/L (3.3-5.1); Sodium 140 mmol/L (135-145); Total Protein 7.6 g/dL (6.5-8.0)
[2023-10-14 12:25] LABS: Appearance Urine Clear; Color Urine Yellow; Glucose Urine UA Negative (Negative); Leukocyte Esterase Urine Negative (Negative); Nitrite Urine Negative (Negative); Urine Blood Negative (Negative); Urine Ketones Negative (Negative); Urine Protein Negative (Neg-Trace)
[2023-10-14] MEDS: methylPREDNISolone Sod Succ 125 MG/2 ML VIAL 60 MG IM (12:57)
[2023-10-14] MEDS: Ketorolac Tromethamine 15 MG/ML VIAL IM (12:58)
--- NOTE | 2023-10-14 13:02 | PC.NURSE ---
pt medicated per provider order. effectiveness pending. pt waiting for xray results at this time.
[2023-10-14 13:41] VITALS: BP 147/65; PULSE 61; RESP 20; TEMP 36.3; O2SAT 99
== END 2023-10-14 13:42 | disposition home or self-care (01) ==
PROVIDERS: Nurse Practitioner Family; Emergency Provider Emergency Medicine; PCP Internal Medicine
DX: M70.71 Other bursitis of hip, right hip (principal); Y93.9 Activity, unspecified
CPT/HCPCS: 36415; 72100; 73502; 80053; 81003; 85025; 96372; 99283; 99284; J1885; J2919

== ENCOUNTER 2024-01-27 10:38 | Outpatient (REF) | payer MEDICARE, SELFPAY ==
[2024-01-27 13:20] LABS: MANUAL DIFF FLAG NO
[2024-01-27 13:35] LABS: Basophils Percent Auto 0.6 % (0-2); Eosinophils Absolute Auto 0.1 X10*3/uL (0.0-0.4); Eosinophils Percent Auto 1.9 % (0-4); Hematocrit 41.6 % (37.0-47.0); Imm Gran Abs Auto 0.02 X10*3/uL (0.00-0.03); Imm Gran Pct Auto 0.4 % (0.0-0.4); Lymphocytes Absolute Auto 1.4 X10*3/uL (1.2-4.9); Lymphocytes Percent Auto 29.8 % (20-40); Mean Corpuscular HGB Conc 33.7 g/dl (31.0-35.0); Mean Corpuscular Hemoglobin 31.7 pg (27.0-33.0); Mean Corpuscular Volume 94.3 fL (80.0-98.0); Mean Platelet Volume 10.6 fL (9.4-12.3); Monocytes Absolute Auto 0.4 X10*3/uL (0.1-1.2); Monocytes Percent Auto 8.3 % (2-11); Neutrophils Absolute Auto 2.8 x10*3/uL (2.0-8.3); Platelet Count 226 X10*3/uL (160-400); Red Blood Count 4.41 X10*6/uL (4.20-5.50); Red Cell Distribution Width 12.3 % (11.0-16.0); White Blood Count 4.7 X10*3/uL (4.8-10.8)
[2024-01-27 14:15] LABS: Alanine Aminotransferase 26 U/L (0-31); Alkaline Phosphatase 65 U/L (39-117); Aspartate Amino Transferase 33 U/L (5-31); Bilirubin Total 0.5 mg/dL (0.0-1.0); Blood Urea Nitrogen 15 mg/dL (9-16); Calcium 9.5 mg/dL (8.4-10.2); Cholesterol 204 mg/dL (<200); Estimated Glomerular Filt Rate > 60; Glucose Fasting 96 mg/dL (60-99); HDL Cholesterol 67 mg/dL (>40); LDL Cholesterol Calculated 127 mg/dL (<100); Thyroid Stimulating Hormone 1.26 uIU/mL (0.32-4.0); Total Protein 6.2 g/dL (6.5-8.0); Triglycerides 54 mg/dL (<150); Vitamin D 25-OH Total 94.9 ng/mL (>30)
[2024-01-27 14:23] LABS: Parathyroid Hormone Intact 66.2 pg/mL (8.7-77.1)
[2024-01-27 14:36] LABS: Anion Gap 8 (12-20); Carbon Dioxide 28 mmol/L (22-29); Chloride 109 mmol/L (96-108); Potassium 4.3 mmol/L (3.3-5.1); Sodium 141 mmol/L (135-145)
== END 2024-01-27 10:39 | disposition home or self-care (01) ==
LOC: HO.HMGCLDS 10:38
PROVIDERS: PCP Internal Medicine; Visit Provider Internal Medicine
DX: Z00.00 Encounter for general adult medical examination without abnormal findings (principal); C50.919 Malignant neoplasm of unspecified site of unspecified female breast
CPT/HCPCS: 36415; 80053; 80061; 82306; 83970; 84443; 85025

== ENCOUNTER 2024-08-21 13:02 | Outpatient (AMB) | payer MEDICARE, SELFPAY ==
[2024-08-21 13:12] VITALS: BP 140/61; PULSE 52; RESP 14; TEMP 36.6; O2SAT 99; BMI 25.6
--- NOTE | 2024-08-21 13:12 | MHC.PC.OV ---
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 Accompanied by: Self / Same As Patient Allergies sulfamethoxazole [From Bactrim] Allergy (Intermediate, Verified 08/21/24 13:35) Diarrhea trimethoprim [From Bactrim] Allergy (Intermediate, Verified 08/21/24 13:35) Diarrhea ibuprofen Adverse Reaction (Unknown, Verified 08/21/24 13:35) Gastrointestinal Upset Medication List - Last Reconciled 08/21/24 by Finesse Hernandez MD anastrozole 1 mg PO DAILY calcium carbonate ([place]) 1,000 mg PO DAILY cholecalciferol (vitamin D3) 25 mcg PO DAILY multivitamin 1 tab PO DAILY Tobacco use date assessed: 08/21/24 Fall risk assessment: No Falls in past year Last assessed Fall Risk: 08/21/24 Dental Screening Dental Screen Date: 08/21/24 Did you have a dental visit in the last 12 months?: Yes Did you have a dental problem in the last 6 months where you did not have access to dental care?: No Was dental information given to patient?: Patient has dentist [facility] Medical History (Updated 08/21/24 @ 13:37 by Finesse Hernandez MD) Irritable bowel syndrome without diarrhea Encounter for screening for malignant neoplasm of colon Back pain Arthritis Ductal carcinoma of breast Hyperthyroidism No significant medical problems Surgical History History of lumpectomy of left breast History of H/O colonoscopy Family History Mother Metastatic melanoma Social History Household Members: Spouse Housing: House Alcohol intake: current Alcohol intake frequency: a few times a week Patient Tobacco Use Status: Never used Tobacco service: No Current occupational status: retired Sexual orientation: Straight/Heterosexual Gender identity: Female Cognitive needs: No Hearing needs: No Vision needs: Yes (rx glasses) Female Reproductive History Menstrual Age of Menarche: 14 Questionnaire PHQ-9 Over the last 2 weeks, how often have you been bothered by any of the following problems? 1. Little interest or pleasure in doing things: not at all 2. Feeling down, depressed, or hopeless: not at all 3. Trouble falling or staying asleep, or sleeping too much: not at all 4. Feeling tired or having little energy: not at all 5. Poor appetite or overeating: not at all 6. Feeling bad about yourself - or that you are a failure or have let yourself or your family down: not at all 7. Trouble concentrating on things, such as reading the newspaper or watching television: not at all 8. Moving or speaking so slowly that other people could have noticed. Or the opposite - being so fidgety or restless that you have been moving around a lot more than usual: not at all 9. Thoughts that you would be better off or of hurting yourself in some way: not at all Total score: 0 Depression Screening Interpretation: Negative Depression Screening Done: Yes Source: Developed by Drs. Rodrigo Campuzano, Twyla Murphy, Melecio Kramer and colleagues, with an educational april from [employer]. Thrive Questionnaire Date Thrive assessed: 08/21/24 I am a: Patient What is your living situation today?: I have a steady place to live Within the past 12 months, did the food you bought not last and you didn't have the money to get more?: Never true Within the past 12 months, did you worry whether your food would run out before you got money to buy more?: Never true Do you have trouble paying for medicines?: No Do you have trouble getting transportation to medical appointments?: No Do you have trouble paying your heating and electricity bill?: No Do you have trouble taking care of your child, family member or friend?: No Do you have trouble with day-to-day activities such as bathing, preparing meals, shopping, managing finances, etc.?: No Are you currently unemployed and looking for a job?: No Are you interested in more education?: No Please select the resources that you would like help with: None Currently or been in a relationship where the following occur: No concerns reported THRIVE Score: 0 AUDIT C Alcohol Use Questionnaire (AUDIT-C) 1. How often do you have a drink containing alcohol?: 2-3 times a week 2. How many drinks containing alcohol do you have on a typical day when you are drinking?: 1 or 2 3. How often do you have six or more drinks on one occasion?: Never Total Score: 3 JADYN-7 AMB Questionnaire JADYN-7 Date JADYN - 7 assessed: 08/21/24 Feeling nervous, anxious, or on edge: 0 = Not at all Not being able to stop or control worryin = Not at all Worrying too much about different things: 0 = Not at all Trouble relaxin = Not at all Being so restless that it is hard to sit still: 0 = Not at all Becoming easily annoyed or irritable: 0 = Not at all Feeling afraid as if something awful might happen: 0 = Not at all Total JADYN-7 score (0-4 normal; 5-9 mild; 10-14 moderate; 15-21 severe): 0 Source: Developed by Drs. Rodrigo Campuzano, Twyla Murphy, Melecio Kramer and colleagues, with an educational april from [employer]. Physical exam (Primary Care) Vital Signs: Last Vital Signs Temp 97.9 F 08/21/24 13:12 Pulse 52 08/21/24 13:12 Resp 14 08/21/24 13:12 BP 140/61 H 08/21/24 13:12 Pulse Ox 99 08/21/24 13:12 Oxygen Delivery Method Room Air 08/21/24 13:12 Care Plan Goal for BP management: In range BMI result Body Mass Index 25.6 Tobacco/Smoking Status: Tobacco use Status Tobacco use date assessed 08/21/24 08/21/24 13:23 Patient Tobacco Use Status Never used Tobacco 08/21/24 13:23 PHQ-9: PHQ-9 Score PHQ-9: Total score 0 08/21/24 13:23 Depression Screening Interpretation: Negative Thrive Assessment: Date of Thrive Assessment Date Thrive assessed 08/21/24 08/21/24 13:23 Currently or been in a relationship where the following occur: No concerns reported Advance Care Planning discussion: Exists, not on file Date of discussion: 08/21/24 Who was present: Patient Forms completed: Health Care Proxy Actual minutes spent: 5 Coding Level of Care Code New Pt Level 4 (65313) Complex EM visit Add On G2211 Diagnoses DCIS (ductal carcinoma in situ) D05.10 Additional Codes Vital Signs *Quality* - Advance Care Planning discussion: Exists, not on file ([id number]) Assessment & Plan Assessment & Plan (1) DCIS (ductal carcinoma in situ): Code(s): D05.10 - Intraductal carcinoma in situ of unspecified breast Category: Medical Plan: All care at [facility] including screening mammogram. Plan History of Present Illness The patient is a 74-year-old female presenting for a wellness visit. The patient is followed by Dr. Ana Tafoya for a history of breast cancer and has a scheduled screening mammogram tomorrow due to previous surgery and the follow-up care process. Her colon cancer screenings involved colonoscopies, with the last result two years prior declaring further screenings unnecessary. She reports previous bone density testing within the past year and ongoing use of anastrozole as her sole prescription medication. Hypothyroidism is part of her medical history, requiring routine monitoring. Her last blood work was done at [facility]. 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 - Family Status: , two daughters aged 42 and 38, and five grandchildren. - Living Situation: Resides with her and a dog; they live independently. - Residence: Has a house in [place] where they live during the winter. - Level of Activity: Describes herself as active. Review of Systems - General: Denies any medical concerns. - Vision: Reports vision is fine with glasses and does not experience halos while driving. Physical Exam General: Cooperative and healthy appearing Nutritional Appearance: Well nourished Orientation/consciousness: Patient oriented x3 Limitations: No limitations Head: Normal to inspection General: Appearance normal, both eyes and all related structures Neck: Normal visual inspection Chest: Normal palpation of entire chest wall Respiratory: Deep breath. Deep breath. Out. ormal respiratory effort Neurology: Patient oriented x3 Results - Pending mammogram result scheduled for tomorrow at [facility]. - Most recent colonoscopy was two years ago with no further need indicated. - Bone density testing completed within the last year. Plan 1. History Of Breast Cancer - Follow-up with Dr. Ana Tafoya and continue care. - Screen with mammogram scheduled tomorrow. 2. Hypothyroidism - Monitor with thyroid function tests. Discussion Notes I discussed with the patient the importance of continued monitoring and follow-up for her history of breast cancer, including the upcoming mammogram. We also talked about the thyroid function tests needed due to her hypothyroidism and the need to follow through with any appropriate blood work to ensure stable management of her condition. Patient understands the need for continued check-ups and follow-ups and agrees with the plan. There was further discussion regarding the patient's independence and her ability to maintain her active lifestyle, with no current need for additional services or interventions. Patient Instructions - Attend the scheduled mammogram. - Follow up for thyroid blood tests. - Continue with current lifestyle and regular check-ups. - Fast after midnight if needing blood tests.
--- OUTSIDE RECORDS SUMMARY | 2024-08-21 14:07 | XMS_ITS | Data Portability ---
Author Organization [facility], [facility] Address [address] [place] [id number] Care Team Providers Care Netezza Architect Name Role Phone YASHIRA NICOLAS Primary Care Provider [phone] JACK LONGO General Surgeon Assessment No assessment recorded. Plan of Treatment Reminders Order Date Submit Date Provider Last Modified By Organization Details Last Modified Time Details Appointments None record ed. Lab None record ed. Referral None record ed. Procedures None record ed. Surgeries None record ed. Imaging None record ed. Medication Orders None record ed. Patient TargetsNo targets recorded. Patient InstructionsNo instructions recorded. Reason for Referral None Reported. Results Created Date Observation Date Name Description Value Unit Range Abnormal Flag Note LastModifiedBy Organization Detail LastModifiedTime Result Notes None recorded. Procedures Surgical History Date Name Laterality Status Provider Name and Address Organization Details Recorded Time Appendectomy completed [facility] 04/22/2022 15:31:23 biopsy of breast completed [facility] 04/22/2022 15:31:42 tonsilectomy/lacey oids completed [facility] 04/22/2022 15:33:06 Imaging Results None recorded. Procedure Notes None recorded. Medical Equipment None Reported. Allergies Allergen ID Allergen Name Allergen Category Reaction Reaction Severity Criticality Documentation Date Start Date Code Code System Note Provider Name and Address Organization Details Recorded Time 736114 Bactrim medicatio n Not available Not available Not available 04/22/2022 43218 9 RxNorm [facility] 15:28:05 Medications Name Sig Start Date Stop Date Status Note LastModified by Organization Details LastModified Time anastrozole 1 mg tablet TAKE 1 TABLET BY MOUTH EVERY DAY active Not Available Not Available No t Available ciprofloxaci n 500 mg tablet TAKE 1 TABLET BY MOUTH TWICE A DAY FOR 5 DAYS active Not Available Not Available No t Available oxycodone-ac etaminophen 5 mg-325 mg tablet TAKE 1 TO 2 TABLETS BY MOUTH EVERY 6 HOURS NEEDED FOR PAIN active Not Available Not Available No t Available nystatin 100,000 unit/gram topical cream APPLY TO AFFECTED AREA 3 TIMES A DAY active Not Available Not Available Not Available oxycodone 5 mg capsule TAKE 1 CAPSULE BY MOUTH EVERY 6 HOURS, NEEDED FOR PAIN,DO NOT DRIVE ON NARCOTIC MEDICATION active Not Available Not Available N ot Available lorazepam 1 mg tablet TAKE 1 TABLET BY MOUTH EVERY DAY AT BEDTIME NEEDED FOR 30 DAYS active Not Available Not Available No t Available betamethason e dipropionate 0.05 % lotion APPLY TWICE A DAY TO AFFECTED AREA ON SCALP. active Not Available Not Available No t Available bimatoprost 0.03 % drops with applicator, eyelash base APPLY 1 DROP AT BEDTIME TO UPPER EYELASHES WITH APPLICATOR. active Not Available Not Available Not Available Vitals Date Recorded Body height Body mass index (BMI) Body weight Provider Name and Address Organization Details Last Updated DateTime 04/22/2022 162.56 cm 23.9 kg/m2 11200.34 g [facility] 04/22/2022 15:27:54 Social History None recorded. Functional Status Question Answer Note LastModified by Organizat ion Details LastModified Time What is your level of alcohol consumption? Occasional Information not available 04/22/2022 Mental Status None recorded. Family History Relationship Description Onset Age of this Age Resolved Age Notes LastModified by Organization Details LastModified Time Mother Metastatic malignant melanoma [email or web address] Not available 04/04 15:29:47 Father Dementia Not availa ble 04/22/2022 15:29:57 Medical History No medical history recorded. Gynecological HistoryNo gynecological history recorded. Obstetrics History GPAL:G 0 P 0 0 0 0 Past Encounters Encounter ID Performer Location Encounter Start Date Encounter Closed Date Diagnosis/Indication Diagnosis SNOMED-CT Code Diagnosis ICD10 Code Diagnosis Note [id number] Jack Longo MD [facility] [address] [place] [address] 04/22/2022 15:07:10 04/22/2022 16:09:00 Postoperative visit [id number] Z09 A diagnostic lap, and lap appendecto my was performed on 04/07/22. Findings for the op revealed benign appendicea l tissue with neuromatou s hyperplasi a and luminal obliterati ve fibrosis, No significan t acute inflammati on. Patient is doing well s/p but is experienci ng symptoms that appear to be neurologic al. I will refer her to neurologic al surgeon and neurologis t to evaluate her issues further. Health Concerns Section Related Observation LastModified by Organization Detai ls LastModified Time None Recorded Concern Status LastModified by Organization Details LastModified Time None Recorded Advance Directives Directive None Recorded Payers Insurance Date Sequence Insurance Name Policy Number Policy Scott Covered Member ID Scott Member ID Guarantor Name 05/13/2022 1 [place] Marilou Hoyt Fadi [id number] Jossy Fadi 05/13/2022 2 [place]MEDICARE SUPPLEMENT) Jossy Fadi [id number] Jossy Fadi Notes Date Note Type Note Provider Name and Address Organization Details Recorded Time 04/22/2022 text/html Patient arrives today for a post op visit from a diagnostic lap, and lap appendectomy performed on 04/07/22 for severe RLQ pain. She initially felt significantly better, however unfortunately her pain has returned. Findings for the op revealed benign appendiceal tissue with neuromatous hyperplasia and luminal obliterative fibrosis, No significant acute inflammation. She reports numbness and radiation of pain post surgery. She expresses the pain is intermittent. She suspects her symptoms to be neurological. Jack Longo MD [address], [place], [address], [facility]. 04/22/2022 20:46:20 OBGyn Episode No OBEpisode recorded.
== END 2024-08-21 13:34 | disposition home or self-care (01) ==
LOC: HO.HMCSH 13:02
PROVIDERS: PCP Internal Medicine; Visit Provider Internal Medicine
DX: D05.10 Intraductal carcinoma in situ of unspecified breast (principal); Z00.00 Encounter for general adult medical examination without abnormal findings

== ENCOUNTER → 2024-08-21 13:02 | Outpatient (BNVA) | payer MEDICARE, SELFPAY | PROVIDERS: PCP Internal Medicine; Visit Provider Internal Medicine | DX: Z85.3 Personal history of malignant neoplasm of breast (principal); E05.90 Thyrotoxicosis, unspecified without thyrotoxic crisis or storm | CPT/HCPCS: 99202 ==

== ENCOUNTER 2024-09-14 08:32 | Outpatient (REF) | payer MEDICARE, SELFPAY ==
--- OUTSIDE RECORDS SUMMARY | 2024-09-14 08:41 | XMS_ITS | Data Portability ---
Author Organization [facility], [facility] Address [address] [place] [id number] Care Team Providers Care Insurance Claims Examiner Name Role Phone YASHIRA NICOLAS Primary Care Provider JACK LONGO General Surgeon Assessment No assessment [...] Address Organization Details Recorded Time Appendectomy completed [facility] 04/22/2022 15:31:23 biopsy of breast completed [facility] 04/22/2022 15:31:42 tonsilectomy/lacey oids completed [facility] 04/22/2022 15:33:06 Imaging Results None recorded. Procedure Notes None recorded. Medical Equipment None Reported. Allergies Allergen ID Allergen Name Allergen Category Reaction Reaction Severity Criticality Documentation Date Start Date Code Code System Note Provider Name and Address Organization Details Recorded Time 515681 Bactrim medicatio n Not available Not available Not available 04/22/2022 72173 9 RxNorm [facility] 15:28:05 Medications Name Sig Start Date [...] Updated DateTime 04/22/2022 162.56 cm 23.9 kg/m2 93424.34 g [facility] 04/22/2022 15:27:54 Social History None recorded. Functional [...] SNOMED-CT Code Diagnosis ICD10 Code Diagnosis Note [id number] Jack Longo MD [facility] [address] [place] [address] 04/22/2022 15:07:10 04/22/2022 16:09:00 Postoperative visit [id number] Z09 A diagnostic lap, and lap appendecto [...] Scott Member ID Guarantor Name 05/13/2022 1 [place] Marilou Hoyt Fadi [id number] Jossy Fadi 05/13/2022 2 [place]MEDICARE [place]PPLE[place]) Jossy Fadi [id number] Jossy Fadi Notes Date Note Type [...] MD [address], [place], [address], [facility] - [facility]. 04/22/2022 20:46:20 OBGyn Episode No OBEpisode recorded.
[2024-09-14 10:15] LABS: Hematocrit 40.6 % (37.0-47.0); Hemoglobin 13.5 g/dl (12.0-16.0); Mean Corpuscular HGB Conc 33.3 g/dl (31.0-35.0); Mean Corpuscular Hemoglobin 31.1 pg (27.0-33.0); Mean Corpuscular Volume 93.5 fL (80.0-98.0); Mean Platelet Volume 10.8 fL (9.4-12.3); Platelet Count 218 X10*3/uL (160-400); Red Blood Count 4.34 X10*6/uL (4.20-5.50); Red Cell Distribution Width 12.6 % (11.0-16.0); White Blood Count 4.7 X10*3/uL (4.8-10.8)
[2024-09-14 10:53] LABS: Appearance Urine Clear; Color Urine Yellow; Glucose Urine UA Negative (Negative); Leukocyte Esterase Urine Negative (Negative); Nitrite Urine Negative (Negative); Specific Gravity - Urine 1.015 (1.005-1.025); Urine Blood Negative (Negative); Urine Ketones Negative (Negative); Urine Protein Negative (Neg-Trace)
[2024-09-14 11:13] LABS: Alanine Aminotransferase 24 U/L (0-31); Albumin Level 4.3 g/dL (3.5-5.0); Alkaline Phosphatase 67 U/L (39-117); Anion Gap 11 (12-20); Aspartate Amino Transferase 28 U/L (5-31); Bilirubin Direct 0.2 mg/dL (0.0-0.5); Bilirubin Total 0.5 mg/dL (0.0-1.0); Blood Urea Nitrogen 20 mg/dL (9-16); Calcium 9.5 mg/dL (8.4-10.2); Carbon Dioxide 27 mmol/L (22-29); Chloride 107 mmol/L (96-108); Cholesterol 202 mg/dL (<200); Estimated Glomerular Filt Rate > 60; Glucose Random 97 mg/dL (60-115); HDL Cholesterol 63 mg/dL (>40); LDL Cholesterol Calculated 128 mg/dL (<100); Sodium 141 mmol/L (135-145); Total Protein 6.2 g/dL (6.5-8.0); Triglycerides 55 mg/dL (<150)
[2024-09-14 11:16] LABS: Thyroid Stimulating Hormone 1.16 uIU/mL (0.32-4.0)
== END 2024-09-14 08:33 | disposition home or self-care (01) ==
LOC: HO.HMGCLDS 08:32
PROVIDERS: PCP Internal Medicine; Visit Provider Internal Medicine
DX: D05.10 Intraductal carcinoma in situ of unspecified breast (principal)
CPT/HCPCS: 36415; 80048; 80061; 80076; 81003; 84443; 85027

== ENCOUNTER 2024-11-13 11:56 | Outpatient (AMB) | payer MEDICARE, SELFPAY ==
[2024-11-13 12:05] VITALS: BP 110/70; BMI 24.9
--- NOTE | 2024-11-13 12:05 | A.OFFVIS_ITS ---
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 No complaints. No pelvic pain pressure or bleeding Last Pap/HPV was in 2014 was negative difference preceded multiple Pap smears between the age of 55 and 65, no history of abnormal Pap smears Last Mammogram was a month ago was normal at [facility], no records available Last Colonoscopy was in 09/22, the recommendation by Dr. Moss was not to have any further colonoscopies Last DEXA scan was six-months ago at [facility], no results available but according to the patient no evidence of osteoporosis Last pelvic ultrasound a year ago was done at [facility] regarding uterine myomas, stable in size [facility] Medical History Irritable bowel syndrome without diarrhea Encounter for screening for malignant neoplasm of colon Back pain Arthritis Ductal carcinoma of breast Hyperthyroidism No significant medical problems Surgical History History of lumpectomy of left breast History of H/O colonoscopy (09/19/20) Family History Mother Metastatic melanoma Social History Household Members: Spouse Housing: House Alcohol intake: current Alcohol intake frequency: a few times a week Patient Tobacco Use Status: Never used Tobacco service: No Current occupational status: retired Sexual orientation: Straight/Heterosexual Gender identity: Female Cognitive needs: No Hearing needs: No Vision needs: Yes (rx glasses) Female Reproductive History Menstrual Age of Menarche: 14 Review of Systems Const All systems reviewed & are unremarkable except as noted in HPI and below Card Reports as per HPI Resp Reports as per HPI GI Reports as per HPI and Reports no additional complaints Reports as per [facility] Physical Exam Vital Signs: Last Vital Signs BP 110/70 11/13/24 12:05 BMI result Body Mass Index 24.9 Const General: cooperative, healthy appearing and comfortable Chest Chest palpation & inspection: normal inspection of the chest and normal palpation of entire chest wall Breast/axilla inspection: normal inspection of the breasts and normal inspection of the axillae Breast/axilla palpation: normal palpation of the breasts, normal palpation of the axillae and no axillary lymphadenopathy Resp Effort & Inspection: normal respiratory effort Auscultation: clear to auscultation bilaterally Percussion: percussion normal Cardio Palpation: normal PMI Rate: regular rate Rhythm: regular rhythm Heart sounds: no murmurs and no rubs Peripheral pulses: Peripheral pulses 2+ throughout GI Inspection: Yes normal to inspection Palpation (GI): Soft to palpation, nontender, no guarding, not rigid and No hepatosplenomegaly present Percussion: Yes normal to percussion Auscultation: normal bowel sounds Rectal Exam - Female: deferred General: Yes bladder normal to palpation External Female Exam: No lesion Speculum Exam - Vagina: normal appearance of the vagina, normal palpation, normal vaginal discharge and not erythematous Speculum Exam - Cervix: normal appearance of the cervix and normal palpation Bimanual exam- vagina & uterus: normal bimanual exam, normal palpation, uterine size normal, bladder normal to palpation, consistency normal and normal palpation Bimanual Exam- Adnexa, other: normal adnexae, no masses and no tenderness Assessment & Plan Assessment & Plan (1) Well woman exam: Code(s): Z01.419 - Encounter for gynecological examination (general) (routine) without abnormal findings Category: Medical Plan: Co testing not indicated since the patient 's age is above 65 with no history of abnormal Pap smears last 25 years, adequately screen for the last 10 years with no history of immunosuppression. Counseled the patient about the recommended dietary allowance of 1200 mg of Calcium & 800 IU of vitamin D. Mammogram is being done regularly at [facility] The patient was instructed to perform monthly self-breast exams and to schedule a 2 week DEXA scan follow-up appointment and an annual exam in a year; All questions answered and the patient verbalized understanding. (2) Myoma: Code(s): D21.9 - Benign neoplasm of connective and other soft tissue, unspecified Category: Medical Plan: Pelvic ultrasound ordered, will schedule follow-up appointment within 2 weeks Coding Level of Care Code Est Pt Prev Care >65y(21182) Diagnoses Well woman exam Z01.419 Myoma D21.9
--- OUTSIDE RECORDS SUMMARY | 2024-11-13 12:50 | XMS_ITS | Clinical Summary ---
Author Organization [facility] Address [address] [address] Phone Care Team Providers Care Econometrics Professor Name Role Phone Unavailable Primary Care Provider Unavailabl e Social History Tobacco Use Types Packs/Day Years Used Date Smoking Tobacco: Never Assessed Education Answer Date Recorded Are you interested in more education? Not on estee e 07/30/2022 Are you concerned about learning? Not on file 07/30/2022 No 07/30/2022 No 07/30/2022 Digital Access Answer Date Recorded No 08/30/2022 No 08/30/2022 No 08/30/2022 Reliable internet access at home? Not on file 08/30/2022 Device with a working camera? Not on file Comments Unknown Sex and Gender Information Value Date Recorded Sex Assigned at Not on file Legal Sex Female 10:01 PM EDT Gender Identity Not on file Sexual Orientation Not on file Plan of Treatment Health Maintenance Due Date Last Done Comments LIPID PANEL 1950 DEPRESSION SCREENING 1962 SMOKING Hx and SMOKELESS TOBACCO SCREENING 07/23/1963 HEPATITIS C SCREENING 1968 MAMMOGRAM 1990 COLOGUARD 07/23/1995 COLONOSCOPY 07/23/1995 COLORECTAL CANCER SCREENING 07/23/1995 FIT TEST 07/23/1995 FOBT 07/23/1995 SIGMOIDOSCOPY 07/23/1995 VIRTUAL COLONOSCOPY 07/23/1995 OSTEOPOROSIS SCREENING INITIAL (ONE-TIME) 07/23/2015 ZOSTER VACCINES (2 of 3) 08/08/2015 06/13/2015 PNEUMOCOCCAL VACCINES (50+ years) (2 of 2 - PPSV23) 07/08/2017 07/08/2016 COVID-19 VACCINE ( season) 2023 07/05/2021, 12/26/2020, 06/25/2020, Additional history exists RSV VACCINE (1 - 1-dose 75+ series) 2025 Adult Td,Tdap Booster 06/07/2026 06/07/2016 HEPATITIS A VACCINES Aged Out No long er eligible based on patient's age to complete this topic HIB VACCINES Aged Out No longer eligi ble based on patient's age to complete this topic MENINGOCOCCAL VACCINES (ACWY) Aged Out No longer eligible based on patient's age to complete this topic MENINGOCOCCAL VACCINES (B) Aged Out N o longer eligible based on patient's age to complete this topic Medical Devices Not on [place] [id number] [employer] SUPPLEMENT MEDICARE PART A & B Evelina CORTÉS, ROSAL[place] [address] [employer] SUPPLEMENT MEDICARE PART A & [place] [address] [employer] MEDEX SUPPLEMENT MEDICARE PART A & [place] [address] BLUE CROSS MEDEX SUPPLEMENT MEDICARE PART A & B [employer] CROSS MEDEX SUPPLEMENT MEDICARE PART A & [place] [id number] Appl[employer] MEDEX SUPPLEMENT MEDICARE PART A & [place] [id number] Appl[employer] MEDEX SUPPLEMENT MEDICARE PART A & [place] [id number] Appl[employer] MEDEX SUPPLEMENT MEDICARE PART A & [place] [id number] [employer] MEDEX SUPPLEMENT MEDICARE PART A & B Additional Source Comments The information contained in this document represents components of the legal health record. It is not the complete legal health record.[facility]
== END 2024-11-13 12:57 | disposition home or self-care (01) ==
LOC: HO.HWS 11:56
PROVIDERS: PCP Internal Medicine; Visit Provider Obstetrics & Gynecology
DX: Z01.419 Encounter for gynecological examination (general) (routine) without abnormal findings (principal); D21.9 Benign neoplasm of connective and other soft tissue, unspecified
CPT/HCPCS: 99213; 99459; G0101

== ENCOUNTER → 2024-11-13 11:56 | Outpatient (BNVA) | payer MEDICARE, SELFPAY | PROVIDERS: PCP Internal Medicine; Visit Provider Obstetrics & Gynecology | DX: Z01.419 Encounter for gynecological examination (general) (routine) without abnormal findings (principal); D25.9 Leiomyoma of uterus, unspecified | CPT/HCPCS: 99212; G0101 ==

== ENCOUNTER 2024-12-31 12:50 | Outpatient (REF) | payer MEDICARE, SELFPAY ==
--- NOTE | ~2024-12-31 | US_ITS ---
EXAMINATION: US PELVIS TRANSABDOMINAL AND TRANSVAGINAL HISTORY: D21.9 - Benign neoplasm of connective and other soft tissue, unspecified COMPARISON: Comparison is made with the prior examination dated 09/30/2022. TECHNIQUE: Transabdominal and endovaginal real-time 2D junior-scale ultrasound was performed. FINDINGS: Uterus: The uterus is normal in size, measuring 6.2 x 4.3 x 5.6 cm. Myometrium has a normal echotexture. Again seen is an anterior fibroid measuring 3.3 x 2.8 x 3.7 cm (previously 4.2 x 3.4 x 4.2 cm) and an additional calcified anterior fibroid measuring 0.7 x 0.6 x 0.9 cm (previously 0.7 x 0.6 x 0.8 cm). There is a posterior fibroid measuring 1.7 x 1.2 x 1.2 cm which was not visualized on the prior study. Endometrium: The endometrial stripe is not well visualized. There is a nabothian cyst in the cervix. Right ovary: The right ovary measures 1.5 x 0.7 x 1.4 cm. The right ovary is normal in size and echotexture. Left ovary: The left ovary is not visualized. Pelvic fluid: none. US/US pelvic and transvaginal IMPRESSION: 1. Fibroid uterus as described. 2. The right ovary is unremarkable. The left ovary is not visualized. Electronically signed by: Rodrigo Marina MD 12/31/2024 01:43 PM EDT
--- OUTSIDE RECORDS SUMMARY | 2024-12-31 13:57 | XMS_ITS | Clinical Summary ---
Author Organization [facility] Address [address] [address] Phone Care Team Providers Care Safety Engineer Pressure Vessels Name Role Phone Unavailable Primary Care Provider [...] Not on file Insurance [place] [address] [employer] SUPPLEMENT MEDICARE PART A & B Evelina CORTÉS, ROSALINO [address] [employer] SUPPLEMENT MEDICARE PART A & [place] [address] [employer] MEDEX SUPPLEMENT MEDICARE PART A & [place] [address] [employer] MEDEX SUPPLEMENT MEDICARE PART A & B [employer] CROSS MEDEX SUPPLEMENT MEDICARE PART A & [place] [id number] [employer] MEDEX SUPPLEMENT MEDICARE PART A & [place] [address] [employer] MEDEX SUPPLEMENT MEDICARE PART A & [place] [address] [employer] MED[employer] SUPPLEMENT MEDICARE PART A & [place] [address] [employer] MEDEX SUPPLEMENT MEDICARE PART A & B Additional Source Comments The information contained in this document represents components of the legal health record. It is not the complete legal health record.[facility]
== END 2024-12-31 12:51 | disposition home or self-care (01) ==
LOC: HO.HMGCX 12:50
PROVIDERS: PCP Internal Medicine; Visit Provider Obstetrics & Gynecology
DX: D21.9 Benign neoplasm of connective and other soft tissue, unspecified (principal)
CPT/HCPCS: 76830; 76856

== ENCOUNTER → 2024-12-31 12:55 | Outpatient (BNV) | payer MEDICARE, SELFPAY | PROVIDERS: PCP Internal Medicine; Visit Provider Radiology Diagnostic Radiology | DX: D25.9 Leiomyoma of uterus, unspecified (principal) | CPT/HCPCS: 76830; 76856 ==

== ENCOUNTER 2025-01-01 14:08 | Outpatient (AMB) | payer MEDICARE, SELFPAY ==
[2025-01-01 14:22] VITALS: BP 112/64; PULSE 62; RESP 12; TEMP 36.9; O2SAT 94; BMI 25.7
--- NOTE | 2025-01-01 14:22 | MHC.PC.OV ---
Vital Signs 01/01/25 14:22 Height 5 ft 4 in Weight 150 lb BMI 25.7 BP 112/64 Blood Pressure Location Rt brachial Position Sitting Respiration 12 Pulse 62 Pulse Source Pulse Oximeter Temp 98.4 F Temp Source Oral Pulse Oximetry (%) 94 Oxygen Delivery Method Room Air Intake Visit Reasons: CASA DR. Billingsley Intake Note: New patient visit De Icer Finisher Required: No Allergies sulfamethoxazole (From Bactrim) Allergy (Intermediate, Verified 01/01/25 14:22) Diarrhea trimethoprim (From Bactrim) Allergy (Intermediate, Verified 01/01/25 14:22) Diarrhea ibuprofen Adverse Reaction (Unknown, Verified 01/01/25 14:22) Gastrointestinal Upset Tobacco use date assessed: 01/01/25 Fall risk assessment: No Falls in past year Last assessed Fall Risk: 01/01/25 Dental Screening Dental Screen Date: 01/01/25 Did you have a dental visit in the last 12 months?: Yes Did you have a dental problem in the last 6 months where you did not have access to dental care?: No Was dental information given to patient?: Patient has dentist HPI HPI Comments History of Present Illness Details The patient is a 74 year old female with a past medical history of breast cancer, hyperlipidemia, thyroiditis, presenting to [facility] care. Transfer from office CV: Mildly elevated lipids. ASCVD 12% with optimal lipid 11%. Based on this she would like to come off the medication Heme/Onc: Followed by [facility]. Rad/onc Dr Herrera. Anastrazole through 2026. Endocrine: History of thyroiditis-transient. Last TSH 09/2024 within normal. Neuro: Prior w/up for TIA. Saw neurology-said not TIA-migraine equivalent. No further episodes. History of abdominal pain a few years back. Finally diagnosed as interval shingles. MSK: History of right SI joint dysfunction, arthritis lumbar spine. Stable at present Follows with [facility] once annually seen 12/2024. 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 Moss was not to have any further colonoscopies Last Pap/HPV was in 2014 ROS CONSTITUTIONAL: Denies weight loss, fever and chills. HEENT: Denies changes in vision and hearing. RESPIRATORY: Denies SOB and cough. CV: Denies palpitations and CP GI: Denies abdominal pain, nausea, vomiting and diarrhea. : Denies dysuria and urinary frequency. MSK: Denies new myalgia and joint pain. SKIN: Denies rash and pruritus. NEUROLOGICAL: Denies headache PSYCHIATRIC: Denies recent changes in mood. PHYSICAL EXAM: GENERAL: Alert and oriented x 3. NAD EYES: EOMI. Anicteric. HENT: Moist mucous membranes. No scleral icterus. No cervical lymphadenopathy. LUNGS: Clear to auscultation bilaterally. CARDIOVASCULAR: Regular rate and rhythm. No murmur. No JVD. ABDOMEN: Soft, non-tender +bs EXTREMITIES: No edema. Non-tender. SKIN: No rashes or lesions. Warm. NEUROLOGIC: No focal neurological deficits. CN II-XII grossly intact PSYCHIATRIC: Cooperative. Appropriate mood and affect [facility] Medical History (Updated 01/02/25 @ 14:54 by Maral Andrew MD) Irritable bowel syndrome without diarrhea Encounter for screening for malignant neoplasm of colon Back pain Arthritis Ductal carcinoma of breast Hyperthyroidism No significant medical problems Surgical History (Updated 01/01/25 @ 14:41 by Ibeth Blanco CMA) Hx of tonsillectomy History of lumpectomy of left breast History of H/O colonoscopy (09/19/20) Family History (Updated 01/01/25 @ 14:41 by Ibeth Blanco CMA) Mother Metastatic melanoma Social History (Updated 01/01/25 @ 14:41 by Ibeth Blanco CMA) Household Members: Spouse Housing: House Alcohol intake: current Alcohol intake frequency: a few times a week Patient Tobacco Use Status: Never used Tobacco service: No Current occupational status: retired Sexual orientation: Straight/Heterosexual Gender identity: Female Cognitive needs: No Hearing needs: No Vision needs: Yes (rx glasses) Female Reproductive History Menstrual Age of Menarche: 14 Questionnaire PHQ-9 Over the last 2 weeks, how often have you been bothered by any of the following problems? 1. Little interest or pleasure in doing things: not at all 2. Feeling down, depressed, or hopeless: not at all 3. Trouble falling or staying asleep, or sleeping too much: not at all 4. Feeling tired or having little energy: not at all 5. Poor appetite or overeating: not at all 6. Feeling bad about yourself - or that you are a failure or have let yourself or your family down: not at all 7. Trouble concentrating on things, such as reading the newspaper or watching television: not at all 8. Moving or speaking so slowly that other people could have noticed. Or the opposite - being so fidgety or restless that you have been moving around a lot more than usual: not at all 9. Thoughts that you would be better off or of hurting yourself in some way: not at all Total score: 0 Depression Screening Interpretation: Negative Depression Screening Done: Yes 45327 - PHQ-9 Billing: Yes Source: Developed by Drs. Rodrigo Campuzano, Twyla Murphy, Melecio Kramer and colleagues, with an educational april from [employer]. Thrive Questionnaire Date Thrive assessed: 12/29/24 I am a: Patient What is your living situation today?: I have a steady place to live Within the past 12 months, did the food you bought not last and you didn't have the money to get more?: Never true Within the past 12 months, did you worry whether your food would run out before you got money to buy more?: Never true Do you have trouble paying for medicines?: No Do you have trouble getting transportation to medical appointments?: No Do you have trouble paying your heating and electricity bill?: No Do you have trouble taking care of your child, family member or friend?: No Do you have trouble with day-to-day activities such as bathing, preparing meals, shopping, managing finances, etc.?: No Are you currently unemployed and looking for a job?: No Are you interested in more education?: No Please select the resources that you would like help with: None Currently or been in a relationship where the following occur: No concerns reported THRIVE Score: 0 AUDIT C Alcohol Use Questionnaire (AUDIT-C) 1. How often do you have a drink containing alcohol?: 4 or more times a week 2. How many drinks containing alcohol do you have on a typical day when you are drinking?: 1 or 2 3. How often do you have six or more drinks on one occasion?: Never Total Score: 4 JADYN-7 AMB Questionnaire JADYN-7 Date JADYN - 7 assessed: 01/01/25 Feeling nervous, anxious, or on edge: 0 = Not at all Not being able to stop or control worryin = Not at all Worrying too much about different things: 0 = Not at all Trouble relaxin = Not at all Being so restless that it is hard to sit still: 0 = Not at all Becoming easily annoyed or irritable: 0 = Not at all Feeling afraid as if something awful might happen: 0 = Not at all Total JADYN-7 score (0-4 normal; 5-9 mild; 10-14 moderate; 15-21 severe): 0 Source: Developed by Drs. Rodrigo Campuzano, Twyla Murphy, Melecio Kramer and colleagues, with an educational april from [employer]. JADYN-7 Assessment Billing JADYN-7 Assessment Tool: JADYN-7 Assessment 72045 Physical exam (Primary Care) Vital Signs: Last Vital Signs Temp 98.4 F 01/01/25 14:22 Pulse 62 01/01/25 14:22 Resp 12 01/01/25 14:22 BP 112/64 01/01/25 14:22 Pulse Ox 94 01/01/25 14:22 Oxygen Delivery Method Room Air 01/01/25 14:22 BMI result Body Mass Index 25.7 Tobacco/Smoking Status: Tobacco use Status Tobacco use date assessed 01/01/25 01/01/25 14:41 Patient Tobacco Use Status Never used Tobacco 01/01/25 14:41 PHQ-9: PHQ-9 Score PHQ-9: Total score 0 01/01/25 14:47 Depression Screening Interpretation: Negative Thrive Assessment: Date of Thrive Assessment Date Thrive assessed 12/29/24 01/01/25 14:26 Currently or been in a relationship where the following occur: No concerns reported Coding Level of Care Code Est Pt Level 4 (82826) Complex EM visit Add On G2211 Diagnoses Hyperthyroidism E05.90 Ductal carcinoma in situ (DCIS) of breast, unspecified laterality D05.10 Laterality: unspecified laterality Migraine equivalent G43.109 Additional Codes JADYN-7 Assessment Billing - JADYN-7 Assessment Tool: JADYN-7 Assessment 67669 ([id number]) PHQ-9 - 77860 - PHQ-9 Billing: Yes ([id number]) Assessment & Plan Assessment & Plan (1) Hyperthyroidism: Comment: secondary to subacute thyroiditis Code(s): E05.90 - Thyrotoxicosis, unspecified without thyrotoxic crisis or storm Category: Medical (2) DCIS (ductal carcinoma in situ): Code(s): D05.10 - Intraductal carcinoma in situ of unspecified breast Category: Medical Qualifiers: Laterality: unspecified laterality Qualified Code(s): D05.10 - Intraductal carcinoma in situ of unspecified breast (3) Migraine equivalent: Code(s): G43.109 - Migraine with aura, not intractable, without status migrainosus Category: Medical Plan 74 year old to establish care Past medical, surgical, social reviewed Breast cancer-continues anastrazole. UTD HLD Reviewed ASCVD risk-she will sop the statin Labs ordered, return in 7 months for CPE Orders: Orders Comprehensive Met. 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, E05.90 - Thyrotoxicosis, unspecified without thyrotoxic crisis or storm, G43.109 - Migraine with aura, not intractable, without status migrainosus, K58.9 - Irritable bowel syndrome, unspecified Complete Blood Count Auto Diff 7 Months D05.10 - Intraductal carcinoma in situ of unspecified breast, E05.90 - Thyrotoxicosis, unspecified without thyrotoxic crisis or storm, G43.109 - Migraine with aura, not intractable, without status migrainosus, K58.9 - Irritable bowel syndrome, unspecified Lipid 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, E05.90 - Thyrotoxicosis, unspecified without thyrotoxic crisis or storm, G43.109 - Migraine with aura, not intractable, without status migrainosus, K58.9 - Irritable bowel syndrome, unspecified TSH reflex Free T4 7 Months D05.10 - Intraductal carcinoma in situ of unspecified breast, E05.90 - Thyrotoxicosis, unspecified without thyrotoxic crisis or storm, G43.109 - Migraine with aura, not intractable, without status migrainosus, K58.9 - Irritable bowel syndrome, unspecified Vitamin D 25-OH (D2 and D3) 7 Months D05.10 - Intraductal carcinoma in situ of unspecified breast, E05.90 - Thyrotoxicosis, unspecified without thyrotoxic crisis or storm, G43.109 - Migraine with aura, not intractable, without status migrainosus, K58.9 - Irritable bowel syndrome, unspecified Medications: Discontinued atorvastatin Discontinued Reason: Doctor's Order 20 mg PO BEDTIME 90 tabs 1RF
--- OUTSIDE RECORDS SUMMARY | 2025-01-01 15:31 | XMS_ITS | Clinical Summary ---
Author Organization [facility] Address [address] [address] Phone Care Team Providers Care Weather Strip Mechanic Name Role Phone Unavailable Primary Care Provider [...] Not on file [place] [address] [employer] SUPPLEMENT MEDICARE PART A & B Evelina C[place], [place] [id number] [employer] SUPPLEMENT MEDICARE PART A & [place] [address] [employer] MEDEX SUPPLEMENT MEDICARE PART A & [place] [address] [employer] MEDEX SUPPLEMENT MEDICARE PART A & B [employer] MEDEX SUPPLEMENT MEDICARE PART A & [place] [address] [employer] MEDEX SUPPLEMENT MEDICARE PART A & [place] [address] [employer] MEDEX SUPPLEMENT MEDICARE PART A & [place] [address] [employer] MEDEX SUPPLEMENT MEDICARE PART A & [place] [address] [employer] MEDEX SUPPLEMENT MEDICARE PART A & B Additional Source Comments The information contained in this document represents components of the legal health record. It is not the complete legal health record.[facility]
== END 2025-01-01 15:18 | disposition home or self-care (01) ==
PROVIDERS: PCP Internal Medicine; Visit Provider Internal Medicine
DX: E05.90 Thyrotoxicosis, unspecified without thyrotoxic crisis or storm (principal); D05.10 Intraductal carcinoma in situ of unspecified breast; G43.109 Migraine with aura, not intractable, without status migrainosus

== ENCOUNTER → 2025-01-01 14:08 | Outpatient (BNVA) | payer MEDICARE, SELFPAY | PROVIDERS: PCP Internal Medicine; Visit Provider Internal Medicine | DX: Z76.89 Persons encountering health services in other specified circumstances (principal); E05.90 Thyrotoxicosis, unspecified without thyrotoxic crisis or storm; D05.10 Intraductal carcinoma in situ of unspecified breast; G43.109 Migraine with aura, not intractable, without status migrainosus; Z79.811 Long term (current) use of aromatase inhibitors; Z13.31 Encounter for screening for depression; Z13.39 Encounter for screening examination for other mental health and behavioral disorders | CPT/HCPCS: 96127; 99212 ==

== ENCOUNTER 2025-01-07 10:53 | Outpatient (AMB) | payer MEDICARE, SELFPAY ==
--- NOTE | 2025-01-07 10:54 | MHC.OFFVIS ---
Intake Visit Reasons: u/s follow up Allergies sulfamethoxazole (From Bactrim) Allergy (Intermediate, Verified 01/01/25 14:22) Diarrhea trimethoprim (From Bactrim) Allergy (Intermediate, Verified 01/01/25 14:22) Diarrhea ibuprofen Adverse Reaction (Unknown, Verified 01/01/25 14:22) Gastrointestinal Upset HPI Comments Details: The patient is schedule telehealth visit regarding ultrasound follow-up. No complaints no pelvic pain pressure or vaginal bleeding. Pelvic ultrasound done recently showed the following: Uterus: The uterus is normal in size, measuring 6.2 x 4.3 x 5.6 cm. Myometrium has a normal echotexture. Again seen is an anterior fibroid measuring 3.3 x 2.8 x 3.7 cm (previously 4.2 x 3.4 x 4.2 cm) and an additional calcified anterior fibroid measuring 0.7 x 0.6 x 0.9 cm (previously 0.7 x 0.6 x 0.8 cm). There is a posterior fibroid measuring 1.7 x 1.2 x 1.2 cm which was not visualized on the prior study. Endometrium: The endometrial stripe is not well visualized. There is a nabothian cyst in the cervix. Right ovary: The right ovary measures 1.5 x 0.7 x 1.4 cm. The right ovary is normal in size and echotexture. Left ovary: The left ovary is not visualized. Pelvic fluid: none. [facility] Medical History (Updated 01/07/25 @ 10:56 by Cb Fierro MD) Irritable bowel syndrome without diarrhea Encounter for screening for malignant neoplasm of colon Back pain Arthritis Ductal carcinoma of breast Hyperthyroidism No significant medical problems Surgical History (Updated 01/01/25 @ 14:41 by Ibeth Blanco CMA) Hx of tonsillectomy History of lumpectomy of left breast History of H/O colonoscopy (09/19/20) Family History (Updated 01/01/25 @ 14:41 by Ibeth Blanco CMA) Mother Metastatic melanoma Social History (Updated 01/01/25 @ 14:41 by Ibeth Blanco CMA) Household Members: Spouse Housing: House Alcohol intake: current Alcohol intake frequency: a few times a week Patient Tobacco Use Status: Never used Tobacco service: No Current occupational status: retired Sexual orientation: Straight/Heterosexual Gender identity: Female Cognitive needs: No Hearing needs: No Vision needs: Yes (rx glasses) Female Reproductive History Menstrual Age of Menarche: 14 Review of Systems Const All systems reviewed & are unremarkable except as noted in HPI and below Reports as per HPI and Reports no additional complaints GI Reports no additional complaints Reports no additional complaints Telehealth Telehealth Telehealth Platform: Telephone Location of provider rendering services: practice address Location of patient: address on file Patient Identification confirmed using: Name, : Yes Telehealth method: voice only Patient verbally consented to treatment: Yes Patient verbally consented to billing insurance company: Yes Patient informed of any privacy concerns related to visit: Yes Minutes spent on Phone/Video with Pt.: 2 Assessment & Plan Assessment & Plan (1) Uterine myoma: Code(s): D25.9 - Leiomyoma of uterus, unspecified Category: Medical Plan: Discussed with the patient the findings on pelvic ultrasound Will repeat pelvic ultrasound in a year, order placed Instructions given to patient to call in case any of the following occurs: pressure symptoms, abnormal uterine bleeding, pelvic pain; and to schedule a 12 months pelvic ultrasound (order placed) and a follow-up appointment . All questions answered, the patient verbalized understanding and agreed with the plan . I spent a total of 20 minutes reviewing the chart, talking to the patient via phone and documenting in the medical record. Orders: Orders US pelvic and transvaginal 1 Year D25.9 - Leiomyoma of uterus, unspecified Coding Level of Care Code Tele Est Pt Level 3 (52572) Diagnoses Uterine myoma D25.9
--- OUTSIDE RECORDS SUMMARY | 2025-01-07 13:15 | XMS_ITS | Clinical Summary ---
Author Organization [facility] Address [address] [address] Phone Care Team Providers Care Yarder Boss Name Role Phone Unavailable Primary Care Provider [...] Not on [place] [address] [employer] SUPPLEMENT MEDICARE PART A & B Evelina [place], [place] [address] [employer] SUPPLEMENT MEDICARE PART A & [place] [address] [employer]EX SUPPLEMENT MEDICARE PART A & [place] [address] [employer] MEDEX SUPPLEMENT MEDICARE PART A & B [employer] CROSS MEDEX SUPPLEMENT MEDICARE PART A & [place] [address] [employer]EX SUPPLEMENT MEDICARE PART A & [place] [address] [employer] MEDEX SUPPLEMENT MEDICARE PART A & [place] [address] [employer] SUPPLEMENT MEDICARE PART A & [place] [address] [employer] SUPPLEMENT MEDICARE PART A & B Additional Source Comments The information contained in this document represents components of the legal health record. It is not the complete legal health record.[facility]
== END 2025-01-07 11:13 | disposition home or self-care (01) ==
LOC: HO.HWS 10:53
PROVIDERS: PCP Internal Medicine; Visit Provider Obstetrics & Gynecology
DX: D25.9 Leiomyoma of uterus, unspecified (principal)
CPT/HCPCS: 99213